=== PATIENT | female | born 1950 ===

== ENCOUNTER 2022-09-17 14:45 | Inpatient (IN) | payer MEDICARE, BC, SELFPAY ==
[2022-09-17] VITALS (33 sets, daily range): BP systolic 117–157; BP diastolic 57–107; PULSE 91–126; RESP 4–28; TEMP 31–37.5; O2SAT 90–97
--- NOTE | 2022-09-17 15:00 | DI.RAD_ITS ---
Exam(s) XR PORTABLE CHEST AP EXAM: XR PORTABLE CHEST AP CLINICAL HISTORY: shortness of breath. TECHNIQUE: 2D digital imaging was performed. COMPARISON: CR XR CHEST 1 VW from 05/26/2022 FINDINGS: Single AP portable view. Heart size is upper normal. The mediastinum is not widened. Hyperinflation again noted but there is now atelectasis in the left lung base-left lower lobe. Right lung is clear. No pleural effusions. No pulmonary edema. IMPRESSION: Left lung base atelectasis and what is probably developing infiltrate. No pleural effusions. DATA REPOSITORY: RADIATION DOSE DELIVERED:
--- NOTE | 2022-09-17 15:00 | RT.EKG_ITS ---
APPROVED REPORT Exam: Resting ECG Reason for Exam: dyspnea Patient Location: E HR:96 bpm ECG Measurements Heart Rate 96 AXIS TN 138 P 77 QRSd 85 QRS 75 QT 333 T 80 QTc 420 Conclusion Sinus rhythm...normal P axis, V-rate 60- 99
--- NOTE | 2022-09-17 15:03 | ED.GENADUL_ITS ---
Discharge Plan Disposition Patient Disposition: Admit to [facility] Condition: Stable Discharge Details Chief Complaint: RespSymp Clinical Impression: COPD exacerbation Primary Care Provider: Yang Burgos ED Provider: Francisco Oviedo Home Meds and New Rx's Prescriptions: No Action alum-mag hydroxide-simeth [Mylanta Maximum Strength] 400-400-40 mg/5 mL suspension 5 ml PO QID PRN azithromycin 250 mg tablet 250 mg PO DAILY Rx Instructions: Take 1 tablet by mouth daily for 4 days prednisone 20 mg tablet 20 mg PO DAILY Rx Instructions: Take 2 tablets by mouth daily for 5 days albuterol sulfate 2.5 mg /3 mL (0.083 %) solution for nebulization 2.5 mg inhalation Q6H PRN albuterol sulfate 90 mcg/actuation HFA aerosol inhaler See Rx Instructions inhalation DIRECTED Rx Instructions: inhaled as directed; lorazepam 0.5 mg tablet 0.5 mg PO DAILY PRN montelukast 10 mg tablet 10 mg PO DAILY Mucinex 1,200 mg tablet extended release 12hr 1,200 mg PO BID prednisone 5 mg tablet 10 mg PO DAILY sertraline 25 mg tablet 75 mg PO DAILY Spiriva with HandiHaler 18 mcg capsule, w/inhalation device 1 cap inhalation DAILY Rx Instructions: puncture 1 cap using device; one dose = 2 inhalations trazodone 150 mg tablet 150 mg PO QHS PRN Medical Decision Making 72 yo female with hx of severe copd on home o2 who comes in with 2-3 weeks of slowly worsening shortness of breath. She was seen at [facility] 2 days ago and then [facility] yesterday and was offered admission but reportedly declined at that time. She is chronically on prednisone and was started on azithromycin yesterday. She went to her first pulmonology visit today and due to her work of breathing was referred here. She denies fevers, chest pain/pressure, has had a cough. She is 92% on 4L NC and can only speak in 3-4 word sentences at most. She is caox4, has diffuse wheezing bilaterally, no pedal edema or calf tenderness, no murmurs. Her history and presentation are consistent with a copd exacerbation, will treat with iv solumedrol, duoneb and reassess. She has no evidence of dvt on exam and her exam is consistent with copd so doubt PE at this time and also had negative cta yesterday at [facility], and no chest pain/pressure to suggest acs, will obtain ecg and troponin to screen for this along with cbc and cmp and portable chest xray. She does confirm that she is dnr/dni. pt stable, still with wheezing and tachypnea, xray read as possible left lower developing infiltrate. Given her age and underlying copd do not feel she is safe for d/c, discussed with Dr. Alexis who accepts for admission, requests iv azithro and cefepime be given. Pt and daughter in agreement with plan. Differential Diagnosis Differential Diagnosis: copd, pneumonia, covid Imaging Data Radiologic Study: Attestation: I personally reviewed and interpreted this imaging study as follows: Imaging: X-Ray Radiologist's impression: possible developing left lower lobe infiltrate Lab Data Lab results reviewed: Yes I reviewed the patient's lab results. ECG Data Attestation: I personally reviewed and interpreted this ECG (s) as follows: Prior ECG tracings: not available for review Interpretation: sinus rhythm, rate of 96, pr 138, qtc 420, no stemi HPI General Mode of arrival: wheelchair . Date/Time Provider Initiated Documentation: 09/17/22 14:51 . Limitations to Documentation: no limitations . Information obtained by: patient . History of Present Illness 72 year old F presents to the emergency department with the chief complaint of shortness of breath, described as moderate, Patient started experiencing this week(s) (2) and it has been constant. No relieving factors improve symptom(s), No exacerbating factors reported . Patient notes cough; denies chest pain, fever/chills and nausea/vomiting. Patient did receive the following treatments prior to arrival, none Related Data Home Medications Medication Instructions Recorded Confirmed albuterol sulfate 2.5 mg/3 mL 2.5 mg inhalation Q6H PRN 07/13/22 09/17/22 (0.083 %) solution for nebulization albuterol sulfate 90 mcg/actuation See Rx Instructions inhalation 07/13/22 09/17/22 aerosol inhaler DIRECTED guaifenesin 1,200 mg tablet, 1,200 mg PO BID 07/13/22 09/17/22 extended release 12 hr (Mucinex) lorazepam 0.5 mg tablet 0.5 mg PO DAILY PRN 07/13/22 09/17/22 montelukast 10 mg tablet 10 mg PO DAILY 07/13/22 09/17/22 prednisone 5 mg tablet 10 mg PO DAILY 07/13/22 09/17/22 sertraline 25 mg tablet 75 mg PO DAILY 07/13/22 09/17/22 tiotropium bromide 18 mcg capsule 1 cap inhalation DAILY 07/13/22 09/17/22 with inhalation device (Spiriva with HandiHaler) trazodone 150 mg tablet 150 mg PO QHS PRN 07/13/22 09/17/22 aluminum-mag hydroxide-simethicone 5 ml PO QID PRN 09/17/22 09/17/22 400 mg-400 mg-40 mg/5 mL oral susp (Mylanta Maximum Strength) azithromycin 250 mg tablet 250 mg PO DAILY 09/17/22 09/17/22 prednisone 20 mg tablet 20 mg PO DAILY 09/17/22 09/17/22 Allergies Allergy/AdvReac Type Severity Reaction Status Date / Time escitalopram [From Lexapro] Allergy Unknown Nausea Verified 09/17/22 14:53 General Stated Complaint: RespSymp JOSEPHINE: 2 Review of Systems All systems reviewed & are unremarkable except as noted in HPI and below Constitutional Constitutional: Denies chills, Denies fever(s) and Denies weakness Cardiovascular Cardiovascular: Denies chest pain Respiratory Respiratory: Reports cough Gastrointestinal Gastrointestinal: Denies abdominal pain, Denies nausea and Denies vomiting Integumentary/Breasts Skin/Breast: Denies rash Neurologic Neurologic: Denies weakness PFSH All Active Problems (Updated 09/17/22 @ 16:22 by Francisco Oviedo MD) COPD exacerbation (Acute) Anxiety disorder, unspecified (Acute) Depression, unspecified (Chronic) Oxygen dependent (Acute) Diabetes (Chronic) COPD (chronic obstructive pulmonary disease) (Chronic) Medical History (Updated 09/17/22 @ 16:22 by Francisco Oviedo MD) Left breast lump Surgical History (Updated 07/13/22 @ 13:42 by Erna Gan) Cataract Family History (Updated 07/18/22 @ 11:20 by Aury Alcantara RN, RN) Father Cancer Brother Heart disease Heart attack Mother Heart disease Social History (Updated 07/18/22 @ 11:19 by Aury Alcantara RN, RN) Smoking/Tobacco Use Status: Former Tobacco Use Quit Date: 07/01/18 Tobacco: How many years used: 42 Smoking risk assessment performed?: Yes Alcohol Intake: never Drug use: Never Substance use type: does not use Exam Const Orientation: alert HENMT Head: normal to inspection Ears: external ears normal General nose exam: external nose normal Mouth: moist mucous membranes Eyes General: appearance normal, both eyes and all related structures Neck Neck: normal visual inspection Resp Effort & Inspection: not able to speak in complete sentences Auscultation: wheezes Cardio Rate: regular rate Heart Sounds: no murmurs Skin General skin exam: no rashes or lesions noted Neuro General: patient alert and patient oriented x3 Extrem General: normal to inspection Psych Mental Status: mental status grossly normal Course Vital Signs Vital signs: Vital Signs Temperature 36.8 C 09/17/22 14:49 Pulse 110 H 09/17/22 14:49 Respiratory Rate 26 H 09/17/22 14:49 Blood Pressure 143/77 H 09/17/22 14:49 Pulse Oximetry 94 09/17/22 14:49 Temperature 36.8 C 09/17/22 14:49 Temperature Source Oral 09/17/22 14:49 Pulse 110 H 09/17/22 14:49 Respiratory Rate 26 H 09/17/22 14:49 Respiratory Effort Short of Breath 09/17/22 14:54 Blood Pressure 143/77 H 09/17/22 14:49 Blood Pressure Position Sitting 09/17/22 14:49 Pulse Oximetry 94 09/17/22 14:49 Oxygen Delivery Method Nasal Cannula 09/17/22 14:49 Oxygen Flow Rate 4 09/17/22 14:49 Pain Level 0 09/17/22 14:49 Lab/Test Results Lab/Test Results: 09/17/22 15:00 Blood Blood Culture - Pending 09/17/22 15:00 Blood Blood Culture - Pending
[2022-09-17 15:09] LABS: BE (Venous) 4 mmol/L (-2-3); HCO3 (Venous) 29 mmol/L (23-28); O2 Sat (Venous) 85 %; TCO2 (Venous) 26 mmol/L (24-29); pCO2 (Venous) 51 mmHg (41-51); pH (Venous) 7.37 (7.31-7.41); pO2 (Venous) 49 mmHg
[2022-09-17 15:10] LABS: Abs Immature Grans 0.09 10^3/uL (0.0-0.06); Absolute Basophil Count 0.03 10^3/uL (0.0-0.2); Absolute Eosinophil Count 0.03 10^3/uL (0.0-0.7); Absolute Lymphocyte Count 0.84 10^3/uL (1.2-3.4); Absolute Monocyte Count 0.82 10^3/uL (0.1-0.8); Absolute Neutrophil Count 11.38 10^3/uL (1.2-6.7); Basophils % 0.2; Eosinophils % 0.2; HCT 47.5 % (36.0-46.0); Immature Grans % 0.7; Lymphocytes % 6.4; MCH 28.4 pg (27.0-33.0); MCHC 31.6 % (32.0-36.0); MCV 90 fL (80-95); MPV 8.9 fL (8.0-11.0); Monocytes % 6.2; Neutrophils % 86.3; Platelet Count 236 10^3/uL (130-400); RBC 5.28 10^6/uL (3.93-5.22); RDW 13.8 % (11.7-14.6); RDW-SD 45.8 fL; WBC 13.19 10^3/uL (4.4-10.8)
[2022-09-17 15:12] LABS: BE 3 mmol/L (-2-3); HCO3 28 mmol/L (22-26); pCO2 42 mmHg (35-45); pH 7.43 (7.35-7.45); pO2 95 mmHg (80-105); sO2 98 % (95-98); tCO2 24 mmol/L (23-27)
[2022-09-17 15:15] LABS: FIO2L 3 L; Site Right Radial
[2022-09-17] MEDS: methylPREDNISolone SUCC 125 MG VIAL IVP (15:25)
[2022-09-17] MEDS: Normal Saline Flush 10 ML SYR IVP ×3 (15:26→20:25)
[2022-09-17] MEDS: Albuterol/Ipratropium 3 ML UPD VIAL UPD (15:35)
[2022-09-17 15:39] LABS: ALT 23 U/L (14-59); AST 13 U/L (15-37); Albumin 3.6 g/dL (3.4-5.0); Alkaline Phosphatase 93 U/L (46-116); BUN 14 mg/dL (7-18); Bilirubin, Total 0.4 mg/dL (0.2-1.0); CREATININE 0.8 mg/dL (0.55-1.02); Calcium 9.4 mg/dL (8.5-10.1); Chloride 105 mmol/L (98-107); Estimated GFR 79.22 (mL/min/1.73m2); Glucose 160 mg/dL (74-106); Magnesium 2.3 mg/dL (1.8-2.4); NT-proBNP 103 pg/mL (<300); Potassium 4.2 mmol/L (3.5-5.1); Sodium 141 mmol/L (136-145); Total Protein 7.2 g/dL (6.4-8.2); Troponin I < 50 ng/L (<or=60)
--- NOTE | 2022-09-17 15:43 | RESPIRATORY ---
RT called to bedside for pt in reported COPD exacerbation. On arrival, pt's SpO2 was 98% on 4L nasal cannula. Pt states that she normally wears 3-4L O2 through [employer] and has had O2 for approximately 2 years. RT leticia ABG which showed PH 7.43 / PCO2 42 / PO2 95 / HCO3 28. Lungs were diminished throughout with some noted rhonchi on the ride side. RT administered Duoneb and titrated O2 to maintain SpO2 88-92% per COPD guidelines. RT also educated pt on good breathing techniques, and use and purpose of incentive spirometer and acapella devices.
[2022-09-17 16:08] LABS: Procalcitonin < 0.1 ng/mL
[2022-09-17 16:29] LABS: COVID-19 PCR Negative (Negative); Influenza A PCR Negative (Negative); Influenza B PCR Negative (Negative); RSV PCR Negative (Negative)
[2022-09-17 16:31] LABS: Source Nasopharynx
[2022-09-17] MEDS: CEFEPIME 2 GM in Normal Saline 100 ML IVPB (16:41)
--- NOTE | 2022-09-17 18:49 | W.PM.HP.N ---
Date of service: 09/17/22 Time of Service: 18:49 Assessment and Plan Assessment and plan (1) COPD exacerbation: Status: Acute Assessment and plan: Chronic end stage COPD; Acute exacerbationl possible pneumonia IV steroids, oxygen, nebulizers, VBG pending; abx Cefepime and Azithromycin IV Takes Prednisone daily Pulmonology consult Morphine PRN (2) Anxiety disorder, unspecified: Status: Chronic Assessment and plan: Chronic - Continue Trazadone 150 mg HS Lorazepam PRN (3) Depression, unspecified: Status: Chronic Assessment and plan: Chronic; continue home meds Sertraline 75 mg daily (4) Oxygen dependent: Status: Acute Assessment and plan: Chronic home O2; adjust O2 as needed - does not want to be intubated, reviewed and confirmed, also DNR, OK for BiPap or high flow O2 as needed. (5) DVT prophylaxis: Status: Acute Assessment and plan: Enoxaparin 40 mg daily (6) Discharge planning issues: Status: Acute Assessment and plan: Home when stable Out pt Pulmonology referral History of Present Illness History of Present Illness Chief Complaint: Difficulty breathing Narrative: This is a 72 yo female patient with pmhx of severe copd on home o2 who presented to the [facility] ED, being sent from her pulmonology appointment. She complained of 2-3 weeks of slowly worsening shortness of breath. She was seen at [facility] 2 days ago and then [facility] yesterday and was offered admission to both hospitals, but reportedly declined at that time. She is chronically on prednisone and was started on oral azithromycin yesterday. She denied fevers, chest pain/pressure, has had a cough. She was 92% on 4L NC and could only speak in 3-4 word sentences at most. She was caox4, had diffuse wheezing bilaterally, no pedal edema or calf tenderness, no murmurs. Her history and presentation were consistent with a copd exacerbation. She was started on solumedrol, duonebs. She did have a negative Chest CTA yesterday @ [facility]. CXR here, possible developing infiltrate LLL. She is admitted to the medical floor for treatment of COPD. Reviewed code status - confirmed DNR/DNI, willing to do high flow oxygen, and BiPap as needed. One word dyspnea on adm to floor - discussed tx with Dr Alexis. Discussed with Dr Murillo. Review of Systems All systems reviewed & are unremarkable except as noted in HPI and below PFSH All Active Problems (Updated 09/17/22 @ 22:38 by Carina Graham NP) Discharge planning issues (Acute) DVT prophylaxis (Acute) COPD exacerbation (Acute) Anxiety disorder, unspecified (Chronic) Depression, unspecified (Chronic) Oxygen dependent (Acute) Diabetes (Chronic) COPD (chronic obstructive pulmonary disease) (Chronic) Medical History (Updated 09/17/22 @ 22:38 by Carina Graham NP) Left breast lump Surgical History (Updated 07/13/22 @ 13:42 by Erna Gan) Cataract Family History (Updated 07/18/22 @ 11:20 by Aury Alcantara RN, RN) Father Cancer Brother Heart disease Heart attack Mother Heart disease Social History (Updated 07/18/22 @ 11:19 by Aury Alcantara RN, RN) Smoking/Tobacco Use Status: Former Tobacco Use Quit Date: 07/01/18 Tobacco: How many years used: 42 Smoking risk assessment performed?: Yes Alcohol Intake: never Drug use: Never Substance use type: does not use Meds Allergies and Home Medications Allergies Allergy/AdvReac Type Severity Reaction Status Date / Time escitalopram [From Lexapro] Allergy Unknown Nausea Verified 09/17/22 14:53 Home Medications Medication Instructions Recorded Confirmed Type albuterol sulfate 2.5 mg/3 mL 2.5 mg inhalation Q6H PRN 07/13/22 09/17/22 History (0.083 %) solution for nebulization albuterol sulfate 90 mcg/actuation See Rx Instructions inhalation 07/13/22 09/17/22 History aerosol inhaler DIRECTED guaifenesin 1,200 mg tablet, 1,200 mg PO BID 07/13/22 09/17/22 History extended release 12 hr (Mucinex) montelukast 10 mg tablet 10 mg PO DAILY 07/13/22 09/17/22 History prednisone 5 mg tablet 10 mg PO DAILY 07/13/22 09/17/22 History sertraline 25 mg tablet 75 mg PO DAILY 07/13/22 09/17/22 History tiotropium bromide 18 mcg capsule 1 cap inhalation DAILY 07/13/22 09/17/22 History with inhalation device (Spiriva with HandiHaler) trazodone 150 mg tablet 150 mg PO QHS PRN 07/13/22 09/17/22 History budesonide-formoterol HFA 160 2 puff inhalation Q12H 09/17/22 09/17/22 History mcg-4.5 mcg/actuation aerosol inhaler (Symbicort) prednisone 20 mg tablet 40 mg PO DAILY 09/17/22 09/17/22 History Exam Const General: anxious, frail appearing and ill appearing Orientation: alert, awake and oriented x3 HENMT Head: normal to inspection Ears: external ears normal General nose exam: external nose normal Mouth: moist mucous membranes Eyes General: appearance normal, both eyes and all related structures Neck Neck: normal visual inspection Chest Chest: normal inspection of the chest Resp Effort & Inspection: not able to speak in complete sentences (1 word dyspnea) Auscultation: wheezes expiratory wheezes, inspiratory wheezes and scattered wheezes Cardio Jugular venous pressure: no JVD Rate: regular rate Heart Sounds: no murmurs GI Inspection: normal to inspection Auscultation: normal bowel sounds Back/Spine/Pelvis Back: no CVA tenderness Skin General skin exam: no rashes or lesions noted Neuro General: patient alert, patient awake, patient oriented x3 and moves all extremities Extrem General: normal to inspection, full ROM and capillary refill normal Psych Mental Status: mental status grossly normal Results Labs 09/17/22 14:55 09/17/22 14:55 Labs: Laboratory Results - last 24 hr 09/17/22 09/17/22 09/17/22 14:55 14:55 14:55 WBC 13.19 H RBC 5.28 H Hgb 15.0 Hct 47.5 H MCV 90 MCH 28.4 MCHC 31.6 L RDW 13.8 Plt Count 236 MPV 8.9 Immature Gran % 0.7 Neutrophils % 86.3 Lymphocytes % 6.4 Monocytes % 6.2 Eosinophils % 0.2 Basophils % 0.2 Nucleated RBC % 0.0 Absolute Neutrophils 11.38 H Absolute Lymphocytes 0.84 L Absolute Monocytes 0.82 H Absolute Eosinophils 0.03 Absolute Basophils 0.03 ABG Sample Site ABG pH ABG pCO2 ABG pO2 ABG HCO3 ABG Total CO2 ABG O2 Saturation ABG Base Excess VBG pH VBG pCO2 VBG pO2 VBG HCO3 VBG Total CO2 VBG O2 Saturation VBG Base Excess Oxygen Liter Flow Sodium 141 Potassium 4.2 Chloride 105 Carbon Dioxide 29.0 Anion Gap 7.0 BUN 14 Creatinine 0.8 Est GFR (CKD-EPI 2020) 79.22 Glucose 160 H Calcium 9.4 Magnesium 2.3 Total Bilirubin 0.4 AST 13 L ALT 23 Alkaline Phosphatase 93 Troponin I < 50 NT-Pro-B Natriuret Pep 103 Total Protein 7.2 Albumin 3.6 Procalcitonin < 0.1 COVID-19 Source SARS-CoV-2 (PCR) Influenza Type A (PCR) Influenza Type B (PCR) RSV (PCR) 09/17/22 09/17/22 09/17/22 14:55 15:10 15:30 WBC RBC Hgb Hct MCV MCH MCHC RDW Plt Count MPV Immature Gran % Neutrophils % Lymphocytes % Monocytes % Eosinophils % Basophils % Nucleated RBC % Absolute Neutrophils Absolute Lymphocytes Absolute Monocytes Absolute Eosinophils Absolute Basophils ABG Sample Site Right Radial ABG pH 7.43 ABG pCO2 42 ABG pO2 95 ABG HCO3 28 H ABG Total CO2 24 ABG O2 Saturation 98 ABG Base Excess 3 VBG pH 7.37 VBG pCO2 51 VBG pO2 49 VBG HCO3 29 H VBG Total CO2 26 VBG O2 Saturation 85 VBG Base Excess 4 H Oxygen Liter Flow 3 Sodium Potassium Chloride Carbon Dioxide Anion Gap BUN Creatinine Est GFR (CKD-EPI 2020) Glucose Calcium Magnesium Total Bilirubin AST ALT Alkaline Phosphatase Troponin I NT-Pro-B Natriuret Pep Total Protein Albumin Procalcitonin COVID-19 Source Nasopharynx SARS-CoV-2 (PCR) Negative Influenza Type A (PCR) Negative Influenza Type B (PCR) Negative RSV (PCR) Negative Last Vital Signs Temp 37.5 C 09/17/22 18:03 Pulse 94 H 09/17/22 18:03 Resp 22 09/17/22 18:03 BP 133/70 09/17/22 18:03 Pulse Ox 92 09/17/22 18:03 Time Spent Time spent with Patient: 55-74 minutes Time was spent: preparing to see the patient(eg.review tests), obtaining and/or reviewing separately otained hiistory, ordering medications,tests, procedures, referring, communicating with other health home care and home health aides teacher, indepentently interpreting results, counseling the patient and care coordination
[2022-09-17] MEDS: Albuterol 2.5 MG/3 ML INH SOLN VIAL IH ×2 (19:20→23:11)
[2022-09-17] MEDS: guaiFENesin 600 MG TABCR 1200 MG PO (19:22)
[2022-09-17] MEDS: LORazepam 0.5 MG TAB PO (19:27)
[2022-09-17 19:48] LABS: BE (Venous) 3 mmol/L (-2-3); HCO3 (Venous) 27 mmol/L (23-28); O2 Sat (Venous) > 99 %; pCO2 (Venous) 43 mmHg (41-51); pH (Venous) 7.41 (7.31-7.41); pO2 (Venous) 186 mmHg
[2022-09-17 20:17] LABS: Troponin I < 50 ng/L (<or=60)
[2022-09-17] MEDS: MORPHine 2 MG/ML SYR 1 MG IVP (20:23)
[2022-09-17] MEDS: methylPREDNISolone SUCC 125 MG VIAL 60 MG IVP (20:24)
[2022-09-17] MEDS: MAGNESIUM SULFATE 1 GM/100 ML BAG IVPB (20:25)
[2022-09-17] MEDS: Enoxaparin 40 MG/0.4 ML SYR SC (20:25)
--- NOTE | 2022-09-17 20:40 | W.EVENT ---
Date of service: 09/17/22 Time of Service: 20:40 Event Note: Carina was in respiratory extremis, tachypneic, tachycardic, using accessory respiratory muscles, diffuse tight wheezes w/ poor air movement. Stat VBG was ordered along w/ continous nebulizer w/ albuterol and additional solumdrol and magnesium. She was given morphine 1 mg ivp. After 3 back to back albuterol treatments and the morphine (and she also had her daily prn dose of ativan 0.5 mg po). She has calmed down and her work of breathing has improved. She did this right after getting out of bed to bedside commode. VBG came back looking much better than I anticipated w/ her pH 7.41, pCO2 43, pO2 186 (this was on total of 7lpm, 6lpm was running through her nebulizer and 1 lpm via her NC). At present I think she does not need the BIPAP. I had a discussion w/ Andrew from RT and Dr. Ramirez. We will try HFNC overnight. She will continue w/ scheduled duonebs every 4 hrs through the night and prn albuterol nebulizers. She will remain on solumedrol 60 mg iv q8hr and cefepime and azithromycin for her pneumonia. In the morning RT will discuss w/ Dr. Ramirez using the [employer] to help her mobilize her secretions. Time Spent with Patient Time spent in critical care(minutes): 60 Time Spent Included: Coordination of care, Chart review, Documenting critically ill care, Time at immediate bedside and Discussing critically ill care with other medical staff
[2022-09-17] MEDS: CEFEPIME 1 GM in Normal Saline 50 ML IVPB (22:16)
--- NOTE | 2022-09-17 22:19 | TELEP.MEDR_ITS ---
Date of service: 09/17/22 Time of Service: 22:19 Telepharmacy Home Med Rec Allergies Allergies: escitalopram [From Lexapro] Allergy (Unknown, Verified 09/17/22 14:53) Nausea Interview Person Interviewed: * patient Quality Quality of Interview/Accuracy of Medication List: Excellent Sources Sources used to compile medication list: Network Chemistry Medication List and Patient List Changes made to Home Medication List: ADDITIONS: * Symbicort 160/4.5mcg 1 puff inhalation BID * Prednisone 40mg Po daily (not started) DELETIONS: * Zithromax * Mylanta * Ativan CHANGES: * none Recommended Changes Attestation: The home medication list is now updated to the best of my knowledge and is ready to be reconciled by the provider. Please contact the TelePharmacy Medication Reconciliation Pharmacist at for any questions.
--- NOTE | 2022-09-17 22:19 | TELEP.MEDREC ---
Date of service: 09/17/22 Time of Service: 22:19 Telepharmacy Home Med Rec Allergies Allergies: escitalopram [From Lexapro] Allergy (Unknown, Verified 09/17/22 14:53) Nausea Interview Person Interviewed: patient Quality Quality of Interview/Accuracy of Medication List: Excellent Sources Sources used to compile medication list: [employer] Medication List and Patient List Changes made to Home Medication List: ADDITIONS: Symbicort 160/4.5mcg 1 puff inhalation BID Prednisone 40mg Po daily (not started) DELETIONS: Zithromax Mylanta Ativan CHANGES: none Recommended Changes Attestation: The home medication list is now updated to the best of my knowledge and is ready to be reconciled by the provider. Please contact the TelePharmacy Medication Reconciliation Pharmacist at for any questions.
[2022-09-17] MEDS: traZODone 100 MG TAB 150 MG PO (23:11)
[2022-09-18] VITALS (15 sets, daily range): BP systolic 128–153; BP diastolic 71–80; PULSE 80–108; RESP 4–20; TEMP 31–37.3; O2SAT 90–97
--- NOTE | 2022-09-18 | DI.CT_ITS ---
Exam(s) CT CHEST PE CTA EXAM: CT CHEST PE CTA CLINICAL HISTORY: dyspnea, hypoxia, elevated d-dimer. TECHNIQUE: Imaging Protocol: Axial CT angiography was performed with multi-slice acquisition and mu lti-planar and/or 3D reconstructions. CONTRAST MATERIAL: Intravenous: Omnipaque 350 contrast volume:100 mL COMPARISON: CR XR PORTABLE CHEST AP from 09/17/2022 FINDINGS: Tracheobronchial tree: Patent where visualized. Pulmonary parenchyma: Moderately severe emphysematous changes are present in the lungs. No focal con solidating infiltrates. Atelectasis or scarring is seen in the left lingula and the right lower lobe . Pulmonary Arteries: No evidence of filling defect to suggest pulmonary emboli. Mediastinum and [place]: No dominant adenopathy or fluid collection. The esophagus is unremarkable. Visualized thyroid gland: Unremarkable. Pleura: No effusion or pneumothorax. Heart: The heart is not dilated. Coronary artery calcification is present. No pericardial effusion. Aorta: Thoracic aorta non-dilated. No evidence of dissection. Atherosclerosis is present. Upper abdomen: There is a 3.4 cm infrarenal abdominal aortic aneurysm. There is a nonspecific 1 cm round hypodensity in the right lobe of the liver. It is too small for further characterization. Soft tissues: Unremarkable. Bones: Within normal limits for the patient's age.There is an old healed left rib fracture. IMPRESSION: 1. No evidence of pulmonary embolism, thoracic aortic dissection or aneurysm. 2. 3.4 cm infrarenal abdominal aortic aneurysm. This is incompletely imaged on the current examinati on. CT scan of the abdomen and pelvis or abdominal ultrasound may be obtained for further evaluation . 3. Moderately severe emphysematous changes in the lungs. Unexpected findings RADIATION DOSE DELIVERED: 300.1mGy.cm Total DLP DATA REPOSITORY: All CT scans at this facility are submitted to the National Radiology Data Registry (NRDR) Dose Index Registry (DIR) with the [employer] (A[employer]). RADIATION OPTIMIZATION: All CT scans at this facility use at least one of these dose optimization te chniques: automated exposure control; mA and/or kV adjustment per patient size (includes targeted exa ms where dose is matched to clinical indication); or iterative reconstruction.
[2022-09-18] MEDS: Budesonide/Formoterol 160/4.5 6 GM 60 PUFF INH IH ×2 (00:30→08:36)
[2022-09-18] MEDS: Normal Saline Flush 10 ML SYR IVP ×4 (04:28→21:06)
[2022-09-18] MEDS: methylPREDNISolone SUCC 125 MG VIAL 60 MG IVP (04:28)
[2022-09-18] MEDS: CEFEPIME 1 GM in Normal Saline 50 ML IVPB (06:23)
--- NOTE | 2022-09-18 06:54 | W.PULMCON ---
General Date Of Service Date of service: 09/18/22 Time of Service: 06:54 Reason for Consult: COPD Exacerbation Assessment and Plan Assessment and plan (1) COPD exacerbation: Status: Acute (2) Oxygen dependent: Status: Acute (3) Respiratory failure with hypoxia: Status: Acute (4) Anxiety disorder, unspecified: Status: Chronic (5) Pneumonia: Status: Acute Assessment and plan: This is a 72 yo admitted from pulmonary clinic yesterday for a COPD exacerbation. Based on her exam, her wheezing is improved from yesterday. Her CXR is not normal (CXR 09/16/22 at [facility] [place] read as normal) with a LLL pneumonia versus atelectasis as well as increased reticular markings appreciated. She likely has a developing pneumonia. Cefepime is likely more broad of coverage than she needs, so I have changed this to ceftriaxone. Additionally, I changed the Symbicort to low ICS dose and started her on Spiriva respimat (as opposed to home handihaler). Prednisone 40mg daily is enough steroid for her. I discontinued the continuous albuterol neb and I do not see the utility of this for her. Her VBG is normal and does not need BiPAP. She was placed on HFNC for work of breathing. I do think anxiety is contributing to her process significantly, and agree with the benzo prn to help with this. I have added a D-dimer to her labs. If this is elevated I will order for a CTPE. If it is negative, I will order her for a chest CT without to further evaluate her abnormal chest imaging. COPD Exacerbation - recommend against continuous nebs or BiPAP - recommend against continuous albuterol nebs - recommend Symbicort 80 (not high dose ICS) - recommend Spiriva respimat - recommend discharging on inhalers above - recommend prednisone 40mg daily with a taper upon D/C: - 40mg for 5 days, 30mg for 3 days, 20mg for 3 days, 10mg for 3 days, 5mg for 3 days - Duonebs QID - prn albuterol - agree with prn lorazepam Pneumonia - have changed cefepime to ceftriaxone - agree with azithromycin - Acapella and IS - no need for more advanced airway clearance at this time Hypoxic respiratory failure - 3-4 LPM O2 at baseline - recommend weaning off HFNC today back to NC if tolerated - no CO2 retention History of Present Illness Narrative: This is a 72 yo who was sent to the Ed from pulmonary clinic today for a COPD exacerbation. She is a new patient to us, who has moved from [place] (where she previously saw pulmonary). She is onSpiriva, albuterol, 5mg prednisone and required 3-4LPM O2. She was seen at [facility] 09/16/22 and was started on a prednisone burst and a Z-pack. She also presented to [facility] 09/09/22 for dyspnea as well. She had a CTA completed then which found no PE or infection. I am unable to view these images. During her visit at pulmonary clinic she was not feeling any better and appeared acutely decompensated during the visit. She was given a Duoneb treatment in clinic and we recommended ED presentation given her acute decompensation. She has a 50pack year smoking history and seems to have recurrent exacerbations. She is on HFNC for work of breathing. She was started on cefepime and azithromycin. She was also started on continuous albuterol for an unclear reason. Her CXR shows a likely LLL pneumonia vs atelectasis and increase reticular markings and a possible LLL nodule. She states she has had several PFT's in the past in [place], but we do not have access to these. Today she is states she slept okay overnight. She does not feel as though she has chest congestion and is not coughing a large amount of sputume up. She is unsure if she is feeling better as she has not gotten up to walk around yet. Review of Systems All systems reviewed & are unremarkable except as noted in HPI and below PFSH All Active Problems (Updated 09/18/22 @ 08:52 by Francheska Ramirez MD) Respiratory failure with hypoxia (Acute) Pneumonia (Acute) Discharge planning issues (Acute) DVT prophylaxis (Acute) COPD exacerbation (Acute) Anxiety disorder, unspecified (Chronic) Depression, unspecified (Chronic) Oxygen dependent (Acute) Diabetes (Chronic) COPD (chronic obstructive pulmonary disease) (Chronic) Medical History (Updated 09/18/22 @ 08:52 by Francheska Ramirez MD) Left breast lump Surgical History (Updated 07/13/22 @ 13:42 by Erna Gan) Cataract Family History (Updated 01/18/23 @ 11:20 by Aury Alcantara RN, RN) Father Cancer Brother Heart disease Heart attack Mother Heart disease Social History (Updated 07/18/22 @ 11:19 by Aury Alcantara RN, RN) Smoking/Tobacco Use Status: Former Tobacco Use Quit Date: 07/01/18 Tobacco: How many years used: 42 Smoking risk assessment performed?: Yes Alcohol Intake: never Drug use: Never Substance use type: does not use Visit Medication and Allergies Active Medications Generic Name Dose Route Start Last Admin Trade Name Freq PRN Reason Stop Dose Admin Albuterol Sulfate 2.5 mg 09/17/22 19:54 09/17/22 23:11 Albuterol 2.5 Mg/3 Ml Inh Soln Vial IH 2.5 mg Q1H PRN PRN Administration Albuterol/Ipratropium 3 ml 09/18/22 08:30 Albuterol/Ipratropium 3 Ml Upd Vial UPD QID ALIYAH Budesonide/Formoterol Fumarate 2 puff 09/17/22 23:00 09/18/22 00:30 Budesonide/Formoterol 160/4.5 6 Gm 60 Puff Inh IH 2 puff [phone] ALIYAH Administration Device 1 each 09/17/22 23:00 Inhaler, Assist Device MC DIRECTED ALIYAH Enoxaparin Sodium 40 mg 09/18/22 08:30 Enoxaparin 40 Mg/0.4 Ml Syr SC DAILY ALIYAH Guaifenesin 1,200 mg 09/17/22 20:00 09/17/22 19:22 Guaifenesin 600 Mg Tabcr PO 1,200 mg BID ALIYAH Administration Sodium Chloride 500 mls @ 0 mls/hr 09/17/22 15:00 Saline 500ml Bag IV PRN PRN As Directed Azithromycin 250 mg/ Sodium 500 mls @ 166.6 mls/hr 09/18/22 07:15 Chloride IVPB Q24H ALIYAH Ceftriaxone Sodium/Dextrose 1 gm in 50 mls @ 100 mls/hr 09/18/22 07:00 Rocephin IVPB Q24H ALIYAH IV Miscellaneous Supplies 1 each 09/17/22 15:00 Iv Access IV DIRECTED ALIYAH Lorazepam 0.5 mg 09/17/22 21:07 Lorazepam 0.5 Mg Tab PO TID PRN PRN Montelukast Sodium 10 mg 09/18/22 08:30 Montelukast 10 Mg Tab PO DAILY [facility] Morphine Sulfate 1 mg 09/17/22 19:52 Morphine 2 Mg/Ml Syr IVP Q2H PRN PRN Non-Formulary Medication 5 ml 09/17/22 18:57 Alum-Mag Hydroxide-Simeth [Mylanta Maximum Strength] PO QID PRN Non-Formulary Medication 1 cap 09/18/22 08:30 Tiotropium [place] [Spiriva With Handihaler] IH DAILY [facility] Prednisone 40 mg 09/18/22 08:30 Prednisone 20 Mg Tab PO DAILY [facility] Sertraline HCl 75 mg 09/18/22 08:30 Sertraline 25 Mg Tab PO DAILY [facility] Sodium Chloride 0 ml 09/17/22 15:00 09/18/22 06:24 Normal Saline Flush 10 Ml Syr IVP 20 ml PRN PRN Administration Trazodone HCl 150 mg 09/17/22 19:08 09/17/22 23:11 Trazodone 100 Mg Tab PO 150 mg HS PRN PRN Administration Allergies escitalopram [From Lexapro] Allergy (Unknown, Verified 09/17/22 14:53) Nausea Exam Narrative Exam Narrative: Gen: NAD, normal respiratory effort, well-nourished HENT: PERRL Chest: No respiratory distress, normal appearance of chest, slight expiratory wheezing bilateral lower lung bello Heart: regular rate and rhythym, no murmurs, rubs or gallops Abdomen: Non-distended, soft, non tender Extremities: No clubbing, edema, cyanosis, rashes Neuro: AAOx3 , non focal Psych: cooperative, appropriate mental affect Results Last Vital Signs Temp 36.4 C L 09/18/22 06:36 Pulse 82 09/18/22 06:36 Resp 18 09/18/22 06:36 BP 128/71 09/18/22 06:36 Pulse Ox 91 L 09/18/22 06:36 Labs 09/17/22 14:55 09/17/22 14:55 Labs: Laboratory Results - last 24 hr 09/17/22 09/17/22 09/17/22 14:55 14:55 14:55 WBC 13.19 H RBC 5.28 H Hgb 15.0 Hct 47.5 H MCV 90 MCH 28.4 MCHC 31.6 L RDW 13.8 Plt Count 236 MPV 8.9 Immature Gran % 0.7 Neutrophils % 86.3 Lymphocytes % 6.4 Monocytes % 6.2 Eosinophils % 0.2 Basophils % 0.2 Nucleated RBC % 0.0 Absolute Neutrophils 11.38 H Absolute Lymphocytes 0.84 L Absolute Monocytes 0.82 H Absolute Eosinophils 0.03 Absolute Basophils 0.03 ABG Sample Site ABG pH ABG pCO2 ABG pO2 ABG HCO3 ABG Total CO2 ABG O2 Saturation ABG Base Excess VBG pH VBG pCO2 VBG pO2 VBG HCO3 VBG Total CO2 VBG O2 Saturation VBG Base Excess Oxygen Liter Flow Sodium 141 Potassium 4.2 Chloride 105 Carbon Dioxide 29.0 Anion Gap 7.0 BUN 14 Creatinine 0.8 Est GFR (CKD-EPI 2020) 79.22 Glucose 160 H Calcium 9.4 Magnesium 2.3 Total Bilirubin 0.4 AST 13 L ALT 23 Alkaline Phosphatase 93 Troponin I < 50 NT-Pro-B Natriuret Pep 103 Total Protein 7.2 Albumin 3.6 Procalcitonin < 0.1 COVID-19 Source SARS-CoV-2 (PCR) Influenza Type A (PCR) Influenza Type B (PCR) RSV (PCR) 09/17/22 09/17/22 09/17/22 14:55 15:10 15:30 WBC RBC Hgb Hct MCV MCH MCHC RDW Plt Count MPV Immature Gran % Neutrophils % Lymphocytes % Monocytes % Eosinophils % Basophils % Nucleated RBC % Absolute Neutrophils Absolute Lymphocytes Absolute Monocytes Absolute Eosinophils Absolute Basophils ABG Sample Site Right Radial ABG pH 7.43 ABG pCO2 42 ABG pO2 95 ABG HCO3 28 H ABG Total CO2 24 ABG O2 Saturation 98 ABG Base Excess 3 VBG pH 7.37 VBG pCO2 51 VBG pO2 49 VBG HCO3 29 H VBG Total CO2 26 VBG O2 Saturation 85 VBG Base Excess 4 H Oxygen Liter Flow 3 Sodium Potassium Chloride Carbon Dioxide Anion Gap BUN Creatinine Est GFR (CKD-EPI 2020) Glucose Calcium Magnesium Total Bilirubin AST ALT Alkaline Phosphatase Troponin I NT-Pro-B Natriuret Pep Total Protein Albumin Procalcitonin COVID-19 Source Nasopharynx SARS-CoV-2 (PCR) Negative Influenza Type A (PCR) Negative Influenza Type B (PCR) Negative RSV (PCR) Negative 09/17/22 09/17/22 19:35 19:35 WBC RBC Hgb Hct MCV MCH MCHC RDW Plt Count MPV Immature Gran % Neutrophils % Lymphocytes % Monocytes % Eosinophils % Basophils % Nucleated RBC % Absolute Neutrophils Absolute Lymphocytes Absolute Monocytes Absolute Eosinophils Absolute Basophils ABG Sample Site ABG pH ABG pCO2 ABG pO2 ABG HCO3 ABG Total CO2 ABG O2 Saturation ABG Base Excess VBG pH 7.41 VBG pCO2 43 VBG pO2 186 VBG HCO3 27 VBG Total CO2 VBG O2 Saturation > 99 VBG Base Excess 3 Oxygen Liter Flow Sodium Potassium Chloride Carbon Dioxide Anion Gap BUN Creatinine Est GFR (CKD-EPI 2020) Glucose Calcium Magnesium Total Bilirubin AST ALT Alkaline Phosphatase Troponin I < 50 NT-Pro-B Natriuret Pep Total Protein Albumin Procalcitonin COVID-19 Source SARS-CoV-2 (PCR) Influenza Type A (PCR) Influenza Type B (PCR) RSV (PCR)
[2022-09-18 07:29] LABS: Abs Immature Grans 0.06 10^3/uL (0.0-0.06); Absolute Basophil Count 0.01 10^3/uL (0.0-0.2); Absolute Lymphocyte Count 0.63 10^3/uL (1.2-3.4); Absolute Monocyte Count 0.39 10^3/uL (0.1-0.8); Absolute Neutrophil Count 7.16 10^3/uL (1.2-6.7); Basophils % 0.1; HCT 41.3 % (36.0-46.0); HGB 13.3 g/dL (11.2-15.7); Immature Grans % 0.7; Lymphocytes % 7.6; MCH 28.9 pg (27.0-33.0); MCHC 32.2 % (32.0-36.0); MCV 90 fL (80-95); MPV 9.2 fL (8.0-11.0); Monocytes % 4.7; Neutrophils % 86.9; Platelet Count 209 10^3/uL (130-400); RBC 4.61 10^6/uL (3.93-5.22); RDW 13.9 % (11.7-14.6); WBC 8.25 10^3/uL (4.4-10.8)
[2022-09-18 07:38] LABS: Lab Add On Test DONE
[2022-09-18] MEDS: Sertraline 25 MG TAB 75 MG PO (07:39)
[2022-09-18] MEDS: LORazepam 0.5 MG TAB PO ×2 (07:40→21:44)
[2022-09-18] MEDS: guaiFENesin 600 MG TABCR 1200 MG PO ×2 (07:40→21:03)
[2022-09-18] MEDS: Enoxaparin 40 MG/0.4 ML SYR SC (07:40)
[2022-09-18] MEDS: predniSONE 20 MG TAB 40 MG PO (07:41)
[2022-09-18] MEDS: Montelukast 10 MG TAB PO (07:41)
[2022-09-18] MEDS: cefTRIAXone 1 GM/50 ML BAG IVPB (07:42)
[2022-09-18 07:46] LABS: Anion Gap 5.2 mmol/L (3-11); BUN 16 mg/dL (7-18); C-Reactive Protein 1.38 mg/dL (0.0-0.3); CO2 28.8 mmol/L (21.0-32.0); CREATININE 0.8 mg/dL (0.55-1.02); Calcium 8.5 mg/dL (8.5-10.1); Chloride 109 mmol/L (98-107); Estimated GFR 79.22 (mL/min/1.73m2); Glucose 144 mg/dL (74-106); Magnesium 2.5 mg/dL (1.8-2.4); Potassium 4.6 mmol/L (3.5-5.1); Sodium 143 mmol/L (136-145)
[2022-09-18] MEDS: Albuterol/Ipratropium 3 ML UPD VIAL UPD ×4 (08:36→21:02)
[2022-09-18 09:31] LABS: D-Dimer 1130 ng/mlFEU (<500)
--- NOTE | 2022-09-18 10:26 | PDOC.CMIN ---
- If Service Date Differs Date of service: 09/18/22 Time of Service: 10:26 Care Management Initial Assess REASON FOR HOSPITALIZATION:: Community acquired pneumonia, exacerbation of COPD PAST MEDICAL HISTORY/PAST SURGICAL HISTORY:: All Active Problems. Discharge planning issues (Acute). DVT prophylaxis (Acute). COPD exacerbation (Acute). Anxiety disorder, unspecified (Chronic). Depression, unspecified (Chronic). Oxygen dependent (Acute). Diabetes (Chronic). COPD (chronic obstructive pulmonary disease) (Chronic). Medical History. Left breast lump. Surgical History. Cataract PREVIOUS FUNCTIONAL STATUS/SOCIAL/FAMILY SUPPORTS:: Carina lives in [place]. She has a sister, brother in law, and daughter who live locally. She is independent at baseline. CURRENT FUNCTIONAL STATUS:: Carina was resting when CM attempted to meet with her. Earlier, she met with Palliative care to discuss goals of care. She also met with Pulmonology, who made recommendations for the treatment of her COPD, pneumonia, hypoxic respiratory failure, as well as anxiety. CM will continue to follow. ADVANCE DIRECTIVES:: On file. Maria E (sister) listed as agent. Has patient been provided with info about the portal/API?: Yes Did the patient sign up for the portal?: No CODE STATUS:: DNR/DNI INSURANCE COVERAGE / FINANCIAL ISSUES:: [employer]/ [employer] CURRENT HOME/COMMUNITY SERVICES/EQUIPMENT:: Home O2 provided by Benigno Orozco-Alli at baseline. PRIMARY CARE PHYSICIAN:: Yang Burgos POTENTIAL DISCHARGE NEEDS:: Evaluations for further needs, follow up appointments. PATIENT/FAMILY EDUCATION NEEDS:: Review discharge instructions and limitations, discussion of self care needs including ask me three. ANTICIPATED BARRIERS TO DISCHARGE:: None identified. TRANSPORTATION:: Via private vehicle by family. PLAN:: Anticipate Carina will return home once medically cleared. Her daughter will drive her home via private vehicle. She will follow up with her PCP and discharge plan of care. CM will continue to follow.
[2022-09-18] MEDS: Normal Saline - Diluent 50 ML VIAL IJ (10:40)
[2022-09-18] MEDS: Omnipaque 350 MG/ML 500 ML BTL-Imaging package IJ (10:41)
--- NOTE | 2022-09-18 11:09 | W.PALLCONSUL ---
Date of service: 09/18/22 Time of Service: 11:09 History of Present Illness Narrative: Carina Medeiros is a 72-year-old woman with severe COPD (requiring 3-4 L of supplemental oxygen, chronic prednisone), anxiety/depression, diabetes type 2, diagnosis MARCOS (never treated with CPAP) who was admitted to [facility] yesterday after she failed outpatient treatment for acute exacerbation of COPD. According to admission note, she had had worsening dyspnea for 2 to 3 weeks prior to admission. She had presented both to [facility] (where she lives) and [facility] emergency department (near where she was staying with her daughter in [place]), then treated and offered admission at both places, but declined. She went to her first pulmonology appointment at Dr. Franco's office yesterday and was felt to be in respiratory distress, referred to the ED and admitted at that time. Patient has a years long history of COPD. Smoked up until 2019. Think she has been on oxygen for about 4 years. She is of her monitor who moved to [place] to live with one of her daughters. 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 She had 2 or 3 hospital stays for COPD in the last few years. 6 months ago she moved up to [place] to live with her sister in [place] (Maria E Hendricks) and be closer to her other children who live in [facility] (Krista Triana), [facility] in [place]. She reports 3 or 4 ED visits over the last 6 months since moving up here but this is her first hospital admission in the last 6 months. She does note that after every COPD exacerbation she feels she is does not get back to her previous functioning. Overall slowly declining. Care Team: Primary Care physician: Yang Burgos MD [facility] Pulmonology: [facility], Dr. Franco Social HX: Initially when her youngest was a baby and raised 4 children on her own. Remarried. from currently (he lives with daughter Krista in [facility]). 4 children (daughter in [place], son in [place], daughter and [place], daughter in [place]) Impression of currents health status: Slightly improved from yesterday. What bothers you the most: Not much What worries you the most: I worry about where I am going to be when I go, where my going to be when I . Current information preferences: Wants to discuss everything. Function: Ambulation: Ambulates without assistance ADLs: Independent iADLs: Daughter does finances and pays bills. She can do some vacuuming, laundry, meal preparation, wash dishes. Hearing: No issues Vision: No issues Palliative Performance Scale % Ambulation Activity and Evidence of Disease Self Care Intake Level of Consciousness 100 Full Normal activity, no evidence of disease Full Normal Full 90 Full Normal activity, some evidence of disease Full Normal Full 80 Full Normal activity with effort, some evidence of disease Full Normal or reduced Full 70 Reduced Unable to do normal work, some evidence of disease Full Normal or reduced Full 60 Reduced Unable to do hobby or some housework, significant disease Occasional assist necessary Normal or reduced Full or confusion 50 Mainly sit/lie Unable to do any work, extensive disease Considerable assistance required Normal or reduced Full or confusion 40 Mainly in bed Unable to do any work, extensive disease Mainly assistance Normal or reduced Full, drowsy, or confusion 30 Totally bed bound Unable to do any work, extensive disease Total care Reduced Full, drowsy, or confusion 20 Totally bed bound Unable to do any work, extensive disease Total care Minimal sips Full, drowsy, or confusion 10 Totally bed bound Unable to do any work, extensive disease Total care Mouth care only Drowsy or coma 0 - - - - Patient Score: 70?80 prior to admission Spiritual history: Churches everywhere I go . Does not answer about prayer, does not attend formal services. Palliative review of systems: Pain: No pain Dyspnea: Slightly better than yesterday. GI symptoms: Okay. Appetite: Able to eat small amounts. Depression: History of depression and anxiety. Quite anxious since admission, better since receiving lorazepam. Anxiety: Quite anxious since admission, better since receiving lorazepam. Emotional Distress: Spiritual/Existential Distress: Some, see answers above Labs: 09/17/2021 Cr: 0.8 Liver panel: Normal transaminases Albumin:3.9 CBC: No anemia Advanced Care Planning: Advanced Directive: On file. Reviewed today Health Care Agent: Listed in advanced directive. COLST: None on file. Patient reports she does not want CPR or intubation verbally to me today during visit. Her May 2022 [place] Advanced Directive says no CPR, but does say that she wants a trial of intubation. Needs to be reviewed with patient and confirmed which one she wants. Attempt to call patient once back in the office multiple times today and unable to talk to her via phone. Limitations: Assessment and Plan Assessment and plan (1) Respiratory failure with hypoxia: Status: Acute Assessment and plan: As per hospitalist. (2) COPD (chronic obstructive pulmonary disease): Status: Chronic Assessment and plan: Patient with severe oxygen dependent COPD who recently moved back to the area. Unfortunately had to be admitted to the hospital on the day of her first appointment with new director of digital platforms. I note that she declined recommendation to be admitted for treatment at 2 different hospitals before having to admitted here. When she is feeling better, we can explore why she made this decision My discussion with patient today, she appears to have good insight as to the severity of her COPD. She notes that she gets a little bit worse after each exacerbation, not quite returning to her previous baseline. Reviewed the typical trajectory of COPD (periods of stability interrupted with periods of crisis, often with return to lower level of functioning after each crisis).However she still enjoys life, participating in daily activities with her sister and children and family members. She wants to continue to receive treatment as an outpatient and in the hospital. I introduced the concept of comfort care/hospice as an option for the future, if she felt that the burden of hospitalization outweighed the benefit and wished to remain at home receiving comfort care. Her advanced directive and in her discussion today mentioned that she preferred to at home, but she understands that this may not be possible, depending upon the clinical situation at that time. Palliative care team plans to continue to meet with her during her hospital visit to offer continued support and we are willing to see her as an outpatient after discharge should she be interested in coming to our clinic (not eligible for home visits based on her home town) (3) Oxygen dependent: Status: Acute (4) Palliative care patient: Status: Acute (5) Advanced care planning/counseling discussion: Status: Acute Assessment and plan: 1.CODE STATUS: Patient listed as DNR/DNI, documented by admitting hospitalist saying that she confirms DNR/DNI . However May 2022 advance directive states DNR, but trial of intubation. I only had access to the AD after I met with her and had lefthe hospital. No COLST is on file. Plan: Member of the palliative care team will meet with patient tomorrow to confirm that she has changed her mind to no invasive intubation. After discussion, a COLST will be drawn up reflecting her wishes. 2.HEALTHCARE AGENT: Patient verbally told me a different order of healthcare agent today than is present in her May 2022 advanced directive. Member palliative care team will review this with her tomorrow as well. (6) Anxiety with depression: Status: Acute Assessment and plan: At the time that I see patient, her anxiety/depression appears to be in good control. She has taken a small dose of lorazepam in approximately 4 hours before I see her. PRN use of lorazepam seems to be working well without any respiratory depression. She will continue on her sertraline and trazodone as well. PFSH All Active Problems (Updated 09/18/22 @ 20:31 by Bri Hernández MD) Anxiety with depression (Acute) Advanced care planning/counseling discussion (Acute) Palliative care patient (Acute) Respiratory failure with hypoxia (Acute) Pneumonia (Acute) Discharge planning issues (Acute) DVT prophylaxis (Acute) COPD exacerbation (Acute) Anxiety disorder, unspecified (Chronic) Depression, unspecified (Chronic) Oxygen dependent (Acute) Diabetes (Chronic) COPD (chronic obstructive pulmonary disease) (Chronic) Medical History (Updated 09/18/22 @ 20:31 by Bri Hernández MD) Left breast lump Surgical History (Updated 07/13/22 @ 13:42 by Erna Gan) Cataract Family History (Updated 07/18/22 @ 11:20 by Aury Alcantara RN, RN) Father Cancer Brother Heart disease Heart attack Mother Heart disease Social History (Updated 07/18/22 @ 11:19 by Aury Alcantara RN, RN) Smoking/Tobacco Use Status: Former Tobacco Use Quit Date: 07/01/18 Tobacco: How many years used: 42 Smoking risk assessment performed?: Yes Alcohol Intake: never Drug use: Never Substance use type: does not use Exam Narrative Exam Narrative: Pleasant but tired appearing woman with moderate work of breathing. Able to just barely speak in complete sentences (improvement over yesterday's note which reported single word only without of breath). Color is good. Not hard of hearing. Cooperative, interactive, answers appropriately. Alert, oriented. Occasional harsh deep coughing which is nonproductive. Results Last Vital Signs Temp 36.4 C L 09/18/22 06:36 Pulse 80 09/18/22 08:36 Resp 18 09/18/22 08:36 BP 128/71 09/18/22 06:36 Pulse Ox 95 09/18/22 08:36 Labs 09/18/22 06:20 09/18/22 06:20 Labs: Laboratory Results - last 24 hr 09/17/22 09/17/22 09/17/22 14:55 14:55 14:55 WBC 13.19 H RBC 5.28 H Hgb 15.0 Hct 47.5 H MCV 90 MCH 28.4 MCHC 31.6 L RDW 13.8 Plt Count 236 MPV 8.9 Immature Gran % 0.7 Neutrophils % 86.3 Lymphocytes % 6.4 Monocytes % 6.2 Eosinophils % 0.2 Basophils % 0.2 Nucleated RBC % 0.0 Absolute Neutrophils 11.38 H Absolute Lymphocytes 0.84 L Absolute Monocytes 0.82 H Absolute Eosinophils 0.03 Absolute Basophils 0.03 D-Dimer ABG Sample Site ABG pH ABG pCO2 ABG pO2 ABG HCO3 ABG Total CO2 ABG O2 Saturation ABG Base Excess VBG pH VBG pCO2 VBG pO2 VBG HCO3 VBG Total CO2 VBG O2 Saturation VBG Base Excess Oxygen Liter Flow Sodium 141 Potassium 4.2 Chloride 105 Carbon Dioxide 29.0 Anion Gap 7.0 BUN 14 Creatinine 0.8 Est GFR (CKD-EPI 2020) 79.22 Glucose 160 H Calcium 9.4 Magnesium 2.3 Total Bilirubin 0.4 AST 13 L ALT 23 Alkaline Phosphatase 93 Troponin I < 50 C-Reactive Protein NT-Pro-B Natriuret Pep 103 Total Protein 7.2 Albumin 3.6 Procalcitonin < 0.1 COVID-19 Source SARS-CoV-2 (PCR) Influenza Type A (PCR) Influenza Type B (PCR) RSV (PCR) Add-On Test Request 09/17/22 09/17/22 09/17/22 14:55 15:10 15:30 WBC RBC Hgb Hct MCV MCH MCHC RDW Plt Count MPV Immature Gran % Neutrophils % Lymphocytes % Monocytes % Eosinophils % Basophils % Nucleated RBC % Absolute Neutrophils Absolute Lymphocytes Absolute Monocytes Absolute Eosinophils Absolute Basophils D-Dimer ABG Sample Site Right Radial ABG pH 7.43 ABG pCO2 42 ABG pO2 95 ABG HCO3 28 H ABG Total CO2 24 ABG O2 Saturation 98 ABG Base Excess 3 VBG pH 7.37 VBG pCO2 51 VBG pO2 49 VBG HCO3 29 H VBG Total CO2 26 VBG O2 Saturation 85 VBG Base Excess 4 H Oxygen Liter Flow 3 Sodium Potassium Chloride Carbon Dioxide Anion Gap BUN Creatinine Est GFR (CKD-EPI 2020) Glucose Calcium Magnesium Total Bilirubin AST ALT Alkaline Phosphatase Troponin I C-Reactive Protein NT-Pro-B Natriuret Pep Total Protein Albumin Procalcitonin COVID-19 Source Nasopharynx SARS-CoV-2 (PCR) Negative Influenza Type A (PCR) Negative Influenza Type B (PCR) Negative RSV (PCR) Negative Add-On Test Request 09/17/22 09/17/22 09/18/22 19:35 19:35 06:20 WBC RBC Hgb Hct MCV MCH MCHC RDW Plt Count MPV Immature Gran % Neutrophils % Lymphocytes % Monocytes % Eosinophils % Basophils % Nucleated RBC % Absolute Neutrophils Absolute Lymphocytes Absolute Monocytes Absolute Eosinophils Absolute Basophils D-Dimer ABG Sample Site ABG pH ABG pCO2 ABG pO2 ABG HCO3 ABG Total CO2 ABG O2 Saturation ABG Base Excess VBG pH 7.41 VBG pCO2 43 VBG pO2 186 VBG HCO3 27 VBG Total CO2 VBG O2 Saturation > 99 VBG Base Excess 3 Oxygen Liter Flow Sodium 143 Potassium 4.6 Chloride 109 H Carbon Dioxide 28.8 Anion Gap 5.2 BUN 16 Creatinine 0.8 Est GFR (CKD-EPI 2020) 79.22 Glucose 144 H Calcium 8.5 Magnesium 2.5 H Total Bilirubin AST ALT Alkaline Phosphatase Troponin I < 50 C-Reactive Protein 1.38 H NT-Pro-B Natriuret Pep Total Protein Albumin Procalcitonin COVID-19 Source SARS-CoV-2 (PCR) Influenza Type A (PCR) Influenza Type B (PCR) RSV (PCR) Add-On Test Request 09/18/22 09/18/22 09/18/22 06:20 07:37 07:55 WBC 8.25 RBC 4.61 Hgb 13.3 Hct 41.3 MCV 90 MCH 28.9 MCHC 32.2 RDW 13.9 Plt Count 209 MPV 9.2 Immature Gran % 0.7 Neutrophils % 86.9 Lymphocytes % 7.6 Monocytes % 4.7 Eosinophils % 0.0 Basophils % 0.1 Nucleated RBC % 0.0 Absolute Neutrophils 7.16 H Absolute Lymphocytes 0.63 L Absolute Monocytes 0.39 Absolute Eosinophils 0.00 Absolute Basophils 0.01 D-Dimer 1130 H ABG Sample Site ABG pH ABG pCO2 ABG pO2 ABG HCO3 ABG Total CO2 ABG O2 Saturation ABG Base Excess VBG pH VBG pCO2 VBG pO2 VBG HCO3 VBG Total CO2 VBG O2 Saturation VBG Base Excess Oxygen Liter Flow Sodium Potassium Chloride Carbon Dioxide Anion Gap BUN Creatinine Est GFR (CKD-EPI 2020) Glucose Calcium Magnesium Total Bilirubin AST ALT Alkaline Phosphatase Troponin I C-Reactive Protein NT-Pro-B Natriuret Pep Total Protein Albumin Procalcitonin COVID-19 Source SARS-CoV-2 (PCR) Influenza Type A (PCR) Influenza Type B (PCR) RSV (PCR) Add-On Test Request DONE
--- NOTE | 2022-09-18 13:39 | RESPIRATORY ---
RT spoke with patient concerning the used of a NHV previous as the RT recognized her name from working at [employer]. Patient stated she had a NHV device previously in [place] but was unsure if she could being the device with her when she moved. Patient is interested in getting another device to help with WOB and COPD.
[2022-09-18] MEDS: MORPHine 2 MG/ML SYR 1 MG IVP (14:21)
[2022-09-18] MEDS: AZITHROMYCIN 250 MG in Normal Saline 250 ML IVPB (14:37)
--- NOTE | 2022-09-18 17:00 | W.PM.PROGNOT ---
Date of Service Date of service: 09/18/22 Time of Service: 17:00 Assessment and Plan Assessment and plan (1) COPD exacerbation: Status: Acute Assessment and plan: Chronic end stage COPD; Acute exacerbationl possible pneumonia IV steroids, oxygen, nebulizers, VBG pending; abx Cefepime and Azithromycin IV Takes Prednisone daily Pulmonology consult Morphine PRN (2) Anxiety disorder, unspecified: Status: Chronic Assessment and plan: Chronic - Continue Trazadone 150 mg HS Lorazepam PRN (3) Depression, unspecified: Status: Chronic Assessment and plan: Chronic; continue home meds Sertraline 75 mg daily (4) Oxygen dependent: Status: Acute Assessment and plan: Chronic home O2; adjust O2 as needed - does not want to be intubated, reviewed and confirmed, also DNR, OK for BiPap or high flow O2 as needed. (5) DVT prophylaxis: Status: Acute Assessment and plan: Enoxaparin 40 mg daily (6) Discharge planning issues: Status: Acute Assessment and plan: Home when stable Out pt Pulmonology referral discussed with Dr Alexis Subjective Subjective Patient reports: no new complaints and afebrile Interval history since last seen: reporting shortness of breath which responds well to the morphine. she has not been hypoxic and symptoms seem more related to anxiety Exam Const General: anxious, frail appearing and ill appearing Orientation: alert, awake and oriented x3 HENMT Head: normal to inspection Ears: external ears normal General nose exam: external nose normal Mouth: moist mucous membranes Eyes General: appearance normal, both eyes and all related structures Neck Neck: normal visual inspection Chest Chest: normal inspection of the chest Resp Auscultation: wheezes expiratory wheezes, inspiratory wheezes and scattered wheezes Cardio Jugular venous pressure: no JVD Rate: regular rate Heart Sounds: no murmurs GI Inspection: normal to inspection Auscultation: normal bowel sounds Back/Spine/Pelvis Back: no CVA tenderness Skin General skin exam: no rashes or lesions noted Neuro General: patient alert, patient awake, patient oriented x3 and moves all extremities Extrem General: normal to inspection, full ROM and capillary refill normal Psych Mental Status: mental status grossly normal Objective Last Vital Signs Temp 37.3 C 09/18/22 14:51 Pulse 101 H 09/18/22 16:08 Resp 14 09/18/22 14:51 BP 145/80 H 09/18/22 14:51 Pulse Ox 95 09/18/22 16:08 Laboratory Results - last 24 hr 09/17/22 09/17/22 09/18/22 19:35 19:35 06:20 WBC RBC Hgb Hct MCV MCH MCHC RDW Plt Count MPV Immature Gran % Neutrophils % Lymphocytes % Monocytes % Eosinophils % Basophils % Nucleated RBC % Absolute Neutrophils Absolute Lymphocytes Absolute Monocytes Absolute Eosinophils Absolute Basophils D-Dimer VBG pH 7.41 VBG pCO2 43 VBG pO2 186 VBG HCO3 27 VBG Total CO2 Not Applicable VBG O2 Saturation > 99 VBG Base Excess 3 Sodium 143 Potassium 4.6 Chloride 109 H Carbon Dioxide 28.8 Anion Gap 5.2 BUN 16 Creatinine 0.8 Est GFR (CKD-EPI 2020) 79.22 Glucose 144 H Calcium 8.5 Magnesium 2.5 H Troponin I < 50 C-Reactive Protein 1.38 H Add-On Test Request 09/18/22 09/18/22 09/18/22 06:20 07:37 07:55 WBC 8.25 RBC 4.61 Hgb 13.3 Hct 41.3 MCV 90 MCH 28.9 MCHC 32.2 RDW 13.9 Plt Count 209 MPV 9.2 Immature Gran % 0.7 Neutrophils % 86.9 Lymphocytes % 7.6 Monocytes % 4.7 Eosinophils % 0.0 Basophils % 0.1 Nucleated RBC % 0.0 Absolute Neutrophils 7.16 H Absolute Lymphocytes 0.63 L Absolute Monocytes 0.39 Absolute Eosinophils 0.00 Absolute Basophils 0.01 D-Dimer 1130 H VBG pH VBG pCO2 VBG pO2 VBG HCO3 VBG Total CO2 VBG O2 Saturation VBG Base Excess Sodium Potassium Chloride Carbon Dioxide Anion Gap BUN Creatinine Est GFR (CKD-EPI 2020) Glucose Calcium Magnesium Troponin I C-Reactive Protein Add-On Test Request DONE Time Spent with Patient Time Spent with Patient: 25-34 minutes Time was spent: preparing to see the patient(eg.review tests), obtaining and/or reviewing separately otained hiistory, ordering medications,tests, procedures, indepentently interpreting results and counseling the patient
[2022-09-18] MEDS: Budesonide/Formoterol 80/4.5 6.9 GM 60 PUFF INH IH (21:06)
[2022-09-18] MEDS: traZODone 100 MG TAB 150 MG PO (22:17)
[2022-09-19] VITALS (17 sets, daily range): BP systolic 119–155; BP diastolic 64–75; PULSE 71–102; RESP 4–25; TEMP 31–37.2; O2SAT 92–98
[2022-09-19] MEDS: MORPHine 2 MG/ML SYR 1 MG IVP (07:33)
[2022-09-19] MEDS: Sertraline 25 MG TAB 75 MG PO (07:34)
[2022-09-19] MEDS: guaiFENesin 600 MG TABCR 1200 MG PO ×2 (07:35→20:11)
[2022-09-19] MEDS: Montelukast 10 MG TAB PO (07:35)
[2022-09-19] MEDS: LORazepam 0.5 MG TAB PO ×2 (07:35→20:40)
[2022-09-19] MEDS: predniSONE 20 MG TAB 40 MG PO (07:35)
[2022-09-19] MEDS: cefTRIAXone 1 GM/50 ML BAG IVPB (07:35)
[2022-09-19] MEDS: Enoxaparin 40 MG/0.4 ML SYR SC (07:37)
[2022-09-19] MEDS: Albuterol/Ipratropium 3 ML UPD VIAL UPD ×4 (08:59→20:10)
[2022-09-19] MEDS: Budesonide/Formoterol 80/4.5 6.9 GM 60 PUFF INH IH ×2 (09:02→20:12)
[2022-09-19] MEDS: Tiotropium Bromide-Respimat 10 PUFF INH 2 PUFF IH (09:02)
--- NOTE | 2022-09-19 09:50 | NUR.NOTE ---
Nursing Note: 2 abdoulaye removed from patient left mid ABD area as ordered. Patient tolerated procedure well. No s/sx of infection noted at this time. Will continue to monitor site.
[2022-09-19] MEDS: AZITHROMYCIN 250 MG in Normal Saline 250 ML IVPB (10:58)
--- NOTE | 2022-09-19 11:37 | W.PM.PROGNOT ---
Date of Service Date of service: 09/19/22 Time of Service: 08:30 Assessment and Plan Assessment and plan (1) Anxiety with depression: Status: Acute (2) Respiratory failure with hypoxia: Status: Acute (3) Pneumonia: Status: Acute Assessment and plan: 72 year old female admitted for COPD exacerbation after being sent to the ED from first office appointment. She is on hospital day #2. She is doing much better today. Reports feeling well. Is having difficultly coughing up secretions but finds using the vibraPEP helpful. She reports looking forward to nebulizer treatments. She is no longer wheezing today. She has a gunky cough when I asked her to cough but did not appreciate rhonchi on auscultation. She remains on HFNC 50L, 30% and SpO2 is 94%. Recommend progressive ambulation to edge of bed/OOB in chair. COPD Exacerbation - continue Symbicort 80 - continue Spiriva respimat - discharge on inhalers above - Continue prednisone 40mg daily with a taper upon D/C: - 40mg for 5 days, 30mg for 3 days, 20mg for 3 days, 10mg for 3 days, 5mg for 3 days - Duonebs QID - prn albuterol - Continue prn ativan/morphine for air hunger or increased WOB. - consider transitioning to PO morphine before discharge to send home with for air hunger Pneumonia - continue ceftriaxone and azithromycin - Acapella and IS Hypoxic respiratory failure - 3-4 LPM O2 at baseline - recommend weaning off HFNC back to NC as tolerated -consider timing PRN morphine/ativan with weaning - not a CO2 retainer Exam Const General: comfortable and no acute distress Resp Effort & Inspection: normal respiratory effort and cough Quality of cough: wet Auscultation: clear to auscultation bilaterally, no rales, no rhonchi and no wheezes Objective Last Vital Signs Temp 97.7 F 09/19/22 07:47 Pulse 102 H 09/19/22 08:59 Resp 24 09/19/22 08:59 BP 131/64 09/19/22 07:47 Pulse Ox 93 09/19/22 08:59 Laboratory Results - last 24 hr 09/17/22 19:35 VBG Total CO2 Not Applicable Time Spent with Patient Time Spent with Patient: 25-34 minutes Time was spent: preparing to see the patient(eg.review tests), obtaining and/or reviewing separately otained hiistory, referring, communicating with other health career professional and indepentently interpreting results
[2022-09-19] MEDS: Sertraline 25 MG TAB PO (11:49)
--- NOTE | 2022-09-19 11:59 | CMPROGNOTE_ITS ---
- If Service Date Differs Date of service: 09/19/22 Time of Service: 11:59 Care Management Progress Note S/O: Carina was sitting up on the edge of her bed when CM met with her. She stated that she is feeling ok, although remains very short of breath. She is on high flow O2. She met with Palliative care today with whom she reviewed code status, and completed a new COLST. Palliative care will follow her during this admission, although her living in [place] could [facility] as she would have to travel to [facility] for appointments. CM will continue to follow. A: Carina is a 72 year old female admitted to [facility] on 09/17/22 with community acquired pneumonia, COPD exacerbation. P: Anticipate Carina will return home once medically cleared. Her daughter will drive her home via private vehicle. She will follow up with her PCP and discharge plan of care. CM will continue to follow.
--- NOTE | 2022-09-19 14:00 | W.PM.PROGNOT ---
Date of Service Date of service: 09/19/22 Time of Service: 13:18 Assessment and Plan Assessment and plan (1) COPD exacerbation: Status: Acute Assessment and plan: Chronic end stage COPD; Acute exacerbationl possible pneumonia IV steroids, oxygen, nebulizers, VBG pending; abx Cefepime and Azithromycin IV Takes Prednisone daily Pulmonology consult Morphine PRN (2) Anxiety disorder, unspecified: Status: Chronic Assessment and plan: Chronic - Continue Trazadone 150 mg HS Lorazepam PRN (3) Depression, unspecified: Status: Chronic Assessment and plan: Chronic; continue home meds Sertraline 75 mg daily (4) Oxygen dependent: Status: Acute Assessment and plan: Chronic home O2; adjust O2 as needed - does not want to be intubated, reviewed and confirmed, also DNR, OK for BiPap or high flow O2 as needed. (5) DVT prophylaxis: Status: Acute Assessment and plan: Enoxaparin 40 mg daily (6) Discharge planning issues: Status: Acute Assessment and plan: Home when stable Out pt Pulmonology referral discussed with Dr Alexis Subjective Subjective Patient reports: no new complaints Interval history since last seen: No report of shortness of breath, she has not been hypoxic, she is exhibiting anxiety Exam Const General: anxious, frail appearing and ill appearing Orientation: alert, awake and oriented x3 HENMT Head: normal to inspection Ears: external ears normal General nose exam: external nose normal Mouth: moist mucous membranes Eyes General: appearance normal, both eyes and all related structures Neck Neck: normal visual inspection Chest Chest: normal inspection of the chest Resp Auscultation: wheezes expiratory wheezes, inspiratory wheezes and scattered wheezes Cardio Jugular venous pressure: no JVD Rate: regular rate Heart Sounds: no murmurs GI Inspection: normal to inspection Auscultation: normal bowel sounds Back/Spine/Pelvis Back: no CVA tenderness Skin General skin exam: no rashes or lesions noted Neuro General: patient alert, patient awake, patient oriented x3 and moves all extremities Extrem General: normal to inspection, full ROM and capillary refill normal Psych Mental Status: mental status grossly normal Objective Last Vital Signs Temp 36.5 C 09/20/22 07:47 Pulse 99 H 09/20/22 12:58 Resp 20 09/20/22 12:58 BP 120/73 09/20/22 07:47 Pulse Ox 97 09/20/22 12:58 Laboratory Results - last 24 hr 09/20/22 09/20/22 09/20/22 06:04 06:04 07:42 WBC 7.48 RBC 4.87 Hgb 14.1 Hct 43.4 MCV 89 MCH 29.0 MCHC 32.5 RDW 13.9 Plt Count 168 MPV Immature Gran % 1.5 Neutrophils % 59.2 Lymphocytes % 26.3 Monocytes % 9.1 Eosinophils % 3.5 Basophils % 0.4 Nucleated RBC % 0.0 Absolute Neutrophils 4.43 Absolute Lymphocytes 1.97 Absolute Monocytes 0.68 Absolute Eosinophils 0.26 Absolute Basophils 0.03 Sodium Cancelled 141 Potassium Cancelled 3.8 Chloride Cancelled 107 Carbon Dioxide Cancelled 30.3 Anion Gap Cancelled 3.7 BUN Cancelled 13 Creatinine Cancelled 0.6 Est GFR (CKD-EPI 2020) Cancelled 96.50 Glucose Cancelled 89 Calcium Cancelled 8.6 Magnesium Cancelled 2.1 Time Spent with Patient Time Spent with Patient: 25-34 minutes Time was spent: preparing to see the patient(eg.review tests), obtaining and/or reviewing separately otained hiistory, ordering medications,tests, procedures, referring, communicating with other health child care director, indepentently interpreting results, counseling the patient and care coordination
--- NOTE | 2022-09-19 15:14 | W.PALPGNOTE ---
Date of service: 09/19/22 Time of Service: 14:00 Assessment and Plan Assessment and plan (1) Advanced care planning/counseling discussion: Status: Acute Assessment and plan: Reviewed CODE STATUS, completed COLST form, now aligns with preferences for DNR?I, no feeding tube, trial IVF and abx confirmed HCA: Krista, co-agent Maria E Preference to be at Sister Maria E's reilly for rest of life (2) Palliative care patient: Status: Acute Assessment and plan: PC to continue to follow PRN, inpatient coverage not avail until Fri Follow-up conversations to include hospice eligibility and preferences (3) COPD exacerbation: Status: Acute Assessment and plan: improving (4) Oxygen dependent: Status: Acute (5) Anxiety with depression: Status: Acute Assessment and plan: controlled Subjective Subjective Interval history since last seen: Carina continues to improve, she feels better today; however she is very tired right now due to a busy day, preference is to sleep Tolerating food appropriately, eating is improved Walking is improved, starting to feel stronger Denies pain, dyspnea has improved, anxiety remains controlled with lorazepam Plan to be discharged home to daughter Krista's house, her Sister Maria E is 6, plan to relocate with Maria E when she is feeling better. Her preference is to be at Maria E's home Healthcare agent is listed as Krista and Maria E, preference for Krista to be first Agrees to complete COLST form today Exam Narrative Exam Narrative: General: older adult female, pleasant, fatigued HENMT: Normocephalic atraumatic, hearing appropriate, normal external nose exam, moist mucous membranes Respiratory: Moderate work with respirations, able to complete limited sentences, no respiratory distress noted; HFNC in place Neuro: Speech clear, alert, oriented Psych: cooperative, congruent mood, fatigue limits engagement, judgment/insight good Objective Last Vital Signs Temp 99.0 F 09/19/22 14:40 Pulse 84 09/19/22 14:40 Resp 18 09/19/22 14:40 BP 120/75 09/19/22 14:40 Pulse Ox 95 09/19/22 14:40 Laboratory Results - last 24 hr 09/17/22 19:35 VBG Total CO2 Not Applicable
[2022-09-19] MEDS: Normal Saline Flush 10 ML SYR IVP (20:12)
[2022-09-19] MEDS: traZODone 100 MG TAB 150 MG PO (20:38)
[2022-09-20] VITALS (13 sets, daily range): BP systolic 96–125; BP diastolic 58–73; PULSE 75–101; RESP 2–20; TEMP 36.5–37.4; O2SAT 88–97
[2022-09-20] MEDS: Albuterol 2.5 MG/3 ML INH SOLN VIAL IH (06:26)
[2022-09-20] MEDS: LORazepam 0.5 MG TAB PO ×2 (06:26→17:44)
[2022-09-20 06:33] LABS: Abs Immature Grans 0.11 10^3/uL (0.0-0.06); Absolute Basophil Count 0.03 10^3/uL (0.0-0.2); Absolute Eosinophil Count 0.26 10^3/uL (0.0-0.7); Absolute Lymphocyte Count 1.97 10^3/uL (1.2-3.4); Absolute Monocyte Count 0.68 10^3/uL (0.1-0.8); Absolute Neutrophil Count 4.43 10^3/uL (1.2-6.7); Basophils % 0.4; Eosinophils % 3.5; HCT 43.4 % (36.0-46.0); HGB 14.1 g/dL (11.2-15.7); Immature Grans % 1.5; Lymphocytes % 26.3; MCHC 32.5 % (32.0-36.0); MCV 89 fL (80-95); Monocytes % 9.1; Neutrophils % 59.2; RBC 4.87 10^6/uL (3.93-5.22); RDW 13.9 % (11.7-14.6); RDW-SD 45.2 fL; WBC 7.48 10^3/uL (4.4-10.8)
[2022-09-20] MEDS: Tiotropium Bromide-Respimat 10 PUFF INH 2 PUFF IH (07:35)
[2022-09-20] MEDS: Budesonide/Formoterol 80/4.5 6.9 GM 60 PUFF INH IH ×2 (07:35→19:28)
[2022-09-20] MEDS: Albuterol/Ipratropium 3 ML UPD VIAL UPD ×4 (07:35→19:29)
[2022-09-20 07:51] LABS: Platelet Count 168 10^3/uL (130-400)
[2022-09-20 08:11] LABS: Anion Gap 3.7 mmol/L (3-11); BUN 13 mg/dL (7-18); CO2 30.3 mmol/L (21.0-32.0); CREATININE 0.6 mg/dL (0.55-1.02); Calcium 8.6 mg/dL (8.5-10.1); Chloride 107 mmol/L (98-107); Glucose 89 mg/dL (74-106); Magnesium 2.1 mg/dL (1.8-2.4); Potassium 3.8 mmol/L (3.5-5.1); Sodium 141 mmol/L (136-145)
[2022-09-20] MEDS: Normal Saline 500 ML 100 ML IV (08:52)
[2022-09-20] MEDS: cefTRIAXone 1 GM/50 ML BAG IVPB (08:52)
[2022-09-20] MEDS: Enoxaparin 40 MG/0.4 ML SYR SC (08:53)
[2022-09-20] MEDS: guaiFENesin 600 MG TABCR 1200 MG PO ×2 (08:53→19:43)
[2022-09-20] MEDS: predniSONE 20 MG TAB 40 MG PO (08:53)
[2022-09-20] MEDS: Normal Saline Flush 10 ML SYR IVP ×3 (08:53→19:43)
[2022-09-20] MEDS: Montelukast 10 MG TAB PO (08:53)
[2022-09-20] MEDS: Sertraline 100 MG TAB PO (08:53)
--- NOTE | 2022-09-20 09:44 | W.PULMPROG ---
Assessment and Plan Assessment and plan (1) Anxiety with depression: Status: Acute (2) Respiratory failure with hypoxia: Status: Acute (3) Pneumonia: Status: Acute Assessment and plan: This is a 72 year old female admitted for COPD exacerbation after being sent to the ED from first office appointment. She continues to improve and has no wheezing for me this morning on exam. She is also back onto normal nasal cannula. She is someone who frequently exacerbates and has had multiple hospitalizations. I do think she would benefit from either roflumilast or chronic azithromycin. She is open to participating in the RELIANCE trial, so have referred her and we will randomize her to one group and handle one of these prescriptions as an outpatient. COPD Exacerbation - continue Symbicort 80 - continue Spiriva respimat - discharge on inhalers above - Continue prednisone 40mg daily with a taper upon D/C: - 40mg for 5 days, 30mg for 3 days, 20mg for 3 days, 10mg for 3 days, 5mg for 3 days - Duonebs QID - prn albuterol - Continue prn ativan/morphine for air hunger or increased WOB. - consider transitioning to PO morphine before discharge to send home with for air hunger - recommend PT consultation today and ambulation - referred to RELIANCE trial Pneumonia - continue ceftriaxone and azithromycin - total 5 days of antibiotics - Acapella and IS Hypoxic respiratory failure - 3-4 LPM O2 at baseline - on NC now - not a CO2 retainer General Date Of Service Date of service: 09/20/22 Time of Service: 08:00 Reason for Consult: COPD Exacerbation Subjective 24 Hour Events: Patient liberated from HFNC Note Note: Carina seems to be improving. She states that she has not been up and moving alot. We discussed the importance of this. Exam Narrative Exam Narrative: Gen: NAD, normal respiratory effort, well-nourished HENT: PERRL Chest: No respiratory distress, normal appearance of chest, clear to auscultation bilaterally, no crackles or wheezes, normal inspiratory effort Heart: regular rate and rhythym, no murmurs, rubs or gallops Abdomen: Non-distended, soft, non tender Extremities: No clubbing, edema, cyanosis, rashes Neuro: AAOx3 , non focal Psych: cooperative, appropriate mental affect Objective Last Vital Signs Temp 36.5 C 09/20/22 07:47 Pulse 85 03/23/23 07:47 Resp 18 09/20/22 07:47 BP 120/73 09/20/22 07:47 Pulse Ox 95 09/20/22 07:47 Laboratory Results - last 24 hr 09/20/22 09/20/22 09/20/22 06:04 06:04 07:42 WBC 7.48 RBC 4.87 Hgb 14.1 Hct 43.4 MCV 89 MCH 29.0 MCHC 32.5 RDW 13.9 Plt Count 168 MPV Immature Gran % 1.5 Neutrophils % 59.2 Lymphocytes % 26.3 Monocytes % 9.1 Eosinophils % 3.5 Basophils % 0.4 Nucleated RBC % 0.0 Absolute Neutrophils 4.43 Absolute Lymphocytes 1.97 Absolute Monocytes 0.68 Absolute Eosinophils 0.26 Absolute Basophils 0.03 Sodium Cancelled 141 Potassium Cancelled 3.8 Chloride Cancelled 107 Carbon Dioxide Cancelled 30.3 Anion Gap Cancelled 3.7 BUN Cancelled 13 Creatinine Cancelled 0.6 Est GFR (CKD-EPI 2020) Cancelled 96.50 Glucose Cancelled 89 Calcium Cancelled 8.6 Magnesium Cancelled 2.1 Results Medications Medications: Active Medications Generic Name Dose Route Start Last Admin Trade Name Freq PRN Reason Stop Dose Admin Al Hydrox/Mg Hydrox/Simethicone 30 ml 09/18/22 09:48 Mylanta Suspension 30 Ml Cup PO QID PRN PRN Albuterol Sulfate 2.5 mg 09/17/22 19:54 09/20/22 06:26 Albuterol 2.5 Mg/3 Ml Inh Soln Vial IH 2.5 mg Q1H PRN PRN Administration Albuterol/Ipratropium 3 ml 09/18/22 08:30 09/20/22 07:35 Albuterol/Ipratropium 3 Ml Upd Vial UPD 3 ml QID ALIYAH Administration Budesonide/Formoterol Fumarate 2 puff 09/18/22 20:00 09/20/22 07:35 Budesonide/Formoterol 80/4.5 6.9 Gm 60 Puff Inh IH 2 puffs BID ALIYAH Administration Device 1 each 09/17/22 23:00 Inhaler, Assist Device DIRECTED [facility] Enoxaparin Sodium 40 mg 09/18/22 08:30 09/20/22 08:53 Enoxaparin 40 Mg/0.4 Ml Syr SC 40 mg DAILY ALIYAH Administration Guaifenesin 1,200 mg 09/17/22 20:00 09/20/22 08:53 Guaifenesin 600 Mg Tabcr PO 1,200 mg BID ALIYAH Administration Sodium Chloride 500 mls @ 0 mls/hr 09/17/22 15:00 09/20/22 08:52 Saline 500ml Bag IV 100 mls/hr PRN PRN Administration As Directed Ceftriaxone Sodium/Dextrose 1 gm in 50 mls @ 100 mls/hr 09/18/22 08:00 09/20/22 08:52 Rocephin IVPB 100 mls/hr Q24H ALIYAH Administration Azithromycin 250 mg/ Sodium 250 mls @ 250 mls/hr 09/18/22 10:00 09/19/22 10:58 Chloride IVPB 250 mls/hr Q24H ALIYAH Administration IV Miscellaneous Supplies 1 each 09/17/22 15:00 Iv Access IV DIRECTED ALIYAH Lorazepam 0.5 mg 09/17/22 21:07 09/20/22 06:26 Lorazepam 0.5 Mg Tab PO 0.5 mg TID PRN PRN Administration Montelukast Sodium 10 mg 09/18/22 08:30 09/20/22 08:53 Montelukast 10 Mg Tab PO 10 mg DAILY ALIYAH Administration Morphine Sulfate 1 mg 09/17/22 19:52 09/19/22 07:33 Morphine 2 Mg/Ml Syr IVP 1 mg Q2H PRN PRN Administration Prednisone 40 mg 09/18/22 08:30 09/20/22 08:53 Prednisone 20 Mg Tab PO 40 mg DAILY ALIYAH Administration Sertraline HCl 100 mg 09/20/22 08:30 09/20/22 08:53 Sertraline 100 Mg Tab PO 100 mg DAILY ALIYAH Administration Sodium Chloride 0 ml 09/17/22 15:00 09/20/22 08:53 Normal Saline Flush 10 Ml Syr IVP 10 ml PRN PRN Administration Tiotropium [place] 2 puff 09/19/22 08:30 09/20/22 07:35 Tiotropium [place]-Respimat 10 Puff Inh IH 2 puffs DAILY ALIYAH Administration Trazodone HCl 150 mg 09/17/22 19:08 09/19/22 20:38 Trazodone 100 Mg Tab PO 150 mg HS PRN PRN Administration Allergies escitalopram [From Lexapro] Allergy (Unknown, Verified 09/17/22 14:53) Nausea Labs 09/20/22 06:04 09/20/22 07:42 Labs: 09/17/22 15:50 Blood Blood Culture - Preliminary NO GROWTH 48 HOURS 09/17/22 15:50 Blood Blood Culture - Preliminary NO GROWTH 48 HOURS Laboratory Tests Range/Units 09/17/22 09/17/22 09/17/22 14:55 14:55 14:55 WBC (4.4-10.8) 10^3/uL 13.19 H RBC (3.93-5.22) 10^6/uL 5.28 H Hgb (11.2-15.7) g/dL 15.0 Hct (36.0-46.0) % 47.5 H MCV (80-95) fL 90 MCH (27.0-33.0) pg 28.4 MCHC (32.0-36.0) % 31.6 L RDW (11.7-14.6) % 13.8 Plt Count (130-400) 10^3/uL 236 MPV (8.0-11.0) fL 8.9 Immature Gran % 0.7 Neutrophils % 86.3 Lymphocytes % 6.4 Monocytes % 6.2 Eosinophils % 0.2 Basophils % 0.2 Nucleated RBC % (0.0-0.3) % 0.0 Absolute Neutrophils (1.2-6.7) 10^3/uL 11.38 H Absolute Lymphocytes (1.2-3.4) 10^3/uL 0.84 L Absolute Monocytes (0.1-0.8) 10^3/uL 0.82 H Absolute Eosinophils (0.0-0.7) 10^3/uL 0.03 Absolute Basophils (0.0-0.2) 10^3/uL 0.03 D-Dimer (<500) ng/mlFEU ABG Sample Site ABG pH (7.35-7.45) ABG pCO2 (35-45) mmHg ABG pO2 (80-105) mmHg ABG HCO3 (22-26) mmol/L ABG Total CO2 (23-27) mmol/L ABG O2 Saturation (95-98) % ABG Base Excess (-2-3) mmol/L VBG pH (7.31-7.41) VBG pCO2 (41-51) mmHg VBG pO2 mmHg VBG HCO3 (23-28) mmol/L VBG Total CO2 (24-29) mmol/L VBG O2 Saturation % VBG Base Excess (-2-3) mmol/L Oxygen Liter Flow L Sodium (136-145) mmol/L 141 Potassium (3.5-5.1) mmol/L 4.2 Chloride (98-107) mmol/L 105 Carbon Dioxide (21.0-32.0) mmol/L 29.0 Anion Gap (3-11) mmol/L 7.0 BUN (7-18) mg/dL 14 Creatinine (0.55-1.02) mg/dL 0.8 Est GFR (CKD-EPI 2020) (mL/min/1.73m2) 79.22 Glucose (74-106) mg/dL 160 H Calcium (8.5-10.1) mg/dL 9.4 Magnesium (1.8-2.4) mg/dL 2.3 Total Bilirubin (0.2-1.0) mg/dL 0.4 AST (15-37) U/L 13 L ALT (14-59) U/L 23 Alkaline Phosphatase (46-116) U/L 93 Troponin I (<or=60) ng/L < 50 C-Reactive Protein (0.0-0.3) mg/dL NT-Pro-B Natriuret Pep (<300) pg/mL 103 Total Protein (6.4-8.2) g/dL 7.2 Albumin (3.4-5.0) g/dL 3.6 Procalcitonin ng/mL < 0.1 COVID-19 Source SARS-CoV-2 (PCR) (Negative) Influenza Type A (PCR) (Negative) Influenza Type B (PCR) (Negative) RSV (PCR) (Negative) Add-On Test Request Range/Units 09/17/22 09/17/22 09/17/22 14:55 15:10 15:30 WBC (4.4-10.8) 10^3/uL RBC (3.93-5.22) 10^6/uL Hgb (11.2-15.7) g/dL Hct (36.0-46.0) % MCV (80-95) fL MCH (27.0-33.0) pg MCHC (32.0-36.0) % RDW (11.7-14.6) % Plt Count (130-400) 10^3/uL MPV (8.0-11.0) fL Immature Gran % Neutrophils % Lymphocytes % Monocytes % Eosinophils % Basophils % Nucleated RBC % (0.0-0.3) % Absolute Neutrophils (1.2-6.7) 10^3/uL Absolute Lymphocytes (1.2-3.4) 10^3/uL Absolute Monocytes (0.1-0.8) 10^3/uL Absolute Eosinophils (0.0-0.7) 10^3/uL Absolute Basophils (0.0-0.2) 10^3/uL D-Dimer (<500) ng/mlFEU ABG Sample Site Right Radial ABG pH (7.35-7.45) 7.43 ABG pCO2 (35-45) mmHg 42 ABG pO2 (80-105) mmHg 95 ABG HCO3 (22-26) mmol/L 28 H ABG Total CO2 (23-27) mmol/L 24 ABG O2 Saturation (95-98) % 98 ABG Base Excess (-2-3) mmol/L 3 VBG pH (7.31-7.41) 7.37 VBG pCO2 (41-51) mmHg 51 VBG pO2 mmHg 49 VBG HCO3 (23-28) mmol/L 29 H VBG Total CO2 (24-29) mmol/L 26 VBG O2 Saturation % 85 VBG Base Excess (-2-3) mmol/L 4 H Oxygen Liter Flow L 3 Sodium (136-145) mmol/L Potassium (3.5-5.1) mmol/L Chloride (98-107) mmol/L Carbon Dioxide (21.0-32.0) mmol/L Anion Gap (3-11) mmol/L BUN (7-18) mg/dL Creatinine (0.55-1.02) mg/dL Est GFR (CKD-EPI 2020) (mL/min/1.73m2) Glucose (74-106) mg/dL Calcium (8.5-10.1) mg/dL Magnesium (1.8-2.4) mg/dL Total Bilirubin (0.2-1.0) mg/dL AST (15-37) U/L ALT (14-59) U/L Alkaline Phosphatase (46-116) U/L Troponin I (<or=60) ng/L C-Reactive Protein (0.0-0.3) mg/dL NT-Pro-B Natriuret Pep (<300) pg/mL Total Protein (6.4-8.2) g/dL Albumin (3.4-5.0) g/dL Procalcitonin ng/mL COVID-19 Source Nasopharynx SARS-CoV-2 (PCR) (Negative) Negative Influenza Type A (PCR) (Negative) Negative Influenza Type B (PCR) (Negative) Negative RSV (PCR) (Negative) Negative Add-On Test Request Range/Units 09/17/22 09/17/22 09/18/22 19:35 19:35 06:20 WBC (4.4-10.8) 10^3/uL RBC (3.93-5.22) 10^6/uL Hgb (11.2-15.7) g/dL Hct (36.0-46.0) % MCV (80-95) fL MCH (27.0-33.0) pg MCHC (32.0-36.0) % RDW (11.7-14.6) % Plt Count (130-400) 10^3/uL MPV (8.0-11.0) fL Immature Gran % Neutrophils % Lymphocytes % Monocytes % Eosinophils % Basophils % Nucleated RBC % (0.0-0.3) % Absolute Neutrophils (1.2-6.7) 10^3/uL Absolute Lymphocytes (1.2-3.4) 10^3/uL Absolute Monocytes (0.1-0.8) 10^3/uL Absolute Eosinophils (0.0-0.7) 10^3/uL Absolute Basophils (0.0-0.2) 10^3/uL D-Dimer (<500) ng/mlFEU ABG Sample Site ABG pH (7.35-7.45) ABG pCO2 (35-45) mmHg ABG pO2 (80-105) mmHg ABG HCO3 (22-26) mmol/L ABG Total CO2 (23-27) mmol/L ABG O2 Saturation (95-98) % ABG Base Excess (-2-3) mmol/L VBG pH (7.31-7.41) 7.41 VBG pCO2 (41-51) mmHg 43 VBG pO2 mmHg 186 VBG HCO3 (23-28) mmol/L 27 VBG Total CO2 (24-29) mmol/L Not Applicable VBG O2 Saturation % > 99 VBG Base Excess (-2-3) mmol/L 3 Oxygen Liter Flow L Sodium (136-145) mmol/L 143 Potassium (3.5-5.1) mmol/L 4.6 Chloride (98-107) mmol/L 109 H Carbon Dioxide (21.0-32.0) mmol/L 28.8 Anion Gap (3-11) mmol/L 5.2 BUN (7-18) mg/dL 16 Creatinine (0.55-1.02) mg/dL 0.8 Est GFR (CKD-EPI 2020) (mL/min/1.73m2) 79.22 Glucose (74-106) mg/dL 144 H Calcium (8.5-10.1) mg/dL 8.5 Magnesium (1.8-2.4) mg/dL 2.5 H Total Bilirubin (0.2-1.0) mg/dL AST (15-37) U/L ALT (14-59) U/L Alkaline Phosphatase (46-116) U/L Troponin I (<or=60) ng/L < 50 C-Reactive Protein (0.0-0.3) mg/dL 1.38 H NT-Pro-B Natriuret Pep (<300) pg/mL Total Protein (6.4-8.2) g/dL Albumin (3.4-5.0) g/dL Procalcitonin ng/mL COVID-19 Source SARS-CoV-2 (PCR) (Negative) Influenza Type A (PCR) (Negative) Influenza Type B (PCR) (Negative) RSV (PCR) (Negative) Add-On Test Request Range/Units 09/18/22 09/18/22 09/18/22 06:20 07:37 07:55 WBC (4.4-10.8) 10^3/uL 8.25 RBC (3.93-5.22) 10^6/uL 4.61 Hgb (11.2-15.7) g/dL 13.3 Hct (36.0-46.0) % 41.3 MCV (80-95) fL 90 MCH (27.0-33.0) pg 28.9 MCHC (32.0-36.0) % 32.2 RDW (11.7-14.6) % 13.9 Plt Count (130-400) 10^3/uL 209 MPV (8.0-11.0) fL 9.2 Immature Gran % 0.7 Neutrophils % 86.9 Lymphocytes % 7.6 Monocytes % 4.7 Eosinophils % 0.0 Basophils % 0.1 Nucleated RBC % (0.0-0.3) % 0.0 Absolute Neutrophils (1.2-6.7) 10^3/uL 7.16 H Absolute Lymphocytes (1.2-3.4) 10^3/uL 0.63 L Absolute Monocytes (0.1-0.8) 10^3/uL 0.39 Absolute Eosinophils (0.0-0.7) 10^3/uL 0.00 Absolute Basophils (0.0-0.2) 10^3/uL 0.01 D-Dimer (<500) ng/mlFEU 1130 H ABG Sample Site ABG pH (7.35-7.45) ABG pCO2 (35-45) mmHg ABG pO2 (80-105) mmHg ABG HCO3 (22-26) mmol/L ABG Total CO2 (23-27) mmol/L ABG O2 Saturation (95-98) % ABG Base Excess (-2-3) mmol/L VBG pH (7.31-7.41) VBG pCO2 (41-51) mmHg VBG pO2 mmHg VBG HCO3 (23-28) mmol/L VBG Total CO2 (24-29) mmol/L VBG O2 Saturation % VBG Base Excess (-2-3) mmol/L Oxygen Liter Flow L Sodium (136-145) mmol/L Potassium (3.5-5.1) mmol/L Chloride (98-107) mmol/L Carbon Dioxide (21.0-32.0) mmol/L Anion Gap (3-11) mmol/L BUN (7-18) mg/dL Creatinine (0.55-1.02) mg/dL Est GFR (CKD-EPI 2020) (mL/min/1.73m2) Glucose (74-106) mg/dL Calcium (8.5-10.1) mg/dL Magnesium (1.8-2.4) mg/dL Total Bilirubin (0.2-1.0) mg/dL AST (15-37) U/L ALT (14-59) U/L Alkaline Phosphatase (46-116) U/L Troponin I (<or=60) ng/L C-Reactive Protein (0.0-0.3) mg/dL NT-Pro-B Natriuret Pep (<300) pg/mL Total Protein (6.4-8.2) g/dL Albumin (3.4-5.0) g/dL Procalcitonin ng/mL COVID-19 Source SARS-CoV-2 (PCR) (Negative) Influenza Type A (PCR) (Negative) Influenza Type B (PCR) (Negative) RSV (PCR) (Negative) Add-On Test Request DONE Range/Units 09/20/22 09/20/22 09/20/22 06:04 06:04 07:42 WBC (4.4-10.8) 10^3/uL 7.48 RBC (3.93-5.22) 10^6/uL 4.87 Hgb (11.2-15.7) g/dL 14.1 Hct (36.0-46.0) % 43.4 MCV (80-95) fL 89 MCH (27.0-33.0) pg 29.0 MCHC (32.0-36.0) % 32.5 RDW (11.7-14.6) % 13.9 Plt Count (130-400) 10^3/uL 168 MPV (8.0-11.0) fL Immature Gran % 1.5 Neutrophils % 59.2 Lymphocytes % 26.3 Monocytes % 9.1 Eosinophils % 3.5 Basophils % 0.4 Nucleated RBC % (0.0-0.3) % 0.0 Absolute Neutrophils (1.2-6.7) 10^3/uL 4.43 Absolute Lymphocytes (1.2-3.4) 10^3/uL 1.97 Absolute Monocytes (0.1-0.8) 10^3/uL 0.68 Absolute Eosinophils (0.0-0.7) 10^3/uL 0.26 Absolute Basophils (0.0-0.2) 10^3/uL 0.03 D-Dimer (<500) ng/mlFEU ABG Sample Site ABG pH (7.35-7.45) ABG pCO2 (35-45) mmHg ABG pO2 (80-105) mmHg ABG HCO3 (22-26) mmol/L ABG Total CO2 (23-27) mmol/L ABG O2 Saturation (95-98) % ABG Base Excess (-2-3) mmol/L VBG pH (7.31-7.41) VBG pCO2 (41-51) mmHg VBG pO2 mmHg VBG HCO3 (23-28) mmol/L VBG Total CO2 (24-29) mmol/L VBG O2 Saturation % VBG Base Excess (-2-3) mmol/L Oxygen Liter Flow L Sodium (136-145) mmol/L Cancelled 141 Potassium (3.5-5.1) mmol/L Cancelled 3.8 Chloride (98-107) mmol/L Cancelled 107 Carbon Dioxide (21.0-32.0) mmol/L Cancelled 30.3 Anion Gap (3-11) mmol/L Cancelled 3.7 BUN (7-18) mg/dL Cancelled 13 Creatinine (0.55-1.02) mg/dL Cancelled 0.6 Est GFR (CKD-EPI 2020) (mL/min/1.73m2) Cancelled 96.50 Glucose (74-106) mg/dL Cancelled 89 Calcium (8.5-10.1) mg/dL Cancelled 8.6 Magnesium (1.8-2.4) mg/dL Cancelled 2.1 Total Bilirubin (0.2-1.0) mg/dL AST (15-37) U/L ALT (14-59) U/L Alkaline Phosphatase (46-116) U/L Troponin I (<or=60) ng/L C-Reactive Protein (0.0-0.3) mg/dL NT-Pro-B Natriuret Pep (<300) pg/mL Total Protein (6.4-8.2) g/dL Albumin (3.4-5.0) g/dL Procalcitonin ng/mL COVID-19 Source SARS-CoV-2 (PCR) (Negative) Influenza Type A (PCR) (Negative) Influenza Type B (PCR) (Negative) RSV (PCR) (Negative) Add-On Test Request
[2022-09-20] MEDS: AZITHROMYCIN 250 MG in Normal Saline 250 ML IVPB (10:10)
--- NOTE | 2022-09-20 12:44 | NUR.NOTE ---
Nursing Note: At approximately 1245 on 09/20/22, this RN returned a call from Krista (pt.'s daughter - on HIPAA). Pt.'s daughter was updated regarding pt.'s mentation, respiratory status, plan of care, etc. Pt.'s daughter asking what the discharge plan is. RN informed pt.'s daughter that the discharge plan is unclear at this time. Pt.'s daughter then mentioned that the pt. lives with her (the pt.'s) sister and that the pt.'s sister currently has a terrible cold. Pt.'s daughter states that she would be worried about sending her back to the pt.'s sister's house. Pt.'s daughter then stated that the pt. sometimes lives with the pt.'s sister and sometimes lives with the pt.'s daughter. Pt.'s daughter then stated that she has a flight of stairs to get in to her home though and that it is difficult for the pt. when she is there. Pt.'s daughter then stated that if the pt. was going to be discharged on hospice that she would like the pt. to be closer to her (in the [place] area), as there is more family in the area. RN asked the pt.'s daughter if they could discuss these psychosocial issues with the customer care representative and have the customer care representative work on these discharge planning issues. Pt.'s daughter gave her permission. RN then asked the pt.'s daughter if there were any other concerns/questions and pt.'s daughter denied any at this time. Call then ended.
--- NOTE | 2022-09-20 13:18 | W.PM.PROGNOT ---
Date of Service Date of service: 09/20/22 Time of Service: 13:18 Assessment and Plan Assessment and plan (1) COPD exacerbation: Status: Acute Assessment and plan: Chronic end stage COPD; Acute exacerbationl possible pneumonia IV steroids, oxygen, nebulizers, VBG pending; abx Cefepime and Azithromycin IV Takes Prednisone daily Pulmonology consult Morphine PRN changed to oral (2) Anxiety disorder, unspecified: Status: Chronic Assessment and plan: Chronic - Continue Trazadone 150 mg HS Lorazepam PRN (3) Depression, unspecified: Status: Chronic Assessment and plan: Chronic; continue home meds Sertraline 75 mg daily (4) Oxygen dependent: Status: Acute Assessment and plan: Chronic home O2; adjust O2 as needed - does not want to be intubated, reviewed and confirmed, also DNR, OK for BiPap or high flow O2 as needed. (5) DVT prophylaxis: Status: Acute Assessment and plan: Enoxaparin 40 mg daily (6) Discharge planning issues: Status: Acute Assessment and plan: Home when stable Out pt Pulmonology referral discussed with Dr Alexis Subjective Subjective Patient reports: no new complaints and afebrile Interval history since last seen: No new concerns, she has not been hypoxic; seen by pulmonary today see their note Exam Const General: anxious, frail appearing and ill appearing Orientation: alert, awake and oriented x3 HENMT Head: normal to inspection Ears: external ears normal General nose exam: external nose normal Mouth: moist mucous membranes Eyes General: appearance normal, both eyes and all related structures Neck Neck: normal visual inspection Chest Chest: normal inspection of the chest Resp Auscultation: wheezes expiratory wheezes, inspiratory wheezes and scattered wheezes Cardio Jugular venous pressure: no JVD Rate: regular rate Heart Sounds: no murmurs GI Inspection: normal to inspection Auscultation: normal bowel sounds Back/Spine/Pelvis Back: no CVA tenderness Skin General skin exam: no rashes or lesions noted Neuro General: patient alert, patient awake, patient oriented x3 and moves all extremities Extrem General: normal to inspection, full ROM and capillary refill normal Psych Mental Status: mental status grossly normal Objective Last Vital Signs Temp 36.5 C 09/20/22 07:47 Pulse 99 H 09/20/22 12:58 Resp 20 09/20/22 12:58 BP 120/73 09/20/22 07:47 Pulse Ox 97 09/20/22 12:58 Laboratory Results - last 24 hr 09/20/22 09/20/22 09/20/22 06:04 06:04 07:42 WBC 7.48 RBC 4.87 Hgb 14.1 Hct 43.4 MCV 89 MCH 29.0 MCHC 32.5 RDW 13.9 Plt Count 168 MPV Immature Gran % 1.5 Neutrophils % 59.2 Lymphocytes % 26.3 Monocytes % 9.1 Eosinophils % 3.5 Basophils % 0.4 Nucleated RBC % 0.0 Absolute Neutrophils 4.43 Absolute Lymphocytes 1.97 Absolute Monocytes 0.68 Absolute Eosinophils 0.26 Absolute Basophils 0.03 Sodium Cancelled 141 Potassium Cancelled 3.8 Chloride Cancelled 107 Carbon Dioxide Cancelled 30.3 Anion Gap Cancelled 3.7 BUN Cancelled 13 Creatinine Cancelled 0.6 Est GFR (CKD-EPI 2020) Cancelled 96.50 Glucose Cancelled 89 Calcium Cancelled 8.6 Magnesium Cancelled 2.1 Time Spent with Patient Time Spent with Patient: 25-34 minutes Time was spent: preparing to see the patient(eg.review tests), obtaining and/or reviewing separately otained hiistory, ordering medications,tests, procedures, referring, communicating with other health critical care physician, indepentently interpreting results, counseling the patient and care coordination
--- NOTE | 2022-09-20 16:03 | CMPROGNOTE_ITS ---
- If Service Date Differs Date of service: 09/20/22 Time of Service: 16:03 Care Management Progress Note S/O: Per provider, Carina's condition is improving and her respiratory status is back to baseline. She met with Dr. Franco today and is agreeable to participate in a [place] Trial. CM spoke with patients daughter Krista via phone and Carina may stay with her for a couple of weeks after discharge because Carina's roommate/sister is also sick. Krista notes that she has a flight of stairs to go up. A PT consult is ordered. Carina would also need a provider to follow home health orders in [place]. Carina met with Palliative care yesterday and completed a new COLST. Palliative care will follow her during this admission, although her living in [place] could present a barrier to her outpatient, as she would have to travel to [facility] for appointments. CM will continue to follow. A: Carina is a 72 year old female admitted to [facility] on 09/17/22 with community acquired pneumonia, COPD exacerbation. P: Anticipate Carina will return home once medically cleared. Her daughter will drive her home via private vehicle. She will follow up with her PCP and discharge plan of care. CM will continue to follow.
--- NOTE | 2022-09-20 16:03 | CHAPLAIN ---
I had a brief visit with Carina. She was resting in bed and seemed tired. I explained my role and offered support. According to Palliative Care notes, Carina completed and COLST form and will go home with her daughter and eventually move back to her sister's house.
[2022-09-20] MEDS: Docusate Sodium 100 MG/10 ML CUP PO (19:42)
[2022-09-20] MEDS: Furosemide 40 MG/4 ML VIAL IVP (19:43)
[2022-09-20] MEDS: Polyethylene Glycol 3350 17 GM PACKET PO (19:43)
[2022-09-20] MEDS: traZODone 100 MG TAB 150 MG PO (21:11)
[2022-09-21] VITALS (14 sets, daily range): BP systolic 106–117; BP diastolic 64–73; PULSE 79–117; RESP 4–24; TEMP 36.2–37.6; O2SAT 87–97
[2022-09-21] MEDS: Albuterol 2.5 MG/3 ML INH SOLN VIAL IH (06:46)
[2022-09-21 07:11] LABS: Abs Immature Grans 0.31 10^3/uL (0.0-0.06); Absolute Basophil Count 0.08 10^3/uL (0.0-0.2); Absolute Eosinophil Count 0.36 10^3/uL (0.0-0.7); Absolute Lymphocyte Count 2.65 10^3/uL (1.2-3.4); Absolute Monocyte Count 0.85 10^3/uL (0.1-0.8); Absolute Neutrophil Count 6.26 10^3/uL (1.2-6.7); Basophils % 0.8; Eosinophils % 3.4; HCT 47.2 % (36.0-46.0); HGB 15.2 g/dL (11.2-15.7); Immature Grans % 2.9; Lymphocytes % 25.2; MCH 28.3 pg (27.0-33.0); MCHC 32.2 % (32.0-36.0); MCV 88 fL (80-95); MPV 8.9 fL (8.0-11.0); Monocytes % 8.1; Neutrophils % 59.6; Platelet Count 249 10^3/uL (130-400); RBC 5.37 10^6/uL (3.93-5.22); RDW 13.4 % (11.7-14.6); RDW-SD 43.5 fL; WBC 10.51 10^3/uL (4.4-10.8)
--- NOTE | 2022-09-21 07:15 | PGE_ITS ---
Assessment and Plan Assessment and plan (1) Anxiety with depression: Status: Acute (2) Respiratory failure with hypoxia: Status: Acute (3) Pneumonia: Status: Acute Assessment and plan: This is a 72 year old female admitted for COPD exacerbation after being sent to the ED from first office appointment. She continues to improve. She is also back onto normal nasal cannula. She is someone who frequently exacerbates and has had multiple hospitalizations. I do think she would benefit from either roflumilast or chronic azithromycin. She is open to participating in the RELIANCE trial, so have referred her and we will randomize her to one group and handle one of these prescriptions as an outpatient. COPD Exacerbation - continue Symbicort 80 - continue Spiriva respimat - discharge on inhalers above - Continue prednisone 40mg daily with a taper upon D/C: - 40mg for 5 days, 30mg for 3 days, 20mg for 3 days, 10mg for 3 days, 5mg for 3 days - Duonebs QID - prn albuterol - Continue prn ativan/morphine for air hunger or increased WOB. - consider transitioning to PO morphine before discharge to send home with for air hunger - recommend PT consultation and ambulation - referred to RELIANCE trial Pneumonia - continue ceftriaxone and azithromycin - total 5 days of antibiotics, can be discharged on just azithromycin - Acapella and IS Hypoxic respiratory failure - 3-4 LPM O2 at baseline - on NC now - not a CO2 retainer General Date Of Service Date of service: 09/21/22 Time of Service: 07:15 Reason for Consult: COPD Exacerbation Subjective 24 Hour Events: She has been weaned to her home O2 settings Note Note: She is feeling well today. She states that no one has come by to work with her on walking yet. She is not sure how her breathing will go with doing that. Exam Narrative Exam Narrative: Gen: NAD, normal respiratory effort, well-nourished HENT: PERRL Chest: No respiratory distress, normal appearance of chest, clear to auscultation bilaterally, no crackles or wheezes, normal inspiratory effort Heart: regular rate and rhythym, no murmurs, rubs or gallops Abdomen: Non-distended, soft, non tender Extremities: No clubbing, edema, cyanosis, rashes Neuro: AAOx3 , non focal Psych: cooperative, appropriate mental affect Objective Last Vital Signs Temp 36.5 C 09/20/22 23:22 Pulse 101 H 09/20/22 23:22 Resp 18 09/20/22 23:22 BP 96/58 L 09/20/22 23:22 Pulse Ox 93 09/20/22 23:22 Laboratory Results - last 24 hr 09/20/22 09/20/22 09/20/22 06:04 06:04 07:42 WBC 7.48 RBC 4.87 Hgb 14.1 Hct 43.4 MCV 89 MCH 29.0 MCHC 32.5 RDW 13.9 Plt Count 168 MPV Immature Gran % 1.5 Neutrophils % 59.2 Lymphocytes % 26.3 Monocytes % 9.1 Eosinophils % 3.5 Basophils % 0.4 Nucleated RBC % 0.0 Absolute Neutrophils 4.43 Absolute Lymphocytes 1.97 Absolute Monocytes 0.68 Absolute Eosinophils 0.26 Absolute Basophils 0.03 Sodium Cancelled 141 Potassium Cancelled 3.8 Chloride Cancelled 107 Carbon Dioxide Cancelled 30.3 Anion Gap Cancelled 3.7 BUN Cancelled 13 Creatinine Cancelled 0.6 Est GFR (CKD-EPI 2020) Cancelled 96.50 Glucose Cancelled 89 Calcium Cancelled 8.6 Magnesium Cancelled 2.1 Results Medications Medications: Active Medications Generic Name Dose Route Start Last Admin Trade Name Freq PRN Reason Stop Dose Admin Al Hydrox/Mg Hydrox/Simethicone 30 ml 09/18/22 09:48 Mylanta Suspension 30 Ml Cup PO QID PRN PRN Albuterol Sulfate 2.5 mg 09/17/22 19:54 09/21/22 06:46 Albuterol 2.5 Mg/3 Ml Inh Soln Vial IH 2.5 mg Q1H PRN PRN Administration Albuterol/Ipratropium 3 ml 09/18/22 08:30 09/20/22 19:29 Albuterol/Ipratropium 3 Ml Upd Vial UPD 3 ml QID ALIYAH Administration Bisacodyl 10 mg 09/20/22 16:57 Bisacodyl 10 Mg Supp ME DAILY PRN PRN Budesonide/Formoterol Fumarate 2 puff 09/18/22 20:00 09/20/22 19:28 Budesonide/Formoterol 80/4.5 6.9 Gm 60 Puff Inh IH 2 puffs BID [facility] Administration Device 1 each 09/17/22 23:00 Inhaler, Assist Device MC DIRECTED ALIYAH Docusate Sodium 100 mg 09/20/22 20:00 09/20/22 19:42 Docusate Sodium 100 Mg/10 Ml Cup PO 100 mg BID ALIYAH Administration Enoxaparin Sodium 40 mg 09/18/22 08:30 09/20/22 08:53 Enoxaparin 40 Mg/0.4 Ml Syr SC 40 mg DAILY ALIYAH Administration Guaifenesin 1,200 mg 09/17/22 20:00 09/20/22 19:43 Guaifenesin 600 Mg Tabcr PO 1,200 mg BID ALIYAH Administration Sodium Chloride 500 mls @ 0 mls/hr 09/17/22 15:00 09/20/22 11:40 Saline 500ml Bag IV 0 mls/hr PRN PRN Infusion As Directed Ceftriaxone Sodium/Dextrose 1 gm in 50 mls @ 100 mls/hr 09/18/22 08:00 09/20/22 09:22 Rocephin IVPB Infused Q24H ALIYAH Infusion Azithromycin 250 mg/ Sodium 250 mls @ 250 mls/hr 09/18/22 10:00 09/20/22 11:10 Chloride IVPB Infused Q24H ALIYAH Infusion IV Miscellaneous Supplies 1 each 09/17/22 15:00 Iv Access IV DIRECTED ALIYAH Lorazepam 0.5 mg 09/17/22 21:07 09/20/22 17:44 Lorazepam 0.5 Mg Tab PO 0.5 mg TID PRN PRN Administration Montelukast Sodium 10 mg 09/18/22 08:30 09/20/22 08:53 Montelukast 10 Mg Tab PO 10 mg DAILY ALIYAH Administration Morphine Sulfate 10 mg 09/20/22 19:38 Morphine 10 Mg/5ml Soln. 5ml Cup PO Q3H PRN PRN Polyethylene Glycol 17 gm 09/20/22 20:00 09/20/22 19:43 Polyethylene Glycol 3350 17 Gm Packet PO 17 gm BID ALIYAH Administration Prednisone 40 mg 09/18/22 08:30 09/20/22 08:53 Prednisone 20 Mg Tab PO 40 mg DAILY ALIYAH Administration Sertraline HCl 100 mg 09/20/22 08:30 09/20/22 08:53 Sertraline 100 Mg Tab PO 100 mg DAILY ALIYAH Administration Sodium Chloride 0 ml 09/17/22 15:00 09/20/22 19:43 Normal Saline Flush 10 Ml Syr IVP 10 ml PRN PRN Administration Tiotropium [place] 2 puff 09/19/22 08:30 09/20/22 07:35 Tiotropium [place]-Respimat 10 Puff Inh IH 2 puffs DAILY ALIYAH Administration Trazodone HCl 150 mg 09/17/22 19:08 09/20/22 21:11 Trazodone 100 Mg Tab PO 150 mg HS PRN PRN Administration Allergies escitalopram [From Lexapro] Allergy (Unknown, Verified 09/17/22 14:53) Nausea Labs 09/20/22 06:04 09/20/22 07:42 Labs: 09/17/22 15:50 Blood Blood Culture - Preliminary NO GROWTH 72 HOURS 09/17/22 15:50 Blood Blood Culture - Preliminary NO GROWTH 72 HOURS Laboratory Tests Range/Units 09/17/22 09/17/22 09/17/22 14:55 14:55 14:55 WBC (4.4-10.8) 10^3/uL 13.19 H RBC (3.93-5.22) 10^6/uL 5.28 H Hgb (11.2-15.7) g/dL 15.0 Hct (36.0-46.0) % 47.5 H MCV (80-95) fL 90 MCH (27.0-33.0) pg 28.4 MCHC (32.0-36.0) % 31.6 L RDW (11.7-14.6) % 13.8 Plt Count (130-400) 10^3/uL 236 MPV (8.0-11.0) fL 8.9 Immature Gran % 0.7 Neutrophils % 86.3 Lymphocytes % 6.4 Monocytes % 6.2 Eosinophils % 0.2 Basophils % 0.2 Nucleated RBC % (0.0-0.3) % 0.0 Absolute Neutrophils (1.2-6.7) 10^3/uL 11.38 H Absolute Lymphocytes (1.2-3.4) 10^3/uL 0.84 L Absolute Monocytes (0.1-0.8) 10^3/uL 0.82 H Absolute Eosinophils (0.0-0.7) 10^3/uL 0.03 Absolute Basophils (0.0-0.2) 10^3/uL 0.03 D-Dimer (<500) ng/mlFEU ABG Sample Site ABG pH (7.35-7.45) ABG pCO2 (35-45) mmHg ABG pO2 (80-105) mmHg ABG HCO3 (22-26) mmol/L ABG Total CO2 (23-27) mmol/L ABG O2 Saturation (95-98) % ABG Base Excess (-2-3) mmol/L VBG pH (7.31-7.41) VBG pCO2 (41-51) mmHg VBG pO2 mmHg VBG HCO3 (23-28) mmol/L VBG Total CO2 (24-29) mmol/L VBG O2 Saturation % VBG Base Excess (-2-3) mmol/L Oxygen Liter Flow L Sodium (136-145) mmol/L 141 Potassium (3.5-5.1) mmol/L 4.2 Chloride (98-107) mmol/L 105 Carbon Dioxide (21.0-32.0) mmol/L 29.0 Anion Gap (3-11) mmol/L 7.0 BUN (7-18) mg/dL 14 Creatinine (0.55-1.02) mg/dL 0.8 Est GFR (CKD-EPI 2020) (mL/min/1.73m2) 79.22 Glucose (74-106) mg/dL 160 H Calcium (8.5-10.1) mg/dL 9.4 Magnesium (1.8-2.4) mg/dL 2.3 Total Bilirubin (0.2-1.0) mg/dL 0.4 AST (15-37) U/L 13 L ALT (14-59) U/L 23 Alkaline Phosphatase (46-116) U/L 93 Troponin I (<or=60) ng/L < 50 C-Reactive Protein (0.0-0.3) mg/dL NT-Pro-B Natriuret Pep (<300) pg/mL 103 Total Protein (6.4-8.2) g/dL 7.2 Albumin (3.4-5.0) g/dL 3.6 Procalcitonin ng/mL < 0.1 COVID-19 Source SARS-CoV-2 (PCR) (Negative) Influenza Type A (PCR) (Negative) Influenza Type B (PCR) (Negative) RSV (PCR) (Negative) Add-On Test Request Range/Units 09/17/22 09/17/22 09/17/22 14:55 15:10 15:30 WBC (4.4-10.8) 10^3/uL RBC (3.93-5.22) 10^6/uL Hgb (11.2-15.7) g/dL Hct (36.0-46.0) % MCV (80-95) fL MCH (27.0-33.0) pg MCHC (32.0-36.0) % RDW (11.7-14.6) % Plt Count (130-400) 10^3/uL MPV (8.0-11.0) fL Immature Gran % Neutrophils % Lymphocytes % Monocytes % Eosinophils % Basophils % Nucleated RBC % (0.0-0.3) % Absolute Neutrophils (1.2-6.7) 10^3/uL Absolute Lymphocytes (1.2-3.4) 10^3/uL Absolute Monocytes (0.1-0.8) 10^3/uL Absolute Eosinophils (0.0-0.7) 10^3/uL Absolute Basophils (0.0-0.2) 10^3/uL D-Dimer (<500) ng/mlFEU ABG Sample Site Right Radial ABG pH (7.35-7.45) 7.43 ABG pCO2 (35-45) mmHg 42 ABG pO2 (80-105) mmHg 95 ABG HCO3 (22-26) mmol/L 28 H ABG Total CO2 (23-27) mmol/L 24 ABG O2 Saturation (95-98) % 98 ABG Base Excess (-2-3) mmol/L 3 VBG pH (7.31-7.41) 7.37 VBG pCO2 (41-51) mmHg 51 VBG pO2 mmHg 49 VBG HCO3 (23-28) mmol/L 29 H VBG Total CO2 (24-29) mmol/L 26 VBG O2 Saturation % 85 VBG Base Excess (-2-3) mmol/L 4 H Oxygen Liter Flow L 3 Sodium (136-145) mmol/L Potassium (3.5-5.1) mmol/L Chloride (98-107) mmol/L Carbon Dioxide (21.0-32.0) mmol/L Anion Gap (3-11) mmol/L BUN (7-18) mg/dL Creatinine (0.55-1.02) mg/dL Est GFR (CKD-EPI 2020) (mL/min/1.73m2) Glucose (74-106) mg/dL Calcium (8.5-10.1) mg/dL Magnesium (1.8-2.4) mg/dL Total Bilirubin (0.2-1.0) mg/dL AST (15-37) U/L ALT (14-59) U/L Alkaline Phosphatase (46-116) U/L Troponin I (<or=60) ng/L C-Reactive Protein (0.0-0.3) mg/dL NT-Pro-B Natriuret Pep (<300) pg/mL Total Protein (6.4-8.2) g/dL Albumin (3.4-5.0) g/dL Procalcitonin ng/mL COVID-19 Source Nasopharynx SARS-CoV-2 (PCR) (Negative) Negative Influenza Type A (PCR) (Negative) Negative Influenza Type B (PCR) (Negative) Negative RSV (PCR) (Negative) Negative Add-On Test Request Range/Units 09/17/22 09/17/22 09/18/22 19:35 19:35 06:20 WBC (4.4-10.8) 10^3/uL RBC (3.93-5.22) 10^6/uL Hgb (11.2-15.7) g/dL Hct (36.0-46.0) % MCV (80-95) fL MCH (27.0-33.0) pg MCHC (32.0-36.0) % RDW (11.7-14.6) % Plt Count (130-400) 10^3/uL MPV (8.0-11.0) fL Immature Gran % Neutrophils % Lymphocytes % Monocytes % Eosinophils % Basophils % Nucleated RBC % (0.0-0.3) % Absolute Neutrophils (1.2-6.7) 10^3/uL Absolute Lymphocytes (1.2-3.4) 10^3/uL Absolute Monocytes (0.1-0.8) 10^3/uL Absolute Eosinophils (0.0-0.7) 10^3/uL Absolute Basophils (0.0-0.2) 10^3/uL D-Dimer (<500) ng/mlFEU ABG Sample Site ABG pH (7.35-7.45) ABG pCO2 (35-45) mmHg ABG pO2 (80-105) mmHg ABG HCO3 (22-26) mmol/L ABG Total CO2 (23-27) mmol/L ABG O2 Saturation (95-98) % ABG Base Excess (-2-3) mmol/L VBG pH (7.31-7.41) 7.41 VBG pCO2 (41-51) mmHg 43 VBG pO2 mmHg 186 VBG HCO3 (23-28) mmol/L 27 VBG Total CO2 (24-29) mmol/L Not Applicable VBG O2 Saturation % > 99 VBG Base Excess (-2-3) mmol/L 3 Oxygen Liter Flow L Sodium (136-145) mmol/L 143 Potassium (3.5-5.1) mmol/L 4.6 Chloride (98-107) mmol/L 109 H Carbon Dioxide (21.0-32.0) mmol/L 28.8 Anion Gap (3-11) mmol/L 5.2 BUN (7-18) mg/dL 16 Creatinine (0.55-1.02) mg/dL 0.8 Est GFR (CKD-EPI 2020) (mL/min/1.73m2) 79.22 Glucose (74-106) mg/dL 144 H Calcium (8.5-10.1) mg/dL 8.5 Magnesium (1.8-2.4) mg/dL 2.5 H Total Bilirubin (0.2-1.0) mg/dL AST (15-37) U/L ALT (14-59) U/L Alkaline Phosphatase (46-116) U/L Troponin I (<or=60) ng/L < 50 C-Reactive Protein (0.0-0.3) mg/dL 1.38 H NT-Pro-B Natriuret Pep (<300) pg/mL Total Protein (6.4-8.2) g/dL Albumin (3.4-5.0) g/dL Procalcitonin ng/mL COVID-19 Source SARS-CoV-2 (PCR) (Negative) Influenza Type A (PCR) (Negative) Influenza Type B (PCR) (Negative) RSV (PCR) (Negative) Add-On Test Request Range/Units 09/18/22 09/18/22 09/18/22 06:20 07:37 07:55 WBC (4.4-10.8) 10^3/uL 8.25 RBC (3.93-5.22) 10^6/uL 4.61 Hgb (11.2-15.7) g/dL 13.3 Hct (36.0-46.0) % 41.3 MCV (80-95) fL 90 MCH (27.0-33.0) pg 28.9 MCHC (32.0-36.0) % 32.2 RDW (11.7-14.6) % 13.9 Plt Count (130-400) 10^3/uL 209 MPV (8.0-11.0) fL 9.2 Immature Gran % 0.7 Neutrophils % 86.9 Lymphocytes % 7.6 Monocytes % 4.7 Eosinophils % 0.0 Basophils % 0.1 Nucleated RBC % (0.0-0.3) % 0.0 Absolute Neutrophils (1.2-6.7) 10^3/uL 7.16 H Absolute Lymphocytes (1.2-3.4) 10^3/uL 0.63 L Absolute Monocytes (0.1-0.8) 10^3/uL 0.39 Absolute Eosinophils (0.0-0.7) 10^3/uL 0.00 Absolute Basophils (0.0-0.2) 10^3/uL 0.01 D-Dimer (<500) ng/mlFEU 1130 H ABG Sample Site ABG pH (7.35-7.45) ABG pCO2 (35-45) mmHg ABG pO2 (80-105) mmHg ABG HCO3 (22-26) mmol/L ABG Total CO2 (23-27) mmol/L ABG O2 Saturation (95-98) % ABG Base Excess (-2-3) mmol/L VBG pH (7.31-7.41) VBG pCO2 (41-51) mmHg VBG pO2 mmHg VBG HCO3 (23-28) mmol/L VBG Total CO2 (24-29) mmol/L VBG O2 Saturation % VBG Base Excess (-2-3) mmol/L Oxygen Liter Flow L Sodium (136-145) mmol/L Potassium (3.5-5.1) mmol/L Chloride (98-107) mmol/L Carbon Dioxide (21.0-32.0) mmol/L Anion Gap (3-11) mmol/L BUN (7-18) mg/dL Creatinine (0.55-1.02) mg/dL Est GFR (CKD-EPI 2020) (mL/min/1.73m2) Glucose (74-106) mg/dL Calcium (8.5-10.1) mg/dL Magnesium (1.8-2.4) mg/dL Total Bilirubin (0.2-1.0) mg/dL AST (15-37) U/L ALT (14-59) U/L Alkaline Phosphatase (46-116) U/L Troponin I (<or=60) ng/L C-Reactive Protein (0.0-0.3) mg/dL NT-Pro-B Natriuret Pep (<300) pg/mL Total Protein (6.4-8.2) g/dL Albumin (3.4-5.0) g/dL Procalcitonin ng/mL COVID-19 Source SARS-CoV-2 (PCR) (Negative) Influenza Type A (PCR) (Negative) Influenza Type B (PCR) (Negative) RSV (PCR) (Negative) Add-On Test Request DONE Range/Units 09/20/22 09/20/22 09/20/22 06:04 06:04 07:42 WBC (4.4-10.8) 10^3/uL 7.48 RBC (3.93-5.22) 10^6/uL 4.87 Hgb (11.2-15.7) g/dL 14.1 Hct (36.0-46.0) % 43.4 MCV (80-95) fL 89 MCH (27.0-33.0) pg 29.0 MCHC (32.0-36.0) % 32.5 RDW (11.7-14.6) % 13.9 Plt Count (130-400) 10^3/uL 168 MPV (8.0-11.0) fL Immature Gran % 1.5 Neutrophils % 59.2 Lymphocytes % 26.3 Monocytes % 9.1 Eosinophils % 3.5 Basophils % 0.4 Nucleated RBC % (0.0-0.3) % 0.0 Absolute Neutrophils (1.2-6.7) 10^3/uL 4.43 Absolute Lymphocytes (1.2-3.4) 10^3/uL 1.97 Absolute Monocytes (0.1-0.8) 10^3/uL 0.68 Absolute Eosinophils (0.0-0.7) 10^3/uL 0.26 Absolute Basophils (0.0-0.2) 10^3/uL 0.03 D-Dimer (<500) ng/mlFEU ABG Sample Site ABG pH (7.35-7.45) ABG pCO2 (35-45) mmHg ABG pO2 (80-105) mmHg ABG HCO3 (22-26) mmol/L ABG Total CO2 (23-27) mmol/L ABG O2 Saturation (95-98) % ABG Base Excess (-2-3) mmol/L VBG pH (7.31-7.41) VBG pCO2 (41-51) mmHg VBG pO2 mmHg VBG HCO3 (23-28) mmol/L VBG Total CO2 (24-29) mmol/L VBG O2 Saturation % VBG Base Excess (-2-3) mmol/L Oxygen Liter Flow L Sodium (136-145) mmol/L Cancelled 141 Potassium (3.5-5.1) mmol/L Cancelled 3.8 Chloride (98-107) mmol/L Cancelled 107 Carbon Dioxide (21.0-32.0) mmol/L Cancelled 30.3 Anion Gap (3-11) mmol/L Cancelled 3.7 BUN (7-18) mg/dL Cancelled 13 Creatinine (0.55-1.02) mg/dL Cancelled 0.6 Est GFR (CKD-EPI 2020) (mL/min/1.73m2) Cancelled 96.50 Glucose (74-106) mg/dL Cancelled 89 Calcium (8.5-10.1) mg/dL Cancelled 8.6 Magnesium (1.8-2.4) mg/dL Cancelled 2.1 Total Bilirubin (0.2-1.0) mg/dL AST (15-37) U/L ALT (14-59) U/L Alkaline Phosphatase (46-116) U/L Troponin I (<or=60) ng/L C-Reactive Protein (0.0-0.3) mg/dL NT-Pro-B Natriuret Pep (<300) pg/mL Total Protein (6.4-8.2) g/dL Albumin (3.4-5.0) g/dL Procalcitonin ng/mL COVID-19 Source SARS-CoV-2 (PCR) (Negative) Influenza Type A (PCR) (Negative) Influenza Type B (PCR) (Negative) RSV (PCR) (Negative) Add-On Test Request
[2022-09-21 07:23] LABS: Anion Gap 4.9 mmol/L (3-11); BUN 16 mg/dL (7-18); CO2 32.1 mmol/L (21.0-32.0); CREATININE 0.8 mg/dL (0.55-1.02); Calcium 9.2 mg/dL (8.5-10.1); Chloride 100 mmol/L (98-107); Estimated GFR 79.22 (mL/min/1.73m2); Glucose 87 mg/dL (74-106); Magnesium 2.2 mg/dL (1.8-2.4); Potassium 3.5 mmol/L (3.5-5.1); Sodium 137 mmol/L (136-145)
[2022-09-21] MEDS: Albuterol/Ipratropium 3 ML UPD VIAL UPD ×4 (08:24→19:37)
[2022-09-21] MEDS: Tiotropium Bromide-Respimat 10 PUFF INH 2 PUFF IH (08:26)
[2022-09-21] MEDS: Budesonide/Formoterol 80/4.5 6.9 GM 60 PUFF INH IH ×2 (08:26→19:35)
[2022-09-21] MEDS: Enoxaparin 40 MG/0.4 ML SYR SC (08:41)
[2022-09-21] MEDS: Normal Saline Flush 10 ML SYR IVP (08:41)
[2022-09-21] MEDS: Polyethylene Glycol 3350 17 GM PACKET PO ×2 (08:41→19:27)
[2022-09-21] MEDS: guaiFENesin 600 MG TABCR 1200 MG PO ×2 (08:42→19:27)
[2022-09-21] MEDS: Montelukast 10 MG TAB PO (08:42)
[2022-09-21] MEDS: Docusate Sodium 100 MG/10 ML CUP PO ×2 (08:42→19:27)
[2022-09-21] MEDS: cefTRIAXone 1 GM/50 ML BAG IVPB (08:42)
[2022-09-21] MEDS: Sertraline 100 MG TAB PO (08:42)
[2022-09-21] MEDS: predniSONE 20 MG TAB 40 MG PO (08:42)
--- NOTE | 2022-09-21 09:24 | PDOC.CMPRO ---
- If Service Date Differs Date of service: 09/21/22 Time of Service: 09:24 Care Management Progress Note S/O: Carina was sitting up in bed when CM met with her. She stated that she is still very short of breath, especially with ambulation. PT met with her and recommended that she go to SNF for short term rehab, as her mobility is limited by her breathing. CM discussed this with Carina and her daughter, Krista. CM sent referrals to [facility] and [facility], at their request. She has been offered a bed at [facility] for Saturday. [facility] is reviewing the referral. CM will continue to follow. A: Carina is a 72 year old female admitted to [facility] on 09/17/22 with community acquired pneumonia, COPD exacerbation. P: Anticipate Carina will return home once medically cleared. Her daughter will drive her home via private vehicle. She will follow up with her PCP and discharge plan of care. CM will continue to follow.
--- NOTE | 2022-09-21 09:57 | PT.INIE ---
Date of service: 09/21/22 Time of Service: 09:27 PT Notes Visit Reasons: Community Acquired Pneumonia,Exacerbation of COPD Physical Therapy Inpatient Initial Evaluation Date: 09/21/2022 Referring Doctor: Carina Graham NP PT Orders: PT CONSULT: Eval/Treat Precautions: Fall. Standard. Activity as tolerated. Patient Profile/Admitting Diagnosis: Patient is a 72-year-old female who presented to the ED on 09/17/2022 due to slowly worsening shortness of breath. Patient is diagnosed with COPD exacerbation, anxiety, depression, oxygen dependence, respiratory failure with hypoxia, and pneumonia. PMHX: All Active Problems?(Updated 09/17/22 @ 22:38 by Carina Graham NP) Discharge planning issues (Acute) DVT prophylaxis (Acute) COPD exacerbation (Acute) Anxiety disorder, unspecified (Chronic) Depression, unspecified (Chronic) Oxygen dependent (Acute) Diabetes (Chronic) COPD (chronic obstructive pulmonary disease) (Chronic) Medical History?(Updated 09/17/22 @ 22:38 by Carina Graham NP) Left breast lump Surgical History?(Updated 07/13/22 @ 13:42 by Erna Gan) Cataract Social History/Home Situation: Lives with sister in a private home prior to admission but patient is planning on going to daughter's house whenever safe to go home as sister is currently sick. Independent with all aspects of ADLs prior to surgery. Equipment Owned/DME: None Subjective: Does not feel safe moving alone as she did prior to admission. Agreeable to trying out short distance in room ambulation for this evaluation. Reports of moderate to severe breathlessness during ambulation activity even with the use of front wheeled walker. Needs at least 5 minutes of seated rest to recover. States that she has a flight of steps at her daughter's house entrance. Objective: General Observation: Seated at edge of bed SOB at rest. On oxygen supplementation via NC, 2 L/min. IV access in right UE. Mental Status: Alert and oriented as to person, place, time, and purpose. Requires effort to pay attention due to shortness of breath, focus, and respond appropriately. Pain: Denies Vital Signs: Oxygen desaturation to 85% on 2 L while seated at edge of bed required increase to 4 L with short distance ambulation ROM: Right Upper Extremity: Shoulder Flexion WFL. Shoulder abduction WFL. Elbow flexion WFL. Wrist flexion WFL. Functional opening and closing of hand WFL. Left Upper Extremity: Shoulder Flexion WFL. Shoulder abduction WFL. Elbow flexion WFL. Wrist flexion WFL. Functional opening and closing of hand WFL. Right Lower Extremity: Hip flexion WFL. Hip abduction WFL. Knee flexion WFL. Ankle dorsiflexion WFL. Ankle plantarflexion WFL. Left Lower Extremity: Hip flexion WFL. Hip abduction WFL. Knee flexion WFL. Ankle dorsiflexion WFL. Ankle plantarflexion WFL. Strength: Right Upper Extremity: Shoulder flexors 4-/5. Shoulder abductors 4-/5. Elbow flexors 4-/5. Elbow extensors 4-/5. Railroad Commissioner strong. Left Upper Extremity: Shoulder flexors 4-/5. Shoulder abductors 4-/5. Elbow flexors 4-/5. Elbow extensors 4-/5. Railroad Commissioner strong. Right Lower Extremity: Hip flexors 3+/5. Hip abductors 3+/5. Knee flexors 4-/5. Knee extensors 4-/5. Ankle dorsiflexors 4-/5. Ankle plantarflexors 4-/5. Left Lower Extremity: Hip flexors 3+/5. Hip abductors 3+/5. Knee flexors 4-/5. Knee extensors 4-/5. Ankle dorsiflexors 4-/5. Ankle plantarflexors 4-/5. Bed Mobility/Transfers: Sit to stand contact-guard assist Stand to sit contact-guard assist Bed to reclining chair minimal assist Gait: Instructed patient with level surface ambulation of 6-8 steps requiring minimal assist. Loni decreased. Step height decreased. Step length decreased. Required increase of oxygen supplementation to 4 L/min to maintain oxygen saturation to 90% to 93%. Moderately to severely short of breath. Needed at least 5 minutes to recover with oxygen saturation dipping down to 85% but going back up to WNL with seated rest. Patient reported fatigue and refused further activity. Agreeable to going for short-term rehab prior to going home to daughter's house to improve strength and activity tolerance. Balance: Static Sitting: Normal Dynamic Sitting: Normal Static Standing: Fair Dynamic Standing: Fair Special Tests: Mobility Limitations Standardized Measure [facility] 6 clicks Basic Mobility Inpatient Short Form: Raw Score: 16 CMS Score: 54% deficit Informed Consent/Education: Patient was instructed in purpose of PT consult and plan of care. Agreeable to proceed with established PT POC to achieve personal goals. Assessment: Patient presents with functional mobility decline requiring use of FWW and contact guard/minimal assist for all mobility ADL performance. Patient presents with clinical signs and symptoms consistent with current/admitting diagnoses that have resulted to mobility limitations, gait instability, generalized weakness, and overall ADL decline as demonstrated by the following impairment level findings: 1. Decreased strength to B UE/LE major muscle groups 2. Impaired standing balance 3. Impaired activity tolerance 4. Shortness of breath Impairments are contributing to the following functional limitations: 1. Difficulty with ambulation without assistive device and physical assistance 2. Increased completion time for mobility ADL performance 3. Increased risk for falls 4. Difficulty with managing steps alone safely Patient is assessed as a 09386 moderate complexity based on the following: History: 72-year-old female with past medical history as indicated above Examination: Demonstrable impairment in strength, balance, and mobility level with underlying impairments and functional limitations as exhibited above as well as deficit score of 54% utilizing the [facility] Mobility Inpatient Short Form Presentation: Evolving Decision Makin moderate complexity Goals: Goals X1 week 1. Supine-Sit independent 2. Sit-Supine independent 3. Sit-Stand independent 4. Stand-Sit independent with FWW 5. Bed-Chair independent with FWW 6. Chair-Bed independent with FWW 7. Independent gait on level surface with use of FWW for at least 200 feet without report of pain nor dyspnea 8. Independent stair negotiation while holding onto B rails for at least 12 steps without report of pain nor dyspnea 9. Independent with home exercise program 10. Good static and dynamic standing balance/tolerance Plan of Care/Treatment Plan: 1-2x/day, 7 days/week x 1 week. Plan of care has been reviewed with the CEMENT TESTER ASSISTANT providing the service under Physical Therapy direction. Initiate Physical Therapy intervention for pain management as needed, strengthening, bed mobility, transfers, gait, stairs, balance training, and use of assistive device. DISCHARGE RECOMMENDATIONS: [] Home with no services [] [] Home with services [specify] [] Home with outpatient PT [] [X] SNF for continued rehabilitation. Patient will benefit from group home facility placement for continued skilled physical therapy services in order to progress mobility level, strength, and balance in preparation for a safe discharge to home. [] [facility] [] [] SNF versus LTC based on ability to participate and progress [] TREATMENT CODE/TIME: 68876 x 26 minutes beginning at 9:27 AM. Thank you for the opportunity to participate in the care of this patient. Paz De La O PT, DPT, CLT [facility] [place], [place]
[2022-09-21] MEDS: Normal Saline 500 ML 100 ML IV (10:23)
[2022-09-21] MEDS: AZITHROMYCIN 250 MG in Normal Saline 250 ML IVPB (10:24)
--- NOTE | 2022-09-21 13:45 | RESPIRATORY ---
RT called the patient DME of [facility], [place] in regards to dropping off a tank to [facility] for patient to D/C home. Currently, patient uses C tanks with a conserving device and the tank will be delivered sometime today.
[2022-09-21 15:48] LABS: C-Reactive Protein 0.14 mg/dL (0.0-0.3)
--- NOTE | 2022-09-21 15:50 | PT.INTREAT ---
Date of service: 09/21/22 Time of Service: 15:15 PT Notes Visit Reasons: Community Acquired Pneumonia,Exacerbation of COPD Physical Therapy Inpatient Treatment Note Date: 09/21/2022 Precautions: Fall. Standard. Activity as tolerated. Subjective: Does not feel safe moving alone as she did prior to admission.? Agreeable to trying out short distance in room ambulation for this evaluation.? Reports of moderate to severe breathlessness during ambulation activity even with the use of front wheeled walker.? Needs at least 5 minutes of seated rest to recover. ? States that she has a flight of steps at her daughter's house entrance. Objective: General Observation: Seated at edge of bed SOB at rest.? On oxygen supplementation via NC, 2 L/min.? IV access in right UE.? Mental Status: Alert and oriented as to person, place, time, and purpose.? Requires effort to pay attention due to shortness of breath, focus, and respond appropriately. Pain: Denies Vital Signs: Oxygen desaturation to 85% on 2 L while seated at edge of bed required increase to 4 L with short distance ambulation Bed Mobility/Transfers: Sit to stand contact-guard assist Stand to sit contact-guard assist Bed to reclining chair minimal assist Gait: Instructed patient with level surface ambulation of 30 feet requiring minimal assist. Loni decreased. Step height decreased. Step length decreased.? Required increase of oxygen supplementation to 4 L/min to maintain oxygen saturation to 90% to 93%.? Moderately to severely short of breath.? Needed at least 5 minutes to recover with oxygen saturation dipping down to 85% but going back up to WNL with seated rest.? Patient reported fatigue and refused further activity.? Agreeable to going for short-term rehab prior to going home to daughter's house to improve strength and activity tolerance. Balance: Static Sitting: Normal Dynamic Sitting: Normal Static Standing: Fair Dynamic Standing: Fair THER EX: Chest expansion exercises with shoulder flexion/extension x 5 Chest expansion exercises with shoulder horizontal abduction/adduction x 5 LAQ x 5 Seated marches x 5 Assessment: Patient presents with functional mobility decline requiring use of FWW and contact guard/minimal assist for all mobility ADL performance.? Patient presents with clinical signs and symptoms consistent with current/admitting diagnoses that have resulted to mobility limitations, gait instability, generalized weakness, and overall ADL decline as demonstrated by the following impairment level findings: 1.? Decreased strength to B UE/LE major muscle groups 2.? Impaired standing balance 3.? Impaired activity tolerance 4.? Shortness of breath Impairments are contributing to the following functional limitations: 1.? Difficulty with ambulation without assistive device and physical assistance 2.? Increased completion time for mobility ADL performance 3.? Increased risk for falls 4.? Difficulty with managing steps alone safely DISCHARGE RECOMMENDATIONS: [] ? Home with no services [] [] ? Home with services [specify] [] ? Home with outpatient PT [] [X] ? SNF for continued rehabilitation.? Patient will benefit from [facility] facility placement for continued skilled physical therapy services in order to progress mobility level, strength, and balance in preparation for a safe discharge to home. [] ? [facility] [] [] ? SNF versus LTC based on ability to participate and progress [] TREATMENT CODE/TIME: 11991 x 31 minutes beginning at 9:27 AM.
--- NOTE | 2022-09-21 19:40 | PGE_ITS ---
Date of Service Date of service: 09/21/22 Time of Service: 15:00 Assessment and Plan Assessment and plan (1) COPD exacerbation: Status: Acute Assessment and plan: Chronic end stage COPD; Acute exacerbationl possible pneumonia Continue IV steroids, oxygen, nebulizers abx Cefepime and Azithromycin IV Takes Prednisone daily Pulmonology consult Morphine PRN changed to oral (2) Anxiety disorder, unspecified: Status: Chronic Assessment and plan: Chronic - Continue Trazadone 150 mg HS Lorazepam PRN (3) Depression, unspecified: Status: Chronic Assessment and plan: Chronic; continue home meds Sertraline 75 mg daily (4) Oxygen dependent: Status: Acute Assessment and plan: Chronic home O2; adjust O2 as needed - does not want to be intubated, reviewed and confirmed, also DNR, OK for BiPap or high flow O2 as needed. (5) DVT prophylaxis: Status: Acute Assessment and plan: Enoxaparin 40 mg daily (6) Discharge planning issues: Status: Acute Assessment and plan: Home v SNF Out pt Pulmonology referral discussed with Dr Bryson Subjective Subjective Patient reports: no new complaints, bowel movement, shortness of breath and afebrile; denies diarrhea, nausea or vomiting Exam Const General: anxious, frail appearing and ill appearing Orientation: alert, awake and oriented x3 HENMT Head: normal to inspection Ears: external ears normal General nose exam: external nose normal Mouth: moist mucous membranes Eyes General: appearance normal, both eyes and all related structures Neck Neck: normal visual inspection Chest Chest: normal inspection of the chest Resp Auscultation: wheezes expiratory wheezes and scattered wheezes Cardio Jugular venous pressure: no JVD Rate: regular rate Heart Sounds: no murmurs GI Inspection: normal to inspection Auscultation: normal bowel sounds Back/Spine/Pelvis Back: no CVA tenderness Skin General skin exam: no rashes or lesions noted Neuro General: patient alert, patient awake, patient oriented x3 and moves all extremities Extrem General: normal to inspection, full ROM and capillary refill normal Psych Mental Status: mental status grossly normal Objective Last Vital Signs Temp 37.6 C H 09/21/22 15:10 Pulse 90 09/21/22 19:37 Resp 20 09/21/22 19:37 BP 117/73 09/21/22 15:10 Pulse Ox 97 09/21/22 19:37 Laboratory Results - last 24 hr 09/21/22 09/21/22 06:15 06:15 WBC 10.51 RBC 5.37 H Hgb 15.2 Hct 47.2 H MCV 88 MCH 28.3 MCHC 32.2 RDW 13.4 Plt Count 249 MPV 8.9 Immature Gran % 2.9 Neutrophils % 59.6 Lymphocytes % 25.2 Monocytes % 8.1 Eosinophils % 3.4 Basophils % 0.8 Nucleated RBC % 0.0 Absolute Neutrophils 6.26 Absolute Lymphocytes 2.65 Absolute Monocytes 0.85 H Absolute Eosinophils 0.36 Absolute Basophils 0.08 Sodium 137 Potassium 3.5 Chloride 100 Carbon Dioxide 32.1 H Anion Gap 4.9 BUN 16 Creatinine 0.8 Est GFR (CKD-EPI 2020) 79.22 Glucose 87 Calcium 9.2 Magnesium 2.2 C-Reactive Protein 0.14 Time Spent with Patient Time Spent with Patient: 25-34 minutes Time was spent: preparing to see the patient(eg.review tests), ordering medications,tests, procedures, referring, communicating with other health dog day care attendant, indepentently interpreting results, counseling the patient and care coordination
[2022-09-21] MEDS: traZODone 100 MG TAB 150 MG PO (20:30)
[2022-09-22 07:17] VITALS: BP 109/64; PULSE 77; RESP 20; TEMP 36.7; O2SAT 92
[2022-09-22 07:26] LABS: Abs Immature Grans 0.39 10^3/uL (0.0-0.06); Absolute Basophil Count 0.09 10^3/uL (0.0-0.2); Absolute Eosinophil Count 0.37 10^3/uL (0.0-0.7); Absolute Lymphocyte Count 2.54 10^3/uL (1.2-3.4); Absolute Neutrophil Count 6.95 10^3/uL (1.2-6.7); Basophils % 0.8; Eosinophils % 3.3; HCT 51.1 % (36.0-46.0); HGB 16.2 g/dL (11.2-15.7); Immature Grans % 3.5; Lymphocytes % 22.8; MCHC 31.7 % (32.0-36.0); MCV 88 fL (80-95); MPV 8.9 fL (8.0-11.0); Monocytes % 7.2; Neutrophils % 62.4; Platelet Count 253 10^3/uL (130-400); RBC 5.78 10^6/uL (3.93-5.22); RDW 13.6 % (11.7-14.6); WBC 11.14 10^3/uL (4.4-10.8)
[2022-09-22 07:32] LABS: Anion Gap 5.9 mmol/L (3-11); BUN 17 mg/dL (7-18); CO2 31.1 mmol/L (21.0-32.0); CREATININE 0.8 mg/dL (0.55-1.02); Calcium 9.4 mg/dL (8.5-10.1); Chloride 105 mmol/L (98-107); Estimated GFR 79.22 (mL/min/1.73m2); Glucose 100 mg/dL (74-106); Magnesium 2.3 mg/dL (1.8-2.4); Potassium 4.1 mmol/L (3.5-5.1); Sodium 142 mmol/L (136-145)
[2022-09-22] MEDS: Albuterol/Ipratropium 3 ML UPD VIAL UPD ×3 (07:38→19:43)
[2022-09-22] MEDS: Docusate Sodium 100 MG/10 ML CUP PO (07:38)
[2022-09-22] MEDS: Polyethylene Glycol 3350 17 GM PACKET PO ×2 (07:38→20:00)
[2022-09-22] MEDS: cefTRIAXone 1 GM/50 ML BAG IVPB (07:38)
[2022-09-22] MEDS: Normal Saline Flush 10 ML SYR IVP ×2 (07:39→10:49)
[2022-09-22] MEDS: predniSONE 20 MG TAB 40 MG PO (07:39)
[2022-09-22] MEDS: Sertraline 100 MG TAB PO (07:39)
[2022-09-22] MEDS: Montelukast 10 MG TAB PO (07:39)
[2022-09-22] MEDS: guaiFENesin 600 MG TABCR 1200 MG PO ×2 (07:39→20:00)
[2022-09-22] MEDS: Enoxaparin 40 MG/0.4 ML SYR SC (07:39)
[2022-09-22] MEDS: Tiotropium Bromide-Respimat 10 PUFF INH 2 PUFF IH (08:00)
[2022-09-22] MEDS: Budesonide/Formoterol 80/4.5 6.9 GM 60 PUFF INH IH ×2 (08:00→19:41)
--- NOTE | 2022-09-22 10:31 | PT.INTREAT ---
PT Notes Visit Reasons: Community Acquired Pneumonia,Exacerbation of COPD Date: 09/22/2022 PRECAUTIONS: Activity as tolerated, Fall, REYNA on exertion SUBJECTIVE: Pt in recliner when approached for therapy this morning, pt just received morphine with increased O2 support to 3L via NC due to pt SaO2 dropping to 85% at rest at 2L. pt agreed to participating with therapy. OBJECTIVE:? BED MOBILITY/TRANSFERS? Sit-stand: Min A? Stand-sit: Min A? THEREX: pt engaged with chest expansion exercises with DBE incorporated with activity, pt also able to participate with multiple sit to stand and static standing using FWW with multi directional weight shifting duration 3mins with pt Sa02 staying at 90-92% with activity pulse at 85-105 during the duration of session ASSESSMENT: pt very dispnic during seated and standing activity but was able to maintain sao2 at a good level. PLAN: Continue with global strengthening, as tolerated, and introduce energy conservation strategies for improved safety with mobility as soon as pt is able to tolerate increased activity. TREATMENT CODE/TIME: Session 1: 15 minutes; 78544 (10:00-10:15am)?
[2022-09-22] MEDS: AZITHROMYCIN 250 MG in Normal Saline 250 ML IVPB (10:49)
[2022-09-22] MEDS: LORazepam 0.5 MG TAB PO (10:57)
[2022-09-22 14:16] VITALS: PULSE 98; RESP 16; RESP 8; O2SAT 97
[2022-09-22] MEDS: Albuterol 2.5 MG/3 ML INH SOLN VIAL IH (14:16)
--- NOTE | 2022-09-22 14:36 | W.PM.PROGNOT ---
Date of Service Date of service: 09/22/22 Time of Service: 14:36 Assessment and Plan Assessment and plan (1) COPD exacerbation: Status: Acute Assessment and plan: Chronic end stage COPD; Acute exacerbatio possible pneumonia Continue IV steroids, oxygen, nebulizers abx Cefepime and Azithromycin IV Takes Prednisone daily Pulmonology consult - see note Continue oral Morphine (2) Anxiety disorder, unspecified: Status: Chronic Assessment and plan: Chronic - Continue Trazadone 150 mg HS Lorazepam PRN (3) Depression, unspecified: Status: Chronic Assessment and plan: Chronic; continue home meds Sertraline 75 mg daily (4) Oxygen dependent: Status: Acute Assessment and plan: Chronic home O2; adjust O2 as needed - does not want to be intubated, reviewed and confirmed, also DNR, OK for BiPap or high flow O2 as needed. Currently on NC 3 LPM and doing well (5) DVT prophylaxis: Status: Acute Assessment and plan: Enoxaparin 40 mg daily (6) Discharge planning issues: Status: Acute Assessment and plan: Home v SNF Out pt Pulmonology referral discussed with Dr Bryson Subjective Subjective Patient reports: no new complaints, feels better, tolerating a regular diet, bowel movement, shortness of breath and afebrile; denies diarrhea, blood in stool, nausea or vomiting Interval history since last seen: Short of breath at baseline. She has been accepted at the [facility] and looks forward to going for a short period of time for rehab to gain strength. Exam Const General: anxious, frail appearing and ill appearing Orientation: alert, awake and oriented x3 HENMT Head: normal to inspection Ears: external ears normal General nose exam: external nose normal Mouth: moist mucous membranes Eyes General: appearance normal, both eyes and all related structures Neck Neck: normal visual inspection Chest Chest: normal inspection of the chest Resp Auscultation: wheezes expiratory wheezes and scattered wheezes Cardio Jugular venous pressure: no JVD Rate: regular rate Heart Sounds: no murmurs GI Inspection: normal to inspection Auscultation: normal bowel sounds Back/Spine/Pelvis Back: no CVA tenderness Skin General skin exam: no rashes or lesions noted Neuro General: patient alert, patient awake, patient oriented x3 and moves all extremities Extrem General: normal to inspection, full ROM and capillary refill normal Psych Mental Status: mental status grossly normal Objective Last Vital Signs Temp 36.7 C 09/22/22 07:17 Pulse 98 H 09/22/22 14:16 Resp 16 09/22/22 14:16 BP 109/64 09/22/22 07:17 Pulse Ox 97 09/22/22 14:16 Laboratory Results - last 24 hr 09/21/22 09/22/22 09/22/22 06:15 07:02 07:02 WBC 11.14 H RBC 5.78 H Hgb 16.2 H Hct 51.1 H MCV 88 MCH 28.0 MCHC 31.7 L RDW 13.6 Plt Count 253 MPV 8.9 Immature Gran % 3.5 Neutrophils % 62.4 Lymphocytes % 22.8 Monocytes % 7.2 Eosinophils % 3.3 Basophils % 0.8 Nucleated RBC % 0.0 Absolute Neutrophils 6.95 H Absolute Lymphocytes 2.54 Absolute Monocytes 0.80 Absolute Eosinophils 0.37 Absolute Basophils 0.09 Sodium 142 Potassium 4.1 Chloride 105 Carbon Dioxide 31.1 Anion Gap 5.9 BUN 17 Creatinine 0.8 Est GFR (CKD-EPI 2020) 79.22 Glucose 100 Calcium 9.4 Magnesium 2.3 C-Reactive Protein 0.14 Reviewed Pertinent PMH: Yes Time Spent with Patient Time Spent with Patient: 25-34 minutes Time was spent: preparing to see the patient(eg.review tests), ordering medications,tests, procedures, referring, communicating with other health career representative, indepentently interpreting results, counseling the patient and care coordination
[2022-09-22 15:22] VITALS: BP 106/74; PULSE 80; RESP 16; TEMP 37; O2SAT 94
[2022-09-22 17:37] VITALS: O2SAT 94
[2022-09-22 19:43] VITALS: PULSE 80; RESP 18; RESP 4; O2SAT 95
[2022-09-22] MEDS: traZODone 100 MG TAB 150 MG PO (21:05)
[2022-09-22 23:00] VITALS: BP 108/67; PULSE 67; RESP 20; TEMP 36; O2SAT 97
[2022-09-23] VITALS (10 sets, daily range): BP systolic 102–130; BP diastolic 62–68; PULSE 16–106; RESP 1–89; TEMP 36.4; O2SAT 90–97
[2022-09-23] MEDS: Albuterol 2.5 MG/3 ML INH SOLN VIAL IH ×2 (06:31→13:19)
[2022-09-23 06:53] LABS: Abs Immature Grans 0.42 10^3/uL (0.0-0.06); Absolute Basophil Count 0.07 10^3/uL (0.0-0.2); Absolute Eosinophil Count 0.27 10^3/uL (0.0-0.7); Absolute Lymphocyte Count 2.25 10^3/uL (1.2-3.4); Absolute Monocyte Count 0.77 10^3/uL (0.1-0.8); Basophils % 0.7; Eosinophils % 2.7; HCT 44.1 % (36.0-46.0); HGB 14.5 g/dL (11.2-15.7); Immature Grans % 4.1; Lymphocytes % 22.1; MCH 29.5 pg (27.0-33.0); MCHC 32.9 % (32.0-36.0); MCV 90 fL (80-95); MPV 9.2 fL (8.0-11.0); Monocytes % 7.6; Neutrophils % 62.8; Platelet Count 254 10^3/uL (130-400); RBC 4.92 10^6/uL (3.93-5.22); RDW 13.7 % (11.7-14.6); RDW-SD 44.4 fL; WBC 10.18 10^3/uL (4.4-10.8)
[2022-09-23 07:12] LABS: Anion Gap 6.2 mmol/L (3-11); BUN 18 mg/dL (7-18); CO2 28.8 mmol/L (21.0-32.0); CREATININE 0.7 mg/dL (0.55-1.02); Calcium 8.8 mg/dL (8.5-10.1); Chloride 108 mmol/L (98-107); Estimated GFR 92.98 (mL/min/1.73m2); Glucose 88 mg/dL (74-106); Magnesium 2.3 mg/dL (1.8-2.4); Potassium 4.1 mmol/L (3.5-5.1); Sodium 143 mmol/L (136-145)
[2022-09-23] MEDS: Enoxaparin 40 MG/0.4 ML SYR SC (07:42)
[2022-09-23] MEDS: Montelukast 10 MG TAB PO (07:42)
[2022-09-23] MEDS: predniSONE 20 MG TAB 40 MG PO (07:42)
[2022-09-23] MEDS: Sertraline 100 MG TAB PO (07:42)
[2022-09-23] MEDS: cefTRIAXone 1 GM/50 ML BAG IVPB (07:42)
[2022-09-23] MEDS: guaiFENesin 600 MG TABCR 1200 MG PO ×2 (07:42→20:27)
[2022-09-23] MEDS: Normal Saline Flush 10 ML SYR IVP ×2 (07:43→10:09)
[2022-09-23] MEDS: Tiotropium Bromide-Respimat 10 PUFF INH 2 PUFF IH (09:13)
[2022-09-23] MEDS: Budesonide/Formoterol 80/4.5 6.9 GM 60 PUFF INH IH ×2 (09:13→19:57)
[2022-09-23] MEDS: Albuterol/Ipratropium 3 ML UPD VIAL UPD (09:53)
[2022-09-23] MEDS: LORazepam 0.5 MG TAB PO ×2 (10:09→18:07)
[2022-09-23] MEDS: AZITHROMYCIN 250 MG in Normal Saline 250 ML IVPB (10:09)
--- NOTE | 2022-09-23 11:00 | W.PM.PROGNOT ---
Date of Service Date of service: 09/23/22 Time of Service: 11:00 Assessment and Plan Assessment and plan (1) COPD exacerbation: Status: Acute Assessment and plan: Chronic end stage COPD; Acute exacerbatio possible pneumonia Continue IV steroids, oxygen, nebulizers abx Cefepime and Azithromycin IV Takes Prednisone daily Pulmonology consult - see note Continue oral Morphine (2) Anxiety disorder, unspecified: Status: Chronic Assessment and plan: Chronic - Continue Trazadone 150 mg HS Lorazepam PRN (3) Depression, unspecified: Status: Chronic Assessment and plan: Chronic; continue home meds Sertraline 75 mg daily (4) Oxygen dependent: Status: Acute Assessment and plan: Chronic home O2; adjust O2 as needed - does not want to be intubated, reviewed and confirmed, also DNR, OK for BiPap or high flow O2 as needed. Currently on NC 3 LPM and doing well (5) DVT prophylaxis: Status: Acute Assessment and plan: Enoxaparin 40 mg daily (6) Discharge planning issues: Status: Acute Assessment and plan: Home v SNF Out pt Pulmonology referral discussed with Dr Bryson Subjective Subjective Patient reports: no new complaints, voiding w/o difficulty and bowel movement Exam Const General: anxious, frail appearing and ill appearing Orientation: alert, awake and oriented x3 HENMT Head: normal to inspection Ears: external ears normal General nose exam: external nose normal Mouth: moist mucous membranes Eyes General: appearance normal, both eyes and all related structures Neck Neck: normal visual inspection Chest Chest: normal inspection of the chest Resp Auscultation: wheezes expiratory wheezes and scattered wheezes Cardio Jugular venous pressure: no JVD Rate: regular rate Heart Sounds: no murmurs GI Inspection: normal to inspection Auscultation: normal bowel sounds Back/Spine/Pelvis Back: no CVA tenderness Skin General skin exam: no rashes or lesions noted Neuro General: patient alert, patient awake, patient oriented x3 and moves all extremities Extrem General: normal to inspection, full ROM and capillary refill normal Psych Mental Status: mental status grossly normal Objective Last Vital Signs Temp 36.4 C 09/23/22 07:38 Pulse 16 L 09/23/22 10:04 Resp 89 H 09/23/22 10:04 BP 102/68 09/23/22 07:38 Pulse Ox 95 09/23/22 10:04 Laboratory Results - last 24 hr 09/23/22 09/23/22 05:50 05:50 WBC 10.18 RBC 4.92 Hgb 14.5 Hct 44.1 MCV 90 MCH 29.5 MCHC 32.9 RDW 13.7 Plt Count 254 MPV 9.2 Immature Gran % 4.1 Neutrophils % 62.8 Lymphocytes % 22.1 Monocytes % 7.6 Eosinophils % 2.7 Basophils % 0.7 Nucleated RBC % 0.0 Absolute Neutrophils 6.40 Absolute Lymphocytes 2.25 Absolute Monocytes 0.77 Absolute Eosinophils 0.27 Absolute Basophils 0.07 Sodium 143 Potassium 4.1 Chloride 108 H Carbon Dioxide 28.8 Anion Gap 6.2 BUN 18 Creatinine 0.7 Est GFR (CKD-EPI 2020) 92.98 Glucose 88 Calcium 8.8 Magnesium 2.3 Time Spent with Patient Time Spent with Patient: 25-34 minutes Time was spent: preparing to see the patient(eg.review tests), ordering medications,tests, procedures, referring, communicating with other health rn progressive care, indepentently interpreting results, counseling the patient and care coordination
--- NOTE | 2022-09-23 12:18 | PT.INTREAT ---
PT Notes Visit Reasons: Community Acquired Pneumonia,Exacerbation of COPD Date: 09/22/2022 PRECAUTIONS: Activity as tolerated, Fall, REYNA on exertion SUBJECTIVE: Pt in bed when approached for therapy this morning, pt repoorts that she had a difficult time trying to get some sleep due to sinus congestion, feels very tired and is having a very difficult time breathing this morning. OBJECTIVE:? BED MOBILITY/TRANSFERS? Supine to EOB min A EOB to supine min A ? Sit-stand:? Min A? Stand-sit:? Min A? THEREX: Activity initiated with chest expansion exercises with DBE incorporated with activity, pt also able to participate with multiple sit to stand and static standing using FWW with multi directional weight shifting duration 3mins with pt Sa02 staying at 90-92% with activity pulse at 85-105 during the duration of session ASSESSMENT: pt very dyspneic during seated and standing activity but was able to maintain sao2 at a good level. PLAN: Continue with global strengthening, as tolerated, and introduce energy conservation strategies for improved safety with mobility as soon as pt is able to tolerate increased activity. TREATMENT CODE/TIME: Session 1: 15 minutes; 09292 (10:00-10:15am)?
[2022-09-23] MEDS: Ipratropium 0.5 MG/2.5 ML UPD VIAL UPD ×2 (16:31→20:00)
[2022-09-23] MEDS: Albuterol 2.5 MG/3 ML INH SOLN VIAL UPD ×2 (16:31→19:59)
[2022-09-23] MEDS: Docusate Sodium 100 MG CAP PO (20:27)
[2022-09-23] MEDS: Polyethylene Glycol 3350 17 GM PACKET PO (20:27)
[2022-09-23] MEDS: traZODone 100 MG TAB 150 MG PO (20:39)
[2022-09-24] VITALS (12 sets, daily range): BP systolic 106–116; BP diastolic 55–69; PULSE 79–101; RESP 1–20; TEMP 36.7–37.3; O2SAT 92–97
[2022-09-24] MEDS: LORazepam 0.5 MG TAB PO ×2 (05:46→21:18)
[2022-09-24 06:15] LABS: Absolute Basophil Count 0.05 10^3/uL (0.0-0.2); Absolute Monocyte Count 0.95 10^3/uL (0.1-0.8); Basophils % 0.4; Eosinophils % 1.7; HCT 44.8 % (36.0-46.0); HGB 14.4 g/dL (11.2-15.7); Lymphocytes % 19.1; MCH 28.8 pg (27.0-33.0); MCHC 32.1 % (32.0-36.0); MCV 90 fL (80-95); MPV 9.1 fL (8.0-11.0); Monocytes % 7.2; Neutrophils % 68.6; Platelet Count 262 10^3/uL (130-400); RDW 13.5 % (11.7-14.6); RDW-SD 44.3 fL; WBC 13.16 10^3/uL (4.4-10.8)
[2022-09-24 06:19] LABS: Absolute Eosinophil Count 0.22 10^3/uL (0.0-0.7); Absolute Lymphocyte Count 2.51 10^3/uL (1.2-3.4); Absolute Neutrophil Count 9.03 10^3/uL (1.2-6.7)
[2022-09-24 06:51] LABS: Anion Gap 7.9 mmol/L (3-11); BUN 15 mg/dL (7-18); CO2 26.1 mmol/L (21.0-32.0); CREATININE 0.8 mg/dL (0.55-1.02); Calcium 8.9 mg/dL (8.5-10.1); Chloride 107 mmol/L (98-107); Estimated GFR 79.22 (mL/min/1.73m2); Glucose 88 mg/dL (74-106); Magnesium 2.3 mg/dL (1.8-2.4); Potassium 4.4 mmol/L (3.5-5.1); Sodium 141 mmol/L (136-145)
--- NOTE | 2022-09-24 06:54 | W.PULMPROG ---
Assessment and Plan Assessment and plan (1) Anxiety with depression: Status: Acute (2) Respiratory failure with hypoxia: Status: Acute (3) Pneumonia: Status: Acute Assessment and plan: This is a 72 year old female admitted for COPD exacerbation after being sent to the ED from first office appointment. She continues to improve. She is also back onto normal nasal cannula. She is someone who frequently exacerbates and has had multiple hospitalizations. I do think she would benefit from either roflumilast or chronic azithromycin. She is open to participating in the RELIANCE trial, so have referred her and we will randomize her to one group and handle one of these prescriptions as an outpatient. She is awaiting SNF placement. COPD Exacerbation - continue Symbicort 80 - continue Spiriva respimat - discharge on inhalers above - Continue prednisone 40mg daily with a taper upon D/C: - 40mg for 5 days, 30mg for 3 days, 20mg for 3 days, 10mg for 3 days, 5mg for 3 days - Duonebs QID - prn albuterol - Continue prn ativan/morphine for air hunger or increased WOB. - consider transitioning to PO morphine before discharge to send home with for air hunger -continue PT and ambulation - referred to RELIANCE trial Pneumonia - a/p ceftriaxone and azithromycin - Acapella and IS Hypoxic respiratory failure - 3-4 LPM O2 at baseline - on NC now - not a CO2 retainer General Date Of Service Date of service: 09/24/22 Time of Service: 06:54 Reason for Consult: COPD Exacerbation Subjective Note Note: Carina continues to improve. PT has seen her who recommends SNF - she is awaiting a bed. Exam Narrative Exam Narrative: Gen: NAD, normal respiratory effort, well-nourished HENT: PERRL Chest: No respiratory distress, normal appearance of chest, clear to auscultation bilaterally, no crackles or wheezes, normal inspiratory effort Heart: regular rate and rhythym, no murmurs, rubs or gallops Abdomen: Non-distended, soft, non tender Extremities: No clubbing, edema, cyanosis, rashes Neuro: AAOx3 , non focal Psych: cooperative, appropriate mental affect Objective Last Vital Signs Temp 36.7 C 09/24/22 00:30 Pulse 87 09/24/22 00:30 Resp 20 09/24/22 00:30 BP 106/63 09/24/22 00:30 Pulse Ox 94 09/24/22 00:30 Laboratory Results - last 24 hr 09/23/22 09/23/22 09/24/22 05:50 05:50 06:00 WBC 10.18 13.16 H RBC 4.92 5.00 Hgb 14.5 14.4 Hct 44.1 44.8 MCV 90 90 MCH 29.5 28.8 MCHC 32.9 32.1 RDW 13.7 13.5 Plt Count 254 262 MPV 9.2 9.1 Immature Gran % 4.1 3.0 Neutrophils % 62.8 68.6 Lymphocytes % 22.1 19.1 Monocytes % 7.6 7.2 Eosinophils % 2.7 1.7 Basophils % 0.7 0.4 Nucleated RBC % 0.0 0.0 Absolute Neutrophils 6.40 9.03 H Absolute Lymphocytes 2.25 2.51 Absolute Monocytes 0.77 0.95 H Absolute Eosinophils 0.27 0.22 Absolute Basophils 0.07 0.05 Sodium 143 Potassium 4.1 Chloride 108 H Carbon Dioxide 28.8 Anion Gap 6.2 BUN 18 Creatinine 0.7 Est GFR (CKD-EPI 2020) 92.98 Glucose 88 Calcium 8.8 Magnesium 2.3 Results Medications Medications: Active Medications Generic Name Dose Route Start Last Admin Trade Name Freq PRN Reason Stop Dose Admin Al Hydrox/Mg Hydrox/Simethicone 30 ml 09/18/22 09:48 Mylanta Suspension 30 Ml Cup PO QID PRN PRN Albuterol Sulfate 2.5 mg 09/17/22 19:54 09/23/22 13:19 Albuterol 2.5 Mg/3 Ml Inh Soln Vial IH 2.5 mg Q1H PRN PRN Administration Albuterol Sulfate 2.5 mg 09/23/22 16:00 09/23/22 19:59 Albuterol 2.5 Mg/3 Ml Inh Soln Vial UPD 2.5 mg QID ALIYAH Administration Bisacodyl 10 mg 09/20/22 16:57 Bisacodyl 10 Mg Supp VT DAILY PRN PRN Budesonide/Formoterol Fumarate 2 puff 09/18/22 20:00 09/23/22 19:57 Budesonide/Formoterol 80/4.5 6.9 Gm 60 Puff Inh IH 2 puffs BID ALIYAH Administration Device 1 each 09/17/22 23:00 Inhaler, Assist Device MC DIRECTED ALIYAH Docusate Sodium 100 mg 09/23/22 08:30 09/23/22 20:27 Docusate Sodium 100 Mg Cap PO 100 mg BID ALIYAH Administration Enoxaparin Sodium 40 mg 09/18/22 08:30 09/23/22 07:42 Enoxaparin 40 Mg/0.4 Ml Syr SC 40 mg DAILY ALIYAH Administration Fluticasone Propionate 16 gm 09/24/22 08:30 Fluticasone Nasal Bunch 16 Gm Btl NS DAILY [facility] Guaifenesin 1,200 mg 09/17/22 20:00 09/23/22 20:27 Guaifenesin 600 Mg Tabcr PO 1,200 mg BID [facility] Administration Sodium Chloride 500 mls @ 0 mls/hr 09/17/22 15:00 09/21/22 11:54 Saline 500ml Bag IV 0 mls/hr PRN PRN Infusion As Directed Ceftriaxone Sodium/Dextrose 1 gm in 50 mls @ 100 mls/hr 09/18/22 08:00 09/23/22 09:40 Rocephin IVPB Infused Q24H [facility] Infusion Azithromycin 250 mg/ Sodium 250 mls @ 250 mls/hr 09/18/22 10:00 09/23/22 11:52 Chloride IVPB Infused Q24H [facility] Infusion IV Miscellaneous Supplies 1 each 09/17/22 15:00 Iv Access IV DIRECTED [facility] Ipratropium [place] 0.5 mg 09/23/22 16:00 09/23/22 20:00 Ipratropium 0.5 Mg/2.5 Ml Upd Vial UPD 0.5 mg QID ALIYAH Administration Lorazepam 0.5 mg 09/17/22 21:07 09/24/22 05:46 Lorazepam 0.5 Mg Tab PO 0.5 mg TID PRN PRN Administration Montelukast Sodium 10 mg 09/18/22 08:30 09/23/22 07:42 Montelukast 10 Mg Tab PO 10 mg DAILY ALIYAH Administration Morphine Sulfate 10 mg 09/20/22 19:38 09/23/22 16:46 Morphine 10 Mg/5ml Soln. 5ml Cup PO 10 mg Q3H PRN PRN Administration Polyethylene Glycol 17 gm 09/20/22 20:00 09/23/22 20:27 Polyethylene Glycol 3350 17 Gm Packet PO 17 gm BID ALIYAH Administration Prednisone 40 mg 09/18/22 08:30 09/23/22 07:42 Prednisone 20 Mg Tab PO 40 mg DAILY ALIYAH Administration Sertraline HCl 100 mg 09/20/22 08:30 09/23/22 07:42 Sertraline 100 Mg Tab PO 100 mg DAILY ALIYAH Administration Sodium Chloride 0 ml 09/17/22 15:00 09/23/22 10:09 Normal Saline Flush 10 Ml Syr IVP 10 ml PRN PRN Administration Tiotropium [place] 2 puff 09/19/22 08:30 09/23/22 09:13 Tiotropium [place]-Respimat 10 Puff Inh IH 2 puffs DAILY ALIYAH Administration Trazodone HCl 150 mg 09/17/22 19:08 09/23/22 20:39 Trazodone 100 Mg Tab PO 150 mg HS PRN PRN Administration Allergies escitalopram [From Lexapro] Allergy (Unknown, Verified 09/17/22 14:53) Nausea Labs 09/24/22 06:00 09/23/22 05:50 Labs: 09/17/22 15:50 Blood Blood Culture - Final NO GROWTH 120 HOURS 09/17/22 15:50 Blood Blood Culture - Final NO GROWTH 120 HOURS Laboratory Tests Range/Units 09/17/22 09/17/22 09/17/22 14:55 14:55 14:55 WBC (4.4-10.8) 10^3/uL 13.19 H RBC (3.93-5.22) 10^6/uL 5.28 H Hgb (11.2-15.7) g/dL 15.0 Hct (36.0-46.0) % 47.5 H MCV (80-95) fL 90 MCH (27.0-33.0) pg 28.4 MCHC (32.0-36.0) % 31.6 L RDW (11.7-14.6) % 13.8 Plt Count (130-400) 10^3/uL 236 MPV (8.0-11.0) fL 8.9 Immature Gran % 0.7 Neutrophils % 86.3 Lymphocytes % 6.4 Monocytes % 6.2 Eosinophils % 0.2 Basophils % 0.2 Nucleated RBC % (0.0-0.3) % 0.0 Absolute Neutrophils (1.2-6.7) 10^3/uL 11.38 H Absolute Lymphocytes (1.2-3.4) 10^3/uL 0.84 L Absolute Monocytes (0.1-0.8) 10^3/uL 0.82 H Absolute Eosinophils (0.0-0.7) 10^3/uL 0.03 Absolute Basophils (0.0-0.2) 10^3/uL 0.03 D-Dimer (<500) ng/mlFEU ABG Sample Site ABG pH (7.35-7.45) ABG pCO2 (35-45) mmHg ABG pO2 (80-105) mmHg ABG HCO3 (22-26) mmol/L ABG Total CO2 (23-27) mmol/L ABG O2 Saturation (95-98) % ABG Base Excess (-2-3) mmol/L VBG pH (7.31-7.41) VBG pCO2 (41-51) mmHg VBG pO2 mmHg VBG HCO3 (23-28) mmol/L VBG Total CO2 (24-29) mmol/L VBG O2 Saturation % VBG Base Excess (-2-3) mmol/L Oxygen Liter Flow L Sodium (136-145) mmol/L 141 Potassium (3.5-5.1) mmol/L 4.2 Chloride (98-107) mmol/L 105 Carbon Dioxide (21.0-32.0) mmol/L 29.0 Anion Gap (3-11) mmol/L 7.0 BUN (7-18) mg/dL 14 Creatinine (0.55-1.02) mg/dL 0.8 Est GFR (CKD-EPI 2020) (mL/min/1.73m2) 79.22 Glucose (74-106) mg/dL 160 H Calcium (8.5-10.1) mg/dL 9.4 Magnesium (1.8-2.4) mg/dL 2.3 Total Bilirubin (0.2-1.0) mg/dL 0.4 AST (15-37) U/L 13 L ALT (14-59) U/L 23 Alkaline Phosphatase (46-116) U/L 93 Troponin I (<or=60) ng/L < 50 C-Reactive Protein (0.0-0.3) mg/dL NT-Pro-B Natriuret Pep (<300) pg/mL 103 Total Protein (6.4-8.2) g/dL 7.2 Albumin (3.4-5.0) g/dL 3.6 Procalcitonin ng/mL < 0.1 COVID-19 Source SARS-CoV-2 (PCR) (Negative) Influenza Type A (PCR) (Negative) Influenza Type B (PCR) (Negative) RSV (PCR) (Negative) Add-On Test Request Range/Units 09/17/22 09/17/22 09/17/22 14:55 15:10 15:30 WBC (4.4-10.8) 10^3/uL RBC (3.93-5.22) 10^6/uL Hgb (11.2-15.7) g/dL Hct (36.0-46.0) % MCV (80-95) fL MCH (27.0-33.0) pg MCHC (32.0-36.0) % RDW (11.7-14.6) % Plt Count (130-400) 10^3/uL MPV (8.0-11.0) fL Immature Gran % Neutrophils % Lymphocytes % Monocytes % Eosinophils % Basophils % Nucleated RBC % (0.0-0.3) % Absolute Neutrophils (1.2-6.7) 10^3/uL Absolute Lymphocytes (1.2-3.4) 10^3/uL Absolute Monocytes (0.1-0.8) 10^3/uL Absolute Eosinophils (0.0-0.7) 10^3/uL Absolute Basophils (0.0-0.2) 10^3/uL D-Dimer (<500) ng/mlFEU ABG Sample Site Right Radial ABG pH (7.35-7.45) 7.43 ABG pCO2 (35-45) mmHg 42 ABG pO2 (80-105) mmHg 95 ABG HCO3 (22-26) mmol/L 28 H ABG Total CO2 (23-27) mmol/L 24 ABG O2 Saturation (95-98) % 98 ABG Base Excess (-2-3) mmol/L 3 VBG pH (7.31-7.41) 7.37 VBG pCO2 (41-51) mmHg 51 VBG pO2 mmHg 49 VBG HCO3 (23-28) mmol/L 29 H VBG Total CO2 (24-29) mmol/L 26 VBG O2 Saturation % 85 VBG Base Excess (-2-3) mmol/L 4 H Oxygen Liter Flow L 3 Sodium (136-145) mmol/L Potassium (3.5-5.1) mmol/L Chloride (98-107) mmol/L Carbon Dioxide (21.0-32.0) mmol/L Anion Gap (3-11) mmol/L BUN (7-18) mg/dL Creatinine (0.55-1.02) mg/dL Est GFR (CKD-EPI 2020) (mL/min/1.73m2) Glucose (74-106) mg/dL Calcium (8.5-10.1) mg/dL Magnesium (1.8-2.4) mg/dL Total Bilirubin (0.2-1.0) mg/dL AST (15-37) U/L ALT (14-59) U/L Alkaline Phosphatase (46-116) U/L Troponin I (<or=60) ng/L C-Reactive Protein (0.0-0.3) mg/dL NT-Pro-B Natriuret Pep (<300) pg/mL Total Protein (6.4-8.2) g/dL Albumin (3.4-5.0) g/dL Procalcitonin ng/mL COVID-19 Source Nasopharynx SARS-CoV-2 (PCR) (Negative) Negative Influenza Type A (PCR) (Negative) Negative Influenza Type B (PCR) (Negative) Negative RSV (PCR) (Negative) Negative Add-On Test Request Range/Units 09/17/22 09/17/22 09/18/22 19:35 19:35 06:20 WBC (4.4-10.8) 10^3/uL RBC (3.93-5.22) 10^6/uL Hgb (11.2-15.7) g/dL Hct (36.0-46.0) % MCV (80-95) fL MCH (27.0-33.0) pg MCHC (32.0-36.0) % RDW (11.7-14.6) % Plt Count (130-400) 10^3/uL MPV (8.0-11.0) fL Immature Gran % Neutrophils % Lymphocytes % Monocytes % Eosinophils % Basophils % Nucleated RBC % (0.0-0.3) % Absolute Neutrophils (1.2-6.7) 10^3/uL Absolute Lymphocytes (1.2-3.4) 10^3/uL Absolute Monocytes (0.1-0.8) 10^3/uL Absolute Eosinophils (0.0-0.7) 10^3/uL Absolute Basophils (0.0-0.2) 10^3/uL D-Dimer (<500) ng/mlFEU ABG Sample Site ABG pH (7.35-7.45) ABG pCO2 (35-45) mmHg ABG pO2 (80-105) mmHg ABG HCO3 (22-26) mmol/L ABG Total CO2 (23-27) mmol/L ABG O2 Saturation (95-98) % ABG Base Excess (-2-3) mmol/L VBG pH (7.31-7.41) 7.41 VBG pCO2 (41-51) mmHg 43 VBG pO2 mmHg 186 VBG HCO3 (23-28) mmol/L 27 VBG Total CO2 (24-29) mmol/L Not Applicable VBG O2 Saturation % > 99 VBG Base Excess (-2-3) mmol/L 3 Oxygen Liter Flow L Sodium (136-145) mmol/L 143 Potassium (3.5-5.1) mmol/L 4.6 Chloride (98-107) mmol/L 109 H Carbon Dioxide (21.0-32.0) mmol/L 28.8 Anion Gap (3-11) mmol/L 5.2 BUN (7-18) mg/dL 16 Creatinine (0.55-1.02) mg/dL 0.8 Est GFR (CKD-EPI 2020) (mL/min/1.73m2) 79.22 Glucose (74-106) mg/dL 144 H Calcium (8.5-10.1) mg/dL 8.5 Magnesium (1.8-2.4) mg/dL 2.5 H Total Bilirubin (0.2-1.0) mg/dL AST (15-37) U/L ALT (14-59) U/L Alkaline Phosphatase (46-116) U/L Troponin I (<or=60) ng/L < 50 C-Reactive Protein (0.0-0.3) mg/dL 1.38 H NT-Pro-B Natriuret Pep (<300) pg/mL Total Protein (6.4-8.2) g/dL Albumin (3.4-5.0) g/dL Procalcitonin ng/mL COVID-19 Source SARS-CoV-2 (PCR) (Negative) Influenza Type A (PCR) (Negative) Influenza Type B (PCR) (Negative) RSV (PCR) (Negative) Add-On Test Request Range/Units 09/18/22 09/18/22 09/18/22 06:20 07:37 07:55 WBC (4.4-10.8) 10^3/uL 8.25 RBC (3.93-5.22) 10^6/uL 4.61 Hgb (11.2-15.7) g/dL 13.3 Hct (36.0-46.0) % 41.3 MCV (80-95) fL 90 MCH (27.0-33.0) pg 28.9 MCHC (32.0-36.0) % 32.2 RDW (11.7-14.6) % 13.9 Plt Count (130-400) 10^3/uL 209 MPV (8.0-11.0) fL 9.2 Immature Gran % 0.7 Neutrophils % 86.9 Lymphocytes % 7.6 Monocytes % 4.7 Eosinophils % 0.0 Basophils % 0.1 Nucleated RBC % (0.0-0.3) % 0.0 Absolute Neutrophils (1.2-6.7) 10^3/uL 7.16 H Absolute Lymphocytes (1.2-3.4) 10^3/uL 0.63 L Absolute Monocytes (0.1-0.8) 10^3/uL 0.39 Absolute Eosinophils (0.0-0.7) 10^3/uL 0.00 Absolute Basophils (0.0-0.2) 10^3/uL 0.01 D-Dimer (<500) ng/mlFEU 1130 H ABG Sample Site ABG pH (7.35-7.45) ABG pCO2 (35-45) mmHg ABG pO2 (80-105) mmHg ABG HCO3 (22-26) mmol/L ABG Total CO2 (23-27) mmol/L ABG O2 Saturation (95-98) % ABG Base Excess (-2-3) mmol/L VBG pH (7.31-7.41) VBG pCO2 (41-51) mmHg VBG pO2 mmHg VBG HCO3 (23-28) mmol/L VBG Total CO2 (24-29) mmol/L VBG O2 Saturation % VBG Base Excess (-2-3) mmol/L Oxygen Liter Flow L Sodium (136-145) mmol/L Potassium (3.5-5.1) mmol/L Chloride (98-107) mmol/L Carbon Dioxide (21.0-32.0) mmol/L Anion Gap (3-11) mmol/L BUN (7-18) mg/dL Creatinine (0.55-1.02) mg/dL Est GFR (CKD-EPI 2020) (mL/min/1.73m2) Glucose (74-106) mg/dL Calcium (8.5-10.1) mg/dL Magnesium (1.8-2.4) mg/dL Total Bilirubin (0.2-1.0) mg/dL AST (15-37) U/L ALT (14-59) U/L Alkaline Phosphatase (46-116) U/L Troponin I (<or=60) ng/L C-Reactive Protein (0.0-0.3) mg/dL NT-Pro-B Natriuret Pep (<300) pg/mL Total Protein (6.4-8.2) g/dL Albumin (3.4-5.0) g/dL Procalcitonin ng/mL COVID-19 Source SARS-CoV-2 (PCR) (Negative) Influenza Type A (PCR) (Negative) Influenza Type B (PCR) (Negative) RSV (PCR) (Negative) Add-On Test Request DONE Range/Units 09/20/22 09/20/22 09/20/22 06:04 06:04 07:42 WBC (4.4-10.8) 10^3/uL 7.48 RBC (3.93-5.22) 10^6/uL 4.87 Hgb (11.2-15.7) g/dL 14.1 Hct (36.0-46.0) % 43.4 MCV (80-95) fL 89 MCH (27.0-33.0) pg 29.0 MCHC (32.0-36.0) % 32.5 RDW (11.7-14.6) % 13.9 Plt Count (130-400) 10^3/uL 168 MPV (8.0-11.0) fL Immature Gran % 1.5 Neutrophils % 59.2 Lymphocytes % 26.3 Monocytes % 9.1 Eosinophils % 3.5 Basophils % 0.4 Nucleated RBC % (0.0-0.3) % 0.0 Absolute Neutrophils (1.2-6.7) 10^3/uL 4.43 Absolute Lymphocytes (1.2-3.4) 10^3/uL 1.97 Absolute Monocytes (0.1-0.8) 10^3/uL 0.68 Absolute Eosinophils (0.0-0.7) 10^3/uL 0.26 Absolute Basophils (0.0-0.2) 10^3/uL 0.03 D-Dimer (<500) ng/mlFEU ABG Sample Site ABG pH (7.35-7.45) ABG pCO2 (35-45) mmHg ABG pO2 (80-105) mmHg ABG HCO3 (22-26) mmol/L ABG Total CO2 (23-27) mmol/L ABG O2 Saturation (95-98) % ABG Base Excess (-2-3) mmol/L VBG pH (7.31-7.41) VBG pCO2 (41-51) mmHg VBG pO2 mmHg VBG HCO3 (23-28) mmol/L VBG Total CO2 (24-29) mmol/L VBG O2 Saturation % VBG Base Excess (-2-3) mmol/L Oxygen Liter Flow L Sodium (136-145) mmol/L Cancelled 141 Potassium (3.5-5.1) mmol/L Cancelled 3.8 Chloride (98-107) mmol/L Cancelled 107 Carbon Dioxide (21.0-32.0) mmol/L Cancelled 30.3 Anion Gap (3-11) mmol/L Cancelled 3.7 BUN (7-18) mg/dL Cancelled 13 Creatinine (0.55-1.02) mg/dL Cancelled 0.6 Est GFR (CKD-EPI 2020) (mL/min/1.73m2) Cancelled 96.50 Glucose (74-106) mg/dL Cancelled 89 Calcium (8.5-10.1) mg/dL Cancelled 8.6 Magnesium (1.8-2.4) mg/dL Cancelled 2.1 Total Bilirubin (0.2-1.0) mg/dL AST (15-37) U/L ALT (14-59) U/L Alkaline Phosphatase (46-116) U/L Troponin I (<or=60) ng/L C-Reactive Protein (0.0-0.3) mg/dL NT-Pro-B Natriuret Pep (<300) pg/mL Total Protein (6.4-8.2) g/dL Albumin (3.4-5.0) g/dL Procalcitonin ng/mL COVID-19 Source SARS-CoV-2 (PCR) (Negative) Influenza Type A (PCR) (Negative) Influenza Type B (PCR) (Negative) RSV (PCR) (Negative) Add-On Test Request Range/Units 09/21/22 09/21/22 09/22/22 06:15 06:15 07:02 WBC (4.4-10.8) 10^3/uL 10.51 RBC (3.93-5.22) 10^6/uL 5.37 H Hgb (11.2-15.7) g/dL 15.2 Hct (36.0-46.0) % 47.2 H MCV (80-95) fL 88 MCH (27.0-33.0) pg 28.3 MCHC (32.0-36.0) % 32.2 RDW (11.7-14.6) % 13.4 Plt Count (130-400) 10^3/uL 249 MPV (8.0-11.0) fL 8.9 Immature Gran % 2.9 Neutrophils % 59.6 Lymphocytes % 25.2 Monocytes % 8.1 Eosinophils % 3.4 Basophils % 0.8 Nucleated RBC % (0.0-0.3) % 0.0 Absolute Neutrophils (1.2-6.7) 10^3/uL 6.26 Absolute Lymphocytes (1.2-3.4) 10^3/uL 2.65 Absolute Monocytes (0.1-0.8) 10^3/uL 0.85 H Absolute Eosinophils (0.0-0.7) 10^3/uL 0.36 Absolute Basophils (0.0-0.2) 10^3/uL 0.08 D-Dimer (<500) ng/mlFEU ABG Sample Site ABG pH (7.35-7.45) ABG pCO2 (35-45) mmHg ABG pO2 (80-105) mmHg ABG HCO3 (22-26) mmol/L ABG Total CO2 (23-27) mmol/L ABG O2 Saturation (95-98) % ABG Base Excess (-2-3) mmol/L VBG pH (7.31-7.41) VBG pCO2 (41-51) mmHg VBG pO2 mmHg VBG HCO3 (23-28) mmol/L VBG Total CO2 (24-29) mmol/L VBG O2 Saturation % VBG Base Excess (-2-3) mmol/L Oxygen Liter Flow L Sodium (136-145) mmol/L 137 142 Potassium (3.5-5.1) mmol/L 3.5 4.1 Chloride (98-107) mmol/L 100 105 Carbon Dioxide (21.0-32.0) mmol/L 32.1 H 31.1 Anion Gap (3-11) mmol/L 4.9 5.9 BUN (7-18) mg/dL 16 17 Creatinine (0.55-1.02) mg/dL 0.8 0.8 Est GFR (CKD-EPI 2020) (mL/min/1.73m2) 79.22 79.22 Glucose (74-106) mg/dL 87 100 Calcium (8.5-10.1) mg/dL 9.2 9.4 Magnesium (1.8-2.4) mg/dL 2.2 2.3 Total Bilirubin (0.2-1.0) mg/dL AST (15-37) U/L ALT (14-59) U/L Alkaline Phosphatase (46-116) U/L Troponin I (<or=60) ng/L C-Reactive Protein (0.0-0.3) mg/dL 0.14 NT-Pro-B Natriuret Pep (<300) pg/mL Total Protein (6.4-8.2) g/dL Albumin (3.4-5.0) g/dL Procalcitonin ng/mL COVID-19 Source SARS-CoV-2 (PCR) (Negative) Influenza Type A (PCR) (Negative) Influenza Type B (PCR) (Negative) RSV (PCR) (Negative) Add-On Test Request Range/Units 09/22/22 09/23/22 09/23/22 07:02 05:50 05:50 WBC (4.4-10.8) 10^3/uL 11.14 H 10.18 RBC (3.93-5.22) 10^6/uL 5.78 H 4.92 Hgb (11.2-15.7) g/dL 16.2 H 14.5 Hct (36.0-46.0) % 51.1 H 44.1 MCV (80-95) fL 88 90 MCH (27.0-33.0) pg 28.0 29.5 MCHC (32.0-36.0) % 31.7 L 32.9 RDW (11.7-14.6) % 13.6 13.7 Plt Count (130-400) 10^3/uL 253 254 MPV (8.0-11.0) fL 8.9 9.2 Immature Gran % 3.5 4.1 Neutrophils % 62.4 62.8 Lymphocytes % 22.8 22.1 Monocytes % 7.2 7.6 Eosinophils % 3.3 2.7 Basophils % 0.8 0.7 Nucleated RBC % (0.0-0.3) % 0.0 0.0 Absolute Neutrophils (1.2-6.7) 10^3/uL 6.95 H 6.40 Absolute Lymphocytes (1.2-3.4) 10^3/uL 2.54 2.25 Absolute Monocytes (0.1-0.8) 10^3/uL 0.80 0.77 Absolute Eosinophils (0.0-0.7) 10^3/uL 0.37 0.27 Absolute Basophils (0.0-0.2) 10^3/uL 0.09 0.07 D-Dimer (<500) ng/mlFEU ABG Sample Site ABG pH (7.35-7.45) ABG pCO2 (35-45) mmHg ABG pO2 (80-105) mmHg ABG HCO3 (22-26) mmol/L ABG Total CO2 (23-27) mmol/L ABG O2 Saturation (95-98) % ABG Base Excess (-2-3) mmol/L VBG pH (7.31-7.41) VBG pCO2 (41-51) mmHg VBG pO2 mmHg VBG HCO3 (23-28) mmol/L VBG Total CO2 (24-29) mmol/L VBG O2 Saturation % VBG Base Excess (-2-3) mmol/L Oxygen Liter Flow L Sodium (136-145) mmol/L 143 Potassium (3.5-5.1) mmol/L 4.1 Chloride (98-107) mmol/L 108 H Carbon Dioxide (21.0-32.0) mmol/L 28.8 Anion Gap (3-11) mmol/L 6.2 BUN (7-18) mg/dL 18 Creatinine (0.55-1.02) mg/dL 0.7 Est GFR (CKD-EPI 2020) (mL/min/1.73m2) 92.98 Glucose (74-106) mg/dL 88 Calcium (8.5-10.1) mg/dL 8.8 Magnesium (1.8-2.4) mg/dL 2.3 Total Bilirubin (0.2-1.0) mg/dL AST (15-37) U/L ALT (14-59) U/L Alkaline Phosphatase (46-116) U/L Troponin I (<or=60) ng/L C-Reactive Protein (0.0-0.3) mg/dL NT-Pro-B Natriuret Pep (<300) pg/mL Total Protein (6.4-8.2) g/dL Albumin (3.4-5.0) g/dL Procalcitonin ng/mL COVID-19 Source SARS-CoV-2 (PCR) (Negative) Influenza Type A (PCR) (Negative) Influenza Type B (PCR) (Negative) RSV (PCR) (Negative) Add-On Test Request Range/Units 09/24/22 06:00 WBC (4.4-10.8) 10^3/uL 13.16 H RBC (3.93-5.22) 10^6/uL 5.00 Hgb (11.2-15.7) g/dL 14.4 Hct (36.0-46.0) % 44.8 MCV (80-95) fL 90 MCH (27.0-33.0) pg 28.8 MCHC (32.0-36.0) % 32.1 RDW (11.7-14.6) % 13.5 Plt Count (130-400) 10^3/uL 262 MPV (8.0-11.0) fL 9.1 Immature Gran % 3.0 Neutrophils % 68.6 Lymphocytes % 19.1 Monocytes % 7.2 Eosinophils % 1.7 Basophils % 0.4 Nucleated RBC % (0.0-0.3) % 0.0 Absolute Neutrophils (1.2-6.7) 10^3/uL 9.03 H Absolute Lymphocytes (1.2-3.4) 10^3/uL 2.51 Absolute Monocytes (0.1-0.8) 10^3/uL 0.95 H Absolute Eosinophils (0.0-0.7) 10^3/uL 0.22 Absolute Basophils (0.0-0.2) 10^3/uL 0.05 D-Dimer (<500) ng/mlFEU ABG Sample Site ABG pH (7.35-7.45) ABG pCO2 (35-45) mmHg ABG pO2 (80-105) mmHg ABG HCO3 (22-26) mmol/L ABG Total CO2 (23-27) mmol/L ABG O2 Saturation (95-98) % ABG Base Excess (-2-3) mmol/L VBG pH (7.31-7.41) VBG pCO2 (41-51) mmHg VBG pO2 mmHg VBG HCO3 (23-28) mmol/L VBG Total CO2 (24-29) mmol/L VBG O2 Saturation % VBG Base Excess (-2-3) mmol/L Oxygen Liter Flow L Sodium (136-145) mmol/L Potassium (3.5-5.1) mmol/L Chloride (98-107) mmol/L Carbon Dioxide (21.0-32.0) mmol/L Anion Gap (3-11) mmol/L BUN (7-18) mg/dL Creatinine (0.55-1.02) mg/dL Est GFR (CKD-EPI 2020) (mL/min/1.73m2) Glucose (74-106) mg/dL Calcium (8.5-10.1) mg/dL Magnesium (1.8-2.4) mg/dL Total Bilirubin (0.2-1.0) mg/dL AST (15-37) U/L ALT (14-59) U/L Alkaline Phosphatase (46-116) U/L Troponin I (<or=60) ng/L C-Reactive Protein (0.0-0.3) mg/dL NT-Pro-B Natriuret Pep (<300) pg/mL Total Protein (6.4-8.2) g/dL Albumin (3.4-5.0) g/dL Procalcitonin ng/mL COVID-19 Source SARS-CoV-2 (PCR) (Negative) Influenza Type A (PCR) (Negative) Influenza Type B (PCR) (Negative) RSV (PCR) (Negative) Add-On Test Request
[2022-09-24] MEDS: Polyethylene Glycol 3350 17 GM PACKET PO ×2 (08:30→21:18)
[2022-09-24] MEDS: Normal Saline Flush 10 ML SYR IVP (08:30)
[2022-09-24] MEDS: Normal Saline 500 ML 100 ML IV (08:30)
[2022-09-24] MEDS: Sertraline 100 MG TAB PO (08:31)
[2022-09-24] MEDS: guaiFENesin 600 MG TABCR 1200 MG PO ×2 (08:31→21:18)
[2022-09-24] MEDS: Enoxaparin 40 MG/0.4 ML SYR SC (08:31)
[2022-09-24] MEDS: predniSONE 20 MG TAB 40 MG PO (08:31)
[2022-09-24] MEDS: Docusate Sodium 100 MG CAP PO ×2 (08:31→21:18)
[2022-09-24] MEDS: cefTRIAXone 1 GM/50 ML BAG IVPB (08:31)
[2022-09-24] MEDS: Montelukast 10 MG TAB PO (08:31)
[2022-09-24] MEDS: Albuterol 2.5 MG/3 ML INH SOLN VIAL UPD ×4 (08:51→19:38)
[2022-09-24] MEDS: Ipratropium 0.5 MG/2.5 ML UPD VIAL UPD ×4 (08:51→19:37)
[2022-09-24] MEDS: Tiotropium Bromide-Respimat 10 PUFF INH 2 PUFF IH (08:56)
[2022-09-24] MEDS: Budesonide/Formoterol 80/4.5 6.9 GM 60 PUFF INH IH ×2 (08:57→19:36)
--- NOTE | 2022-09-24 10:10 | PTTR_ITS ---
Date of service: 09/24/22 Time of Service: 09:30 PT Notes Visit Reasons: Community Acquired Pneumonia,Exacerbation of COPD Inpatient Physical Therapy Treatment Note [facility] Date: 09/24/2022 PRECAUTIONS: Fall, activity as tolerated, monitor SaO2 SUBJECTIVE: Carina is pleasant and agreeable to participating in PT. She reports that she is feeling somewhat better today, although still feels SOB with all a ctivity. OBJECTIVE: PAIN: No c/o pain BED MOBILITY/TRANSFERS Supine-sit: I with HOB at 50 degrees Sit-supine: I with HOB at 50 degrees Sit-stand: SBA Stand-sit: SBA Bed-Chair: SBA GAIT Assistive Device: FWW Weight bearing: Full Assist: SBA Distance: 10' in a.m.; 20' x 3 in p.m. Deviation: Slow pacing, SOB, seated rest x2 VITALS: 88-93% on 1L via NC with activity and at rest THEREX: Patient was instructed in deep breathing exercises in combination with chest expansion. Patient requires cueing for activity initiation and proper exercise performance for maximum benefit. ASSESSMENT: Patient tolerated session with c/o SOB with all activity. She demonstrates limited activity tolerance and general deconditioning. PLAN: Continue with general conditioning and gait and transfer training for improved activity tolerance and mobility. Recommend discharge to SNF-level rehab due to current functional mobility limitations. TREATMENT CODE/TIME: Session 1: 25 minutes; 56556 x2 (09:30) Session 2: 30 minutes; [id number] x2 (14:30)
[2022-09-24] MEDS: Fluticasone NASAL SPRAY 16 GM BTL NS (10:19)
--- NOTE | 2022-09-24 14:00 | W.PM.PROGNOT ---
Date of Service Date of service: 09/24/22 Time of Service: 12:00 Assessment and Plan Assessment and plan (1) COPD exacerbation: Status: Acute Assessment and plan: Chronic end stage COPD; Acute exacerbatio possible pneumonia Continue IV steroids, oxygen, nebulizers abx Cefepime and Azithromycin IV Takes Prednisone daily Pulmonology consult - see note Continue oral Morphine (2) Anxiety disorder, unspecified: Status: Chronic Assessment and plan: Chronic - Continue Trazadone 150 mg HS Lorazepam PRN (3) Depression, unspecified: Status: Chronic Assessment and plan: Chronic; continue home meds Sertraline 75 mg daily (4) Oxygen dependent: Status: Acute Assessment and plan: Chronic home O2; adjust O2 as needed - does not want to be intubated, reviewed and confirmed, also DNR, OK for BiPap or high flow O2 as needed. Currently on NC 3 LPM and doing well (5) DVT prophylaxis: Status: Acute Assessment and plan: Enoxaparin 40 mg daily (6) Discharge planning issues: Status: Acute Assessment and plan: Home v SNF Out pt Pulmonology referral discussed with Dr Bryson Subjective Subjective Patient reports: no new complaints, tolerating a regular diet, bowel movement and afebrile; denies diarrhea, nausea or vomiting Interval history since last seen: Carina is awake and alert, sitting in the chair. Exam Const General: anxious, frail appearing and ill appearing Orientation: alert, awake and oriented x3 HENMT Head: normal to inspection Ears: external ears normal General nose exam: external nose normal Mouth: moist mucous membranes Eyes General: appearance normal, both eyes and all related structures Neck Neck: normal visual inspection Chest Chest: normal inspection of the chest Resp Auscultation: wheezes expiratory wheezes and scattered wheezes Cardio Jugular venous pressure: no JVD Rate: regular rate Heart Sounds: no murmurs GI Inspection: normal to inspection Auscultation: normal bowel sounds Back/Spine/Pelvis Back: no CVA tenderness Skin General skin exam: no rashes or lesions noted Neuro General: patient alert, patient awake, patient oriented x3 and moves all extremities Extrem General: normal to inspection, full ROM and capillary refill normal Psych Mental Status: mental status grossly normal Objective Last Vital Signs Temp 37.3 C 09/24/22 15:25 Pulse 88 09/24/22 17:07 Resp 16 09/24/22 17:07 BP 116/69 09/24/22 15:25 Pulse Ox 97 09/24/22 17:07 Laboratory Results - last 24 hr 09/24/22 09/24/22 06:00 06:00 WBC 13.16 H RBC 5.00 Hgb 14.4 Hct 44.8 MCV 90 MCH 28.8 MCHC 32.1 RDW 13.5 Plt Count 262 MPV 9.1 Immature Gran % 3.0 Neutrophils % 68.6 Lymphocytes % 19.1 Monocytes % 7.2 Eosinophils % 1.7 Basophils % 0.4 Nucleated RBC % 0.0 Absolute Neutrophils 9.03 H Absolute Lymphocytes 2.51 Absolute Monocytes 0.95 H Absolute Eosinophils 0.22 Absolute Basophils 0.05 Sodium 141 Potassium 4.4 Chloride 107 Carbon Dioxide 26.1 Anion Gap 7.9 BUN 15 Creatinine 0.8 Est GFR (CKD-EPI 2020) 79.22 Glucose 88 Calcium 8.9 Magnesium 2.3 Time Spent with Patient Time Spent with Patient: 25-34 minutes Time was spent: preparing to see the patient(eg.review tests), ordering medications,tests, procedures, referring, communicating with other health cardiac care nurse, indepentently interpreting results, counseling the patient and care coordination
--- NOTE | 2022-09-24 15:23 | PDOC.CMPRO ---
- If Service Date Differs Date of service: 09/24/22 Time of Service: 15:23 Care Management Progress Note S/O: Carina was accepted at [facility] for today, but due to a Covid outbreak, they had to cancel her admission. CM followed up on the referral to [facility], which was Carina's first choice facility, and they offered her a bed for tomorrow. CM discussed this with Carina and Krista, her daughter, and Carina accepted the bed. [facility] was not able to accommodate Carina admitting from the community, therefore she remains at [facility] overnight awaiting admission to SNF tomorrow morning. Her daughter, Krista ([phone]) will transport Carina to the facility, and expects to pick her up between 10:30/11am on 09/25/22. CM asked for a repeat Covid. CM emailed updated PT notes to Zaira, admissions at [facility], at her request. Carina is happy with this discharge plan. CM will continue to follow. A: Carina is a 72 year old female admitted to [facility] on 09/17/22 with community acquired pneumonia, COPD exacerbation. P: Anticipate Carina will go to [facility] tomorrow morning, as planned. Her daughter will transport her via private vehicle. She will follow up with her PCP and discharge plan of care. CM will continue to follow.
--- NOTE | 2022-09-24 16:03 | PHACLINREV_ITS ---
Antibiotic Review - Pharmacy Antibiotic Review Pharmacy Antibiotic Activity: C/S review (BC no growth @ 120 hours), D/C a ntibiotic (Ceftriaxone and azithromycin discontinued, pt. completed 7 days of antibiotics.)
--- NOTE | 2022-09-24 16:03 | PHA.REVIEW2 ---
Antibiotic Review - Pharmacy Antibiotic Review Pharmacy Antibiotic Activity: C/S review (BC no growth @ 120 hours), D/C antibiotic (Ceftriaxone and azithromycin discontinued, pt. completed 7 days of antibiotics.)
[2022-09-24] MEDS: traZODone 100 MG TAB 150 MG PO (21:19)
[2022-09-25 03:47] VITALS: BP 116/69; PULSE 85; RESP 20; TEMP 36.7; O2SAT 92
[2022-09-25 06:00] LABS: Abs Immature Grans 0.39 10^3/uL (0.0-0.06); Absolute Basophil Count 0.07 10^3/uL (0.0-0.2); Absolute Lymphocyte Count 2.06 10^3/uL (1.2-3.4); Absolute Monocyte Count 0.82 10^3/uL (0.1-0.8); Absolute Neutrophil Count 7.88 10^3/uL (1.2-6.7); Basophils % 0.6; Eosinophils % 1.8; HCT 43.4 % (36.0-46.0); Immature Grans % 3.4; MCH 28.9 pg (27.0-33.0); MCHC 32.3 % (32.0-36.0); MCV 90 fL (80-95); MPV 9.1 fL (8.0-11.0); Monocytes % 7.2; Platelet Count 248 10^3/uL (130-400); RBC 4.85 10^6/uL (3.93-5.22); RDW 13.4 % (11.7-14.6); RDW-SD 43.8 fL; WBC 11.42 10^3/uL (4.4-10.8)
[2022-09-25 06:05] LABS: Absolute Eosinophil Count 0.21 10^3/uL (0.0-0.7)
[2022-09-25 06:19] LABS: Anion Gap 4.8 mmol/L (3-11); BUN 13 mg/dL (7-18); CO2 29.2 mmol/L (21.0-32.0); CREATININE 0.6 mg/dL (0.55-1.02); Chloride 107 mmol/L (98-107); Glucose 89 mg/dL (74-106); Magnesium 2.4 mg/dL (1.8-2.4); Potassium 4.3 mmol/L (3.5-5.1); Sodium 141 mmol/L (136-145)
[2022-09-25 07:21] VITALS: BP 132/71; PULSE 82; RESP 19; TEMP 36.8; O2SAT 93
--- NOTE | 2022-09-25 08:03 | PGE_ITS ---
Assessment and Plan Assessment and plan (1) Anxiety with depression: Status: Acute (2) Respiratory failure with hypoxia: Status: Acute (3) Pneumonia: Status: Acute Assessment and plan: This is a 72 year old female admitted for COPD exacerbation after being sent to the ED from first office appointment. She continues to improve. She is also back onto normal nasal cannula. She is someone who frequently exacerbates and has had multiple hospitalizations. I do think she would benefit from either roflumilast or chronic azithromycin. She is open to participating in the RELIANCE trial, so have referred her and we will randomize her to one group and handle one of these prescriptions as an outpatient. I have decreased her prednisone according to the below taper. She is awaiting SNF placement. COPD Exacerbation - continue Symbicort 80 - continue Spiriva respimat - discharge on inhalers above - Continue prednisone taper upon D/C: - 30mg for 3 days, 20mg for 3 days, 10mg for 3 days, 5mg for 3 days - Duonebs QID - prn albuterol - Continue prn ativan/morphine for air hunger or increased WOB. - consider transitioning to PO morphine before discharge to send home with for air hunger - continue PT and ambulation - referred to RELIANCE trial Pneumonia - a/p ceftriaxone and azithromycin - Acapella and IS Hypoxic respiratory failure - 3-4 LPM O2 at baseline - on NC now - not a CO2 retainer General Date Of Service Date of service: 09/25/22 Time of Service: 08:03 Reason for Consult: COPD Exacerbation Subjective Note Note: Carina continues to do well. Exam Narrative Exam Narrative: Gen: NAD, normal respiratory effort, well-nourished HENT: PERRL Chest: No respiratory distress, normal appearance of chest, clear to auscultation bilaterally, no crackles or wheezes, normal inspiratory effort Heart: regular rate and rhythym, no murmurs, rubs or gallops Abdomen: Non-distended, soft, non tender Extremities: No clubbing, edema, cyanosis, rashes Neuro: AAOx3 , non focal Psych: cooperative, appropriate mental affect Objective Last Vital Signs Temp 36.8 C 09/25/22 07:21 Pulse 82 09/25/22 07:21 Resp 19 09/25/22 07:21 BP 132/71 09/25/22 07:21 Pulse Ox 93 09/25/22 07:21 Laboratory Results - last 24 hr 09/25/22 09/25/22 05:40 05:40 WBC 11.42 H RBC 4.85 Hgb 14.0 Hct 43.4 MCV 90 MCH 28.9 MCHC 32.3 RDW 13.4 Plt Count 248 MPV 9.1 Immature Gran % 3.4 Neutrophils % 69.0 Lymphocytes % 18.0 Monocytes % 7.2 Eosinophils % 1.8 Basophils % 0.6 Nucleated RBC % 0.0 Absolute Neutrophils 7.88 H Absolute Lymphocytes 2.06 Absolute Monocytes 0.82 H Absolute Eosinophils 0.21 Absolute Basophils 0.07 Sodium 141 Potassium 4.3 Chloride 107 Carbon Dioxide 29.2 Anion Gap 4.8 BUN 13 Creatinine 0.6 Est GFR (CKD-EPI 2020) 96.50 Glucose 89 Calcium 9.0 Magnesium 2.4 Results Medications Medications: Active Medications Generic Name Dose Route Start Last Admin Trade Name Freq PRN Reason Stop Dose Admin Al Hydrox/Mg Hydrox/Simethicone 30 ml 09/18/22 09:48 Mylanta Suspension 30 Ml Cup PO QID PRN PRN Albuterol Sulfate 2.5 mg 09/17/22 19:54 09/23/22 13:19 Albuterol 2.5 Mg/3 Ml Inh Soln Vial IH 2.5 mg Q1H PRN PRN Administration Albuterol Sulfate 2.5 mg 09/23/22 16:00 09/24/22 19:38 Albuterol 2.5 Mg/3 Ml Inh Soln Vial UPD 2.5 mg QID ALIYAH Administration Bisacodyl 10 mg 09/20/22 16:57 Bisacodyl 10 Mg Supp KS DAILY PRN PRN Budesonide/Formoterol Fumarate 2 puff 09/18/22 20:00 09/24/22 19:36 Budesonide/Formoterol 80/4.5 6.9 Gm 60 Puff Inh IH 2 puffs BID ALIYAH Administration Device 1 each 09/17/22 23:00 Inhaler, Assist Device DIRECTED ALIYAH Docusate Sodium 100 mg 09/23/22 08:30 09/24/22 21:18 Docusate Sodium 100 Mg Cap PO 100 mg BID ALIYAH Administration Enoxaparin Sodium 40 mg 09/18/22 08:30 09/24/22 08:31 Enoxaparin 40 Mg/0.4 Ml Syr SC 40 mg DAILY ALIYAH Administration Fluticasone Propionate 16 gm 09/24/22 08:30 09/24/22 10:19 Fluticasone Nasal [place] 16 Gm Btl NS 4 sprays DAILY ALIYAH Administration Guaifenesin 1,200 mg 09/17/22 20:00 09/24/22 21:18 Guaifenesin 600 Mg Tabcr PO 1,200 mg BID ALIYAH Administration Sodium Chloride 500 mls @ 0 mls/hr 09/17/22 15:00 09/24/22 09:31 Saline 500ml Bag IV 0 mls/hr PRN PRN Infusion As Directed IV Miscellaneous Supplies 1 each 09/17/22 15:00 Iv Access IV DIRECTED ALIYAH Ipratropium Eighty Eight 0.5 mg 09/23/22 16:00 09/24/22 19:37 Ipratropium 0.5 Mg/2.5 Ml Upd Vial UPD 0.5 mg QID ALIYAH Administration Lorazepam 0.5 mg 09/17/22 21:07 09/24/22 21:18 Lorazepam 0.5 Mg Tab PO 0.5 mg TID PRN PRN Administration Montelukast Sodium 10 mg 09/18/22 08:30 09/24/22 08:31 Montelukast 10 Mg Tab PO 10 mg DAILY ALIYAH Administration Morphine Sulfate 10 mg 09/20/22 19:38 09/24/22 12:51 Morphine 10 Mg/5ml Soln. 5ml Cup PO 10 mg Q3H PRN PRN Administration Polyethylene Glycol 17 gm 09/20/22 20:00 09/24/22 21:18 Polyethylene Glycol 3350 17 Gm Packet PO 17 gm BID ALIYAH Administration Prednisone 40 mg 09/18/22 08:30 09/24/22 08:31 Prednisone 20 Mg Tab PO 40 mg DAILY ALIYAH Administration Sertraline HCl 100 mg 09/20/22 08:30 09/24/22 08:31 Sertraline 100 Mg Tab PO 100 mg DAILY ALIYAH Administration Sodium Chloride 0 ml 09/17/22 15:00 09/24/22 08:30 Normal Saline Flush 10 Ml Syr IVP 10 ml PRN PRN Administration Tiotropium Eighty Eight 2 puff 09/19/22 08:30 09/24/22 08:56 Tiotropium Eighty Eight-Respimat 10 Puff Inh IH 2 puffs DAILY ALIYAH Administration Trazodone HCl 150 mg 09/17/22 19:08 09/24/22 21:19 Trazodone 100 Mg Tab PO 150 mg HS PRN PRN Administration Allergies escitalopram [From Lexapro] Allergy (Unknown, Verified 09/17/22 14:53) Nausea Labs 09/25/22 05:40 09/25/22 05:40 Labs: 09/17/22 15:50 Blood Blood Culture - Final NO GROWTH 120 HOURS 09/17/22 15:50 Blood Blood Culture - Final NO GROWTH 120 HOURS Laboratory Tests Range/Units 09/17/22 09/17/22 09/17/22 14:55 14:55 14:55 WBC (4.4-10.8) 10^3/uL 13.19 H RBC (3.93-5.22) 10^6/uL 5.28 H Hgb (11.2-15.7) g/dL 15.0 Hct (36.0-46.0) % 47.5 H MCV (80-95) fL 90 MCH (27.0-33.0) pg 28.4 MCHC (32.0-36.0) % 31.6 L RDW (11.7-14.6) % 13.8 Plt Count (130-400) 10^3/uL 236 MPV (8.0-11.0) fL 8.9 Immature Gran % 0.7 Neutrophils % 86.3 Lymphocytes % 6.4 Monocytes % 6.2 Eosinophils % 0.2 Basophils % 0.2 Nucleated RBC % (0.0-0.3) % 0.0 Absolute Neutrophils (1.2-6.7) 10^3/uL 11.38 H Absolute Lymphocytes (1.2-3.4) 10^3/uL 0.84 L Absolute Monocytes (0.1-0.8) 10^3/uL 0.82 H Absolute Eosinophils (0.0-0.7) 10^3/uL 0.03 Absolute Basophils (0.0-0.2) 10^3/uL 0.03 D-Dimer (<500) ng/mlFEU ABG Sample Site ABG pH (7.35-7.45) ABG pCO2 (35-45) mmHg ABG pO2 (80-105) mmHg ABG HCO3 (22-26) mmol/L ABG Total CO2 (23-27) mmol/L ABG O2 Saturation (95-98) % ABG Base Excess (-2-3) mmol/L VBG pH (7.31-7.41) VBG pCO2 (41-51) mmHg VBG pO2 mmHg VBG HCO3 (23-28) mmol/L VBG Total CO2 (24-29) mmol/L VBG O2 Saturation % VBG Base Excess (-2-3) mmol/L Oxygen Liter Flow L Sodium (136-145) mmol/L 141 Potassium (3.5-5.1) mmol/L 4.2 Chloride (98-107) mmol/L 105 Carbon Dioxide (21.0-32.0) mmol/L 29.0 Anion Gap (3-11) mmol/L 7.0 BUN (7-18) mg/dL 14 Creatinine (0.55-1.02) mg/dL 0.8 Est GFR (CKD-EPI 2020) (mL/min/1.73m2) 79.22 Glucose (74-106) mg/dL 160 H Calcium (8.5-10.1) mg/dL 9.4 Magnesium (1.8-2.4) mg/dL 2.3 Total Bilirubin (0.2-1.0) mg/dL 0.4 AST (15-37) U/L 13 L ALT (14-59) U/L 23 Alkaline Phosphatase (46-116) U/L 93 Troponin I (<or=60) ng/L < 50 C-Reactive Protein (0.0-0.3) mg/dL NT-Pro-B Natriuret Pep (<300) pg/mL 103 Total Protein (6.4-8.2) g/dL 7.2 Albumin (3.4-5.0) g/dL 3.6 Procalcitonin ng/mL < 0.1 COVID-19 Source SARS-CoV-2 (PCR) (Negative) Influenza Type A (PCR) (Negative) Influenza Type B (PCR) (Negative) RSV (PCR) (Negative) Add-On Test Request Range/Units 09/17/22 09/17/22 09/17/22 14:55 15:10 15:30 WBC (4.4-10.8) 10^3/uL RBC (3.93-5.22) 10^6/uL Hgb (11.2-15.7) g/dL Hct (36.0-46.0) % MCV (80-95) fL MCH (27.0-33.0) pg MCHC (32.0-36.0) % RDW (11.7-14.6) % Plt Count (130-400) 10^3/uL MPV (8.0-11.0) fL Immature Gran % Neutrophils % Lymphocytes % Monocytes % Eosinophils % Basophils % Nucleated RBC % (0.0-0.3) % Absolute Neutrophils (1.2-6.7) 10^3/uL Absolute Lymphocytes (1.2-3.4) 10^3/uL Absolute Monocytes (0.1-0.8) 10^3/uL Absolute Eosinophils (0.0-0.7) 10^3/uL Absolute Basophils (0.0-0.2) 10^3/uL D-Dimer (<500) ng/mlFEU ABG Sample Site Right Radial ABG pH (7.35-7.45) 7.43 ABG pCO2 (35-45) mmHg 42 ABG pO2 (80-105) mmHg 95 ABG HCO3 (22-26) mmol/L 28 H ABG Total CO2 (23-27) mmol/L 24 ABG O2 Saturation (95-98) % 98 ABG Base Excess (-2-3) mmol/L 3 VBG pH (7.31-7.41) 7.37 VBG pCO2 (41-51) mmHg 51 VBG pO2 mmHg 49 VBG HCO3 (23-28) mmol/L 29 H VBG Total CO2 (24-29) mmol/L 26 VBG O2 Saturation % 85 VBG Base Excess (-2-3) mmol/L 4 H Oxygen Liter Flow L 3 Sodium (136-145) mmol/L Potassium (3.5-5.1) mmol/L Chloride (98-107) mmol/L Carbon Dioxide (21.0-32.0) mmol/L Anion Gap (3-11) mmol/L BUN (7-18) mg/dL Creatinine (0.55-1.02) mg/dL Est GFR (CKD-EPI 2020) (mL/min/1.73m2) Glucose (74-106) mg/dL Calcium (8.5-10.1) mg/dL Magnesium (1.8-2.4) mg/dL Total Bilirubin (0.2-1.0) mg/dL AST (15-37) U/L ALT (14-59) U/L Alkaline Phosphatase (46-116) U/L Troponin I (<or=60) ng/L C-Reactive Protein (0.0-0.3) mg/dL NT-Pro-B Natriuret Pep (<300) pg/mL Total Protein (6.4-8.2) g/dL Albumin (3.4-5.0) g/dL Procalcitonin ng/mL COVID-19 Source Nasopharynx SARS-CoV-2 (PCR) (Negative) Negative Influenza Type A (PCR) (Negative) Negative Influenza Type B (PCR) (Negative) Negative RSV (PCR) (Negative) Negative Add-On Test Request Range/Units 09/17/22 09/17/22 09/18/22 19:35 19:35 06:20 WBC (4.4-10.8) 10^3/uL RBC (3.93-5.22) 10^6/uL Hgb (11.2-15.7) g/dL Hct (36.0-46.0) % MCV (80-95) fL MCH (27.0-33.0) pg MCHC (32.0-36.0) % RDW (11.7-14.6) % Plt Count (130-400) 10^3/uL MPV (8.0-11.0) fL Immature Gran % Neutrophils % Lymphocytes % Monocytes % Eosinophils % Basophils % Nucleated RBC % (0.0-0.3) % Absolute Neutrophils (1.2-6.7) 10^3/uL Absolute Lymphocytes (1.2-3.4) 10^3/uL Absolute Monocytes (0.1-0.8) 10^3/uL Absolute Eosinophils (0.0-0.7) 10^3/uL Absolute Basophils (0.0-0.2) 10^3/uL D-Dimer (<500) ng/mlFEU ABG Sample Site ABG pH (7.35-7.45) ABG pCO2 (35-45) mmHg ABG pO2 (80-105) mmHg ABG HCO3 (22-26) mmol/L ABG Total CO2 (23-27) mmol/L ABG O2 Saturation (95-98) % ABG Base Excess (-2-3) mmol/L VBG pH (7.31-7.41) 7.41 VBG pCO2 (41-51) mmHg 43 VBG pO2 mmHg 186 VBG HCO3 (23-28) mmol/L 27 VBG Total CO2 (24-29) mmol/L Not Applicable VBG O2 Saturation % > 99 VBG Base Excess (-2-3) mmol/L 3 Oxygen Liter Flow L Sodium (136-145) mmol/L 143 Potassium (3.5-5.1) mmol/L 4.6 Chloride (98-107) mmol/L 109 H Carbon Dioxide (21.0-32.0) mmol/L 28.8 Anion Gap (3-11) mmol/L 5.2 BUN (7-18) mg/dL 16 Creatinine (0.55-1.02) mg/dL 0.8 Est GFR (CKD-EPI 2020) (mL/min/1.73m2) 79.22 Glucose (74-106) mg/dL 144 H Calcium (8.5-10.1) mg/dL 8.5 Magnesium (1.8-2.4) mg/dL 2.5 H Total Bilirubin (0.2-1.0) mg/dL AST (15-37) U/L ALT (14-59) U/L Alkaline Phosphatase (46-116) U/L Troponin I (<or=60) ng/L < 50 C-Reactive Protein (0.0-0.3) mg/dL 1.38 H NT-Pro-B Natriuret Pep (<300) pg/mL Total Protein (6.4-8.2) g/dL Albumin (3.4-5.0) g/dL Procalcitonin ng/mL COVID-19 Source SARS-CoV-2 (PCR) (Negative) Influenza Type A (PCR) (Negative) Influenza Type B (PCR) (Negative) RSV (PCR) (Negative) Add-On Test Request Range/Units 09/18/22 09/18/22 09/18/22 06:20 07:37 07:55 WBC (4.4-10.8) 10^3/uL 8.25 RBC (3.93-5.22) 10^6/uL 4.61 Hgb (11.2-15.7) g/dL 13.3 Hct (36.0-46.0) % 41.3 MCV (80-95) fL 90 MCH (27.0-33.0) pg 28.9 MCHC (32.0-36.0) % 32.2 RDW (11.7-14.6) % 13.9 Plt Count (130-400) 10^3/uL 209 MPV (8.0-11.0) fL 9.2 Immature Gran % 0.7 Neutrophils % 86.9 Lymphocytes % 7.6 Monocytes % 4.7 Eosinophils % 0.0 Basophils % 0.1 Nucleated RBC % (0.0-0.3) % 0.0 Absolute Neutrophils (1.2-6.7) 10^3/uL 7.16 H Absolute Lymphocytes (1.2-3.4) 10^3/uL 0.63 L Absolute Monocytes (0.1-0.8) 10^3/uL 0.39 Absolute Eosinophils (0.0-0.7) 10^3/uL 0.00 Absolute Basophils (0.0-0.2) 10^3/uL 0.01 D-Dimer (<500) ng/mlFEU 1130 H ABG Sample Site ABG pH (7.35-7.45) ABG pCO2 (35-45) mmHg ABG pO2 (80-105) mmHg ABG HCO3 (22-26) mmol/L ABG Total CO2 (23-27) mmol/L ABG O2 Saturation (95-98) % ABG Base Excess (-2-3) mmol/L VBG pH (7.31-7.41) VBG pCO2 (41-51) mmHg VBG pO2 mmHg VBG HCO3 (23-28) mmol/L VBG Total CO2 (24-29) mmol/L VBG O2 Saturation % VBG Base Excess (-2-3) mmol/L Oxygen Liter Flow L Sodium (136-145) mmol/L Potassium (3.5-5.1) mmol/L Chloride (98-107) mmol/L Carbon Dioxide (21.0-32.0) mmol/L Anion Gap (3-11) mmol/L BUN (7-18) mg/dL Creatinine (0.55-1.02) mg/dL Est GFR (CKD-EPI 2020) (mL/min/1.73m2) Glucose (74-106) mg/dL Calcium (8.5-10.1) mg/dL Magnesium (1.8-2.4) mg/dL Total Bilirubin (0.2-1.0) mg/dL AST (15-37) U/L ALT (14-59) U/L Alkaline Phosphatase (46-116) U/L Troponin I (<or=60) ng/L C-Reactive Protein (0.0-0.3) mg/dL NT-Pro-B Natriuret Pep (<300) pg/mL Total Protein (6.4-8.2) g/dL Albumin (3.4-5.0) g/dL Procalcitonin ng/mL COVID-19 Source SARS-CoV-2 (PCR) (Negative) Influenza Type A (PCR) (Negative) Influenza Type B (PCR) (Negative) RSV (PCR) (Negative) Add-On Test Request DONE Range/Units 09/20/22 09/20/22 09/20/22 06:04 06:04 07:42 WBC (4.4-10.8) 10^3/uL 7.48 RBC (3.93-5.22) 10^6/uL 4.87 Hgb (11.2-15.7) g/dL 14.1 Hct (36.0-46.0) % 43.4 MCV (80-95) fL 89 MCH (27.0-33.0) pg 29.0 MCHC (32.0-36.0) % 32.5 RDW (11.7-14.6) % 13.9 Plt Count (130-400) 10^3/uL 168 MPV (8.0-11.0) fL Immature Gran % 1.5 Neutrophils % 59.2 Lymphocytes % 26.3 Monocytes % 9.1 Eosinophils % 3.5 Basophils % 0.4 Nucleated RBC % (0.0-0.3) % 0.0 Absolute Neutrophils (1.2-6.7) 10^3/uL 4.43 Absolute Lymphocytes (1.2-3.4) 10^3/uL 1.97 Absolute Monocytes (0.1-0.8) 10^3/uL 0.68 Absolute Eosinophils (0.0-0.7) 10^3/uL 0.26 Absolute Basophils (0.0-0.2) 10^3/uL 0.03 D-Dimer (<500) ng/mlFEU ABG Sample Site ABG pH (7.35-7.45) ABG pCO2 (35-45) mmHg ABG pO2 (80-105) mmHg ABG HCO3 (22-26) mmol/L ABG Total CO2 (23-27) mmol/L ABG O2 Saturation (95-98) % ABG Base Excess (-2-3) mmol/L VBG pH (7.31-7.41) VBG pCO2 (41-51) mmHg VBG pO2 mmHg VBG HCO3 (23-28) mmol/L VBG Total CO2 (24-29) mmol/L VBG O2 Saturation % VBG Base Excess (-2-3) mmol/L Oxygen Liter Flow L Sodium (136-145) mmol/L Cancelled 141 Potassium (3.5-5.1) mmol/L Cancelled 3.8 Chloride (98-107) mmol/L Cancelled 107 Carbon Dioxide (21.0-32.0) mmol/L Cancelled 30.3 Anion Gap (3-11) mmol/L Cancelled 3.7 BUN (7-18) mg/dL Cancelled 13 Creatinine (0.55-1.02) mg/dL Cancelled 0.6 Est GFR (CKD-EPI 2020) (mL/min/1.73m2) Cancelled 96.50 Glucose (74-106) mg/dL Cancelled 89 Calcium (8.5-10.1) mg/dL Cancelled 8.6 Magnesium (1.8-2.4) mg/dL Cancelled 2.1 Total Bilirubin (0.2-1.0) mg/dL AST (15-37) U/L ALT (14-59) U/L Alkaline Phosphatase (46-116) U/L Troponin I (<or=60) ng/L C-Reactive Protein (0.0-0.3) mg/dL NT-Pro-B Natriuret Pep (<300) pg/mL Total Protein (6.4-8.2) g/dL Albumin (3.4-5.0) g/dL Procalcitonin ng/mL COVID-19 Source SARS-CoV-2 (PCR) (Negative) Influenza Type A (PCR) (Negative) Influenza Type B (PCR) (Negative) RSV (PCR) (Negative) Add-On Test Request Range/Units 09/21/22 09/21/22 09/22/22 06:15 06:15 07:02 WBC (4.4-10.8) 10^3/uL 10.51 RBC (3.93-5.22) 10^6/uL 5.37 H Hgb (11.2-15.7) g/dL 15.2 Hct (36.0-46.0) % 47.2 H MCV (80-95) fL 88 MCH (27.0-33.0) pg 28.3 MCHC (32.0-36.0) % 32.2 RDW (11.7-14.6) % 13.4 Plt Count (130-400) 10^3/uL 249 MPV (8.0-11.0) fL 8.9 Immature Gran % 2.9 Neutrophils % 59.6 Lymphocytes % 25.2 Monocytes % 8.1 Eosinophils % 3.4 Basophils % 0.8 Nucleated RBC % (0.0-0.3) % 0.0 Absolute Neutrophils (1.2-6.7) 10^3/uL 6.26 Absolute Lymphocytes (1.2-3.4) 10^3/uL 2.65 Absolute Monocytes (0.1-0.8) 10^3/uL 0.85 H Absolute Eosinophils (0.0-0.7) 10^3/uL 0.36 Absolute Basophils (0.0-0.2) 10^3/uL 0.08 D-Dimer (<500) ng/mlFEU ABG Sample Site ABG pH (7.35-7.45) ABG pCO2 (35-45) mmHg ABG pO2 (80-105) mmHg ABG HCO3 (22-26) mmol/L ABG Total CO2 (23-27) mmol/L ABG O2 Saturation (95-98) % ABG Base Excess (-2-3) mmol/L VBG pH (7.31-7.41) VBG pCO2 (41-51) mmHg VBG pO2 mmHg VBG HCO3 (23-28) mmol/L VBG Total CO2 (24-29) mmol/L VBG O2 Saturation % VBG Base Excess (-2-3) mmol/L Oxygen Liter Flow L Sodium (136-145) mmol/L 137 142 Potassium (3.5-5.1) mmol/L 3.5 4.1 Chloride (98-107) mmol/L 100 105 Carbon Dioxide (21.0-32.0) mmol/L 32.1 H 31.1 Anion Gap (3-11) mmol/L 4.9 5.9 BUN (7-18) mg/dL 16 17 Creatinine (0.55-1.02) mg/dL 0.8 0.8 Est GFR (CKD-EPI 2020) (mL/min/1.73m2) 79.22 79.22 Glucose (74-106) mg/dL 87 100 Calcium (8.5-10.1) mg/dL 9.2 9.4 Magnesium (1.8-2.4) mg/dL 2.2 2.3 Total Bilirubin (0.2-1.0) mg/dL AST (15-37) U/L ALT (14-59) U/L Alkaline Phosphatase (46-116) U/L Troponin I (<or=60) ng/L C-Reactive Protein (0.0-0.3) mg/dL 0.14 NT-Pro-B Natriuret Pep (<300) pg/mL Total Protein (6.4-8.2) g/dL Albumin (3.4-5.0) g/dL Procalcitonin ng/mL COVID-19 Source SARS-CoV-2 (PCR) (Negative) Influenza Type A (PCR) (Negative) Influenza Type B (PCR) (Negative) RSV (PCR) (Negative) Add-On Test Request Range/Units 09/22/22 09/23/22 09/23/22 07:02 05:50 05:50 WBC (4.4-10.8) 10^3/uL 11.14 H 10.18 RBC (3.93-5.22) 10^6/uL 5.78 H 4.92 Hgb (11.2-15.7) g/dL 16.2 H 14.5 Hct (36.0-46.0) % 51.1 H 44.1 MCV (80-95) fL 88 90 MCH (27.0-33.0) pg 28.0 29.5 MCHC (32.0-36.0) % 31.7 L 32.9 RDW (11.7-14.6) % 13.6 13.7 Plt Count (130-400) 10^3/uL 253 254 MPV (8.0-11.0) fL 8.9 9.2 Immature Gran % 3.5 4.1 Neutrophils % 62.4 62.8 Lymphocytes % 22.8 22.1 Monocytes % 7.2 7.6 Eosinophils % 3.3 2.7 Basophils % 0.8 0.7 Nucleated RBC % (0.0-0.3) % 0.0 0.0 Absolute Neutrophils (1.2-6.7) 10^3/uL 6.95 H 6.40 Absolute Lymphocytes (1.2-3.4) 10^3/uL 2.54 2.25 Absolute Monocytes (0.1-0.8) 10^3/uL 0.80 0.77 Absolute Eosinophils (0.0-0.7) 10^3/uL 0.37 0.27 Absolute Basophils (0.0-0.2) 10^3/uL 0.09 0.07 D-Dimer (<500) ng/mlFEU ABG Sample Site ABG pH (7.35-7.45) ABG pCO2 (35-45) mmHg ABG pO2 (80-105) mmHg ABG HCO3 (22-26) mmol/L ABG Total CO2 (23-27) mmol/L ABG O2 Saturation (95-98) % ABG Base Excess (-2-3) mmol/L VBG pH (7.31-7.41) VBG pCO2 (41-51) mmHg VBG pO2 mmHg VBG HCO3 (23-28) mmol/L VBG Total CO2 (24-29) mmol/L VBG O2 Saturation % VBG Base Excess (-2-3) mmol/L Oxygen Liter Flow L Sodium (136-145) mmol/L 143 Potassium (3.5-5.1) mmol/L 4.1 Chloride (98-107) mmol/L 108 H Carbon Dioxide (21.0-32.0) mmol/L 28.8 Anion Gap (3-11) mmol/L 6.2 BUN (7-18) mg/dL 18 Creatinine (0.55-1.02) mg/dL 0.7 Est GFR (CKD-EPI 2020) (mL/min/1.73m2) 92.98 Glucose (74-106) mg/dL 88 Calcium (8.5-10.1) mg/dL 8.8 Magnesium (1.8-2.4) mg/dL 2.3 Total Bilirubin (0.2-1.0) mg/dL AST (15-37) U/L ALT (14-59) U/L Alkaline Phosphatase (46-116) U/L Troponin I (<or=60) ng/L C-Reactive Protein (0.0-0.3) mg/dL NT-Pro-B Natriuret Pep (<300) pg/mL Total Protein (6.4-8.2) g/dL Albumin (3.4-5.0) g/dL Procalcitonin ng/mL COVID-19 Source SARS-CoV-2 (PCR) (Negative) Influenza Type A (PCR) (Negative) Influenza Type B (PCR) (Negative) RSV (PCR) (Negative) Add-On Test Request Range/Units 09/24/22 09/24/22 09/25/22 06:00 06:00 05:40 WBC (4.4-10.8) 10^3/uL 13.16 H RBC (3.93-5.22) 10^6/uL 5.00 Hgb (11.2-15.7) g/dL 14.4 Hct (36.0-46.0) % 44.8 MCV (80-95) fL 90 MCH (27.0-33.0) pg 28.8 MCHC (32.0-36.0) % 32.1 RDW (11.7-14.6) % 13.5 Plt Count (130-400) 10^3/uL 262 MPV (8.0-11.0) fL 9.1 Immature Gran % 3.0 Neutrophils % 68.6 Lymphocytes % 19.1 Monocytes % 7.2 Eosinophils % 1.7 Basophils % 0.4 Nucleated RBC % (0.0-0.3) % 0.0 Absolute Neutrophils (1.2-6.7) 10^3/uL 9.03 H Absolute Lymphocytes (1.2-3.4) 10^3/uL 2.51 Absolute Monocytes (0.1-0.8) 10^3/uL 0.95 H Absolute Eosinophils (0.0-0.7) 10^3/uL 0.22 Absolute Basophils (0.0-0.2) 10^3/uL 0.05 D-Dimer (<500) ng/mlFEU ABG Sample Site ABG pH (7.35-7.45) ABG pCO2 (35-45) mmHg ABG pO2 (80-105) mmHg ABG HCO3 (22-26) mmol/L ABG Total CO2 (23-27) mmol/L ABG O2 Saturation (95-98) % ABG Base Excess (-2-3) mmol/L VBG pH (7.31-7.41) VBG pCO2 (41-51) mmHg VBG pO2 mmHg VBG HCO3 (23-28) mmol/L VBG Total CO2 (24-29) mmol/L VBG O2 Saturation % VBG Base Excess (-2-3) mmol/L Oxygen Liter Flow L Sodium (136-145) mmol/L 141 141 Potassium (3.5-5.1) mmol/L 4.4 4.3 Chloride (98-107) mmol/L 107 107 Carbon Dioxide (21.0-32.0) mmol/L 26.1 29.2 Anion Gap (3-11) mmol/L 7.9 4.8 BUN (7-18) mg/dL 15 13 Creatinine (0.55-1.02) mg/dL 0.8 0.6 Est GFR (CKD-EPI 2020) (mL/min/1.73m2) 79.22 96.50 Glucose (74-106) mg/dL 88 89 Calcium (8.5-10.1) mg/dL 8.9 9.0 Magnesium (1.8-2.4) mg/dL 2.3 2.4 Total Bilirubin (0.2-1.0) mg/dL AST (15-37) U/L ALT (14-59) U/L Alkaline Phosphatase (46-116) U/L Troponin I (<or=60) ng/L C-Reactive Protein (0.0-0.3) mg/dL NT-Pro-B Natriuret Pep (<300) pg/mL Total Protein (6.4-8.2) g/dL Albumin (3.4-5.0) g/dL Procalcitonin ng/mL COVID-19 Source SARS-CoV-2 (PCR) (Negative) Influenza Type A (PCR) (Negative) Influenza Type B (PCR) (Negative) RSV (PCR) (Negative) Add-On Test Request Range/Units 09/25/22 05:40 WBC (4.4-10.8) 10^3/uL 11.42 H RBC (3.93-5.22) 10^6/uL 4.85 Hgb (11.2-15.7) g/dL 14.0 Hct (36.0-46.0) % 43.4 MCV (80-95) fL 90 MCH (27.0-33.0) pg 28.9 MCHC (32.0-36.0) % 32.3 RDW (11.7-14.6) % 13.4 Plt Count (130-400) 10^3/uL 248 MPV (8.0-11.0) fL 9.1 Immature Gran % 3.4 Neutrophils % 69.0 Lymphocytes % 18.0 Monocytes % 7.2 Eosinophils % 1.8 Basophils % 0.6 Nucleated RBC % (0.0-0.3) % 0.0 Absolute Neutrophils (1.2-6.7) 10^3/uL 7.88 H Absolute Lymphocytes (1.2-3.4) 10^3/uL 2.06 Absolute Monocytes (0.1-0.8) 10^3/uL 0.82 H Absolute Eosinophils (0.0-0.7) 10^3/uL 0.21 Absolute Basophils (0.0-0.2) 10^3/uL 0.07 D-Dimer (<500) ng/mlFEU ABG Sample Site ABG pH (7.35-7.45) ABG pCO2 (35-45) mmHg ABG pO2 (80-105) mmHg ABG HCO3 (22-26) mmol/L ABG Total CO2 (23-27) mmol/L ABG O2 Saturation (95-98) % ABG Base Excess (-2-3) mmol/L VBG pH (7.31-7.41) VBG pCO2 (41-51) mmHg VBG pO2 mmHg VBG HCO3 (23-28) mmol/L VBG Total CO2 (24-29) mmol/L VBG O2 Saturation % VBG Base Excess (-2-3) mmol/L Oxygen Liter Flow L Sodium (136-145) mmol/L Potassium (3.5-5.1) mmol/L Chloride (98-107) mmol/L Carbon Dioxide (21.0-32.0) mmol/L Anion Gap (3-11) mmol/L BUN (7-18) mg/dL Creatinine (0.55-1.02) mg/dL Est GFR (CKD-EPI 2020) (mL/min/1.73m2) Glucose (74-106) mg/dL Calcium (8.5-10.1) mg/dL Magnesium (1.8-2.4) mg/dL Total Bilirubin (0.2-1.0) mg/dL AST (15-37) U/L ALT (14-59) U/L Alkaline Phosphatase (46-116) U/L Troponin I (<or=60) ng/L C-Reactive Protein (0.0-0.3) mg/dL NT-Pro-B Natriuret Pep (<300) pg/mL Total Protein (6.4-8.2) g/dL Albumin (3.4-5.0) g/dL Procalcitonin ng/mL COVID-19 Source SARS-CoV-2 (PCR) (Negative) Influenza Type A (PCR) (Negative) Influenza Type B (PCR) (Negative) RSV (PCR) (Negative) Add-On Test Request
[2022-09-25] MEDS: Sertraline 100 MG TAB PO (08:19)
[2022-09-25] MEDS: Enoxaparin 40 MG/0.4 ML SYR SC (08:19)
[2022-09-25] MEDS: Polyethylene Glycol 3350 17 GM PACKET PO (08:19)
[2022-09-25] MEDS: guaiFENesin 600 MG TABCR 1200 MG PO (08:19)
[2022-09-25] MEDS: Docusate Sodium 100 MG CAP PO (08:19)
[2022-09-25] MEDS: Montelukast 10 MG TAB PO (08:19)
[2022-09-25] MEDS: predniSONE 20 MG TAB 30 MG PO (08:39)
[2022-09-25 08:41] VITALS: PULSE 96; RESP 1; RESP 20; RESP 8; O2SAT 94
[2022-09-25] MEDS: Budesonide/Formoterol 80/4.5 6.9 GM 60 PUFF INH IH (08:41)
[2022-09-25] MEDS: Ipratropium 0.5 MG/2.5 ML UPD VIAL UPD (08:41)
[2022-09-25] MEDS: Tiotropium Bromide-Respimat 10 PUFF INH 2 PUFF IH (08:41)
--- NOTE | 2022-09-25 08:45 | CMDISCH_ITS ---
- If Service Date Differs Date of service: 09/25/22 Time of Service: 08:45 LACE Index Scoring Tool - Questions: Length of Stay (in days): 7 - 13 Acuity (Admit via E.D.?): Yes E.D. Visits: 1 - Answers: Total Score: 9 Risk of Readmission: Low Risk Care Management Discharge Reason for Hospitalization: Community acquired pneumonia, exacerbation of COPD Discharge Plan: [facility], prior to discharging home with her daughter. She is driven via private vehicle with daughter. Carina will follow up with community providers and discharge plan of care as prescribed. Patient/Family Education Needs: Review discharge instructions, limitations and plan to follow up with community providers. Discuss ask me three. Services Needed at Discharge: Correction Facility ([facility])
[2022-09-25] MEDS: Albuterol 2.5 MG/3 ML INH SOLN VIAL UPD (08:46)
[2022-09-25 09:15] LABS: COVID-19 PCR Negative (Negative); Source Nasal/Nares
--- NOTE | 2022-09-25 09:36 | W.PM.DS.N ---
Date of service: 09/25/22 Time of Service: 09:36 DS: Diagnosis Discharge Diagnosis (1) Anxiety with depression: Status: Acute (2) Respiratory failure with hypoxia: Status: Acute (3) COPD exacerbation: Status: Acute Discharge Plan Disposition Patient Disposition: Longterm Facility(SNF) Condition: Stable Discharge Details Reason For Visit: Community Acquired Pneumonia,Exacerbation of COPD Admit Date/Time: 09/17/22 16:16 Admit Provider: Tiburcio Alexis Attending Provider: Tiburcio Alexis Primary Care Provider: Yang Burgos Hospital Course Hospital Course: this is a 72 year old female with history of COPD who was admitted for inpatient treatment after being seen in pulmonary office with exacerbation and increased oxygen requirements. Initially she was treated with IV steroids and antibiotics but then downstepped to oral. Pulmonary followed while hospitalized and will discharge with the following recommendations: - continue Symbicort 80 - continue Spiriva respimat - discharge on inhalers above - Continue prednisone taper upon D/C: - 30mg for 3 days, 20mg for 3 days, 10mg for 3 days, 5mg for 3 days - Duonebs QID - prn albuterol - Continue prn ativan/morphine for air hunger or increased WOB. - consider transitioning to PO morphine before discharge to send home with for air hunger - continue PT and ambulation - referred to [facility] She is now medically stable and will be discharged to snf facility in [facility]. discharge discussed with Dr Bryson. Home Meds and New Rx's Prescriptions: New lorazepam 0.5 mg Tablet 0.5 mg PO TID PRN PRNQty: 0 0RF alum-mag hydroxide-simeth [Mag-Al Plus] 200-200-20 mg/5 mL Suspension 30 ml PO QID PRN PRNQty: 0 0RF morphine 10 mg/5 mL Solution 10 mg PO Q3H PRN PRNQty: 60 0RF budesonide-formoterol [Symbicort] 80-4.5 mcg/actuation Hfa Aerosol Inhaler 2 puff inhalation BID Qty: 10.2 0RF ipratropium-albuterol 0.5 mg-3 mg(2.5 mg base)/3 mL solution for nebulization 3 ml inhalation QID Qty: 90 0RF Continued albuterol sulfate 2.5 mg /3 mL (0.083 %) solution for nebulization 2.5 mg inhalation Q6H PRN albuterol sulfate 90 mcg/actuation HFA aerosol inhaler See Rx Instructions inhalation DIRECTED Rx Instructions: inhaled as directed; montelukast 10 mg tablet 10 mg PO DAILY Mucinex 1,200 mg tablet extended release 12hr 1,200 mg PO BID Spiriva with HandiHaler 18 mcg capsule, w/inhalation device 1 cap inhalation DAILY Rx Instructions: puncture 1 cap using device; one dose = 2 inhalations trazodone 150 mg tablet 150 mg PO QHS PRN Changed prednisone 20 mg tablet 30 mg PO DAILY Qty: 0 0RF Rx Instructions: Take 2 tablets by mouth daily for 5 days sertraline 25 mg tablet 100 mg PO DAILY Qty: 0 0RF Discontinued budesonide-formoterol [Symbicort] 160-4.5 mcg/actuation Hfa Aerosol Inhaler 2 puff INHALATION Q12H No Action prednisone 5 mg tablet 10 mg PO DAILY Discharge Instructions Instructions: COPD (Chronic Obstructive Pulmonary Disease) (DC) Additional Instructions: - continue Symbicort 80 - continue Spiriva respimat - discharge on inhalers above - Continue prednisone taper upon D/C: - 30mg for 3 days, 20mg for 3 days, 10mg for 3 days, 5mg for 3 days - Duonebs QID - prn albuterol - Continue prn ativan/morphine for air hunger or increased WOB. - consider transitioning to PO morphine before discharge to send home with for air hunger - continue PT and ambulation - referred to [facility] trial Stand Alone Forms: Nursing Discharge Form Referrals: Francheska Ramirez MD [ [facility] STAFF PHYSICIAN] - Activity:: Activity as Tolerated Equipment/Supplies:: No Equipment Needed Diet:: As Tolerated Discharge Orders Discharge Orders: Discharge Order (Routine); Ordered 09/25/22 Ordered By: Darline Erickson DS: Summary Time Spent with Patient providing and/or coordinating discharge services: Greater than 30 minutes Status at Discharge Functional status at discharge: uses cane/walker Overall status at discharge: patient is progressing back to baseline Mental Status: mental status grossly normal Speech and Movement: speech and movement normal Mood: congruent mood Affect: normal affect Exam Const General: anxious, frail appearing and ill appearing Orientation: alert, awake and oriented x3 HENMT Head: normal to inspection Ears: external ears normal General nose exam: external nose normal Mouth: moist mucous membranes Eyes General: appearance normal, both eyes and all related structures Neck Neck: normal visual inspection Chest Chest: normal inspection of the chest Resp Auscultation: wheezes expiratory wheezes and scattered wheezes Cardio Rate: regular rate GI Inspection: normal to inspection Auscultation: normal bowel sounds Skin General skin exam: no rashes or lesions noted Neuro General: patient alert, patient awake, patient oriented x3 and moves all extremities Extrem General: normal to inspection and full ROM Psych Mental Status: mental status grossly normal Speech and Movement: speech and movement normal Mood: congruent mood Affect: normal affect DS: Data Vitals/I&O Vitals and I&O: Vital Signs Temperature 36.8 C 09/25/22 07:21 Temperature Source Tympanic 09/25/22 07:21 Pulse 96 H 09/25/22 08:41 Pulse Rhythm Regular 09/24/22 21:30 Pulse 99 H 09/17/22 16:46 Respiratory Rate 20 09/25/22 08:41 Respiratory Effort Short of Breath, Labored 09/24/22 21:30 Respiratory Depth Deep 09/24/22 21:30 Respiratory Pattern Tachypnea 09/24/22 21:30 Blood Pressure 132/71 09/25/22 07:21 Blood Pressure Mean 84 09/17/22 16:46 Blood Pressure Position Sitting 09/17/22 14:49 Pulse Oximetry 94 09/25/22 08:41 Oxygen Delivery Method Nasal Cannula 09/25/22 08:41 Oxygen Flow Rate 1 09/25/22 08:41 Fraction of Inspired Oxygen (FIO2) 40 09/19/22 16:15 Pain Level 0 09/25/22 08:17 Comment Pt. denies pain at this time. 09/25/22 08:17 Intake & Output 09/24/22 09/24/22 09/25/22 11:59 23:59 11:59 Intake Total 581.667 / 6757.568 8170 / 1591.667 Output Total 1150 / 1550 400 / 1550 500 / 500 Balance -568.333 / 41.667 610 / 41.667 -500 / -500 Intake: IV 111.667 / 161.667 50 / 161.667 Oral 470 / 1430 960 / 1430 Output: Urine 1150 / 1550 400 / 1550 500 / 500 Other: Urine Color Yellow Yellow Yellow Urine Appearance Clear Clear Urine Odor None Comment mixed with stool Stool Size Moderate Small Moderate Stool Characteristics Soft Soft Soft Formed Formed Brown Brown Voiding Methods Bedside Commode Bedside Commode Data Completed and Pending Labs on day of discharge: Labs from last 24 hours 09/25/22 09/25/22 09/25/22 18:38 05:40 05:40 WBC 11.42 H RBC 4.85 Hgb 14.0 Hct 43.4 MCV 90 MCH 28.9 MCHC 32.3 RDW 13.4 Plt Count 248 MPV 9.1 Immature Gran % 3.4 Neutrophils % 69.0 Lymphocytes % 18.0 Monocytes % 7.2 Eosinophils % 1.8 Basophils % 0.6 Nucleated RBC % 0.0 Absolute Neutrophils 7.88 H Absolute Lymphocytes 2.06 Absolute Monocytes 0.82 H Absolute Eosinophils 0.21 Absolute Basophils 0.07 Sodium 141 Potassium 4.3 Chloride 107 Carbon Dioxide 29.2 Anion Gap 4.8 BUN 13 Creatinine 0.6 Est GFR (CKD-EPI 2020) 96.50 Glucose 89 Calcium 9.0 Magnesium 2.4 COVID-19 Source Nasal/Nares SARS-CoV-2 (PCR) Negative PFSH All Active Problems (Updated 09/18/22 @ 20:31 by Bri Hernández MD) Anxiety with depression (Acute) Advanced care planning/counseling discussion (Acute) Palliative care patient (Acute) Respiratory failure with hypoxia (Acute) Pneumonia (Acute) Discharge planning issues (Acute) DVT prophylaxis (Acute) COPD exacerbation (Acute) Anxiety disorder, unspecified (Chronic) Depression, unspecified (Chronic) Oxygen dependent (Acute) Diabetes (Chronic) COPD (chronic obstructive pulmonary disease) (Chronic) Medical History (Updated 09/18/22 @ 20:31 by Bri Hernández MD) Left breast lump Surgical History (Updated 07/13/22 @ 13:42 by Erna Gan) Cataract Family History (Updated 07/18/22 @ 11:20 by Aury Alcantara RN, RN) Father Cancer Brother Heart disease Heart attack Mother Heart disease Social History (Updated 07/18/22 @ 11:19 by Aury Alcantara RN, RN) Smoking/Tobacco Use Status: Former Tobacco Use Quit Date: 07/01/18 Tobacco: How many years used: 42 Smoking risk assessment performed?: Yes Alcohol Intake: never Drug use: Never Substance use type: does not use Time Spent with Patient Time Spent with Patient: 45-69 minutes Time was spent: preparing to see the patient(eg.review tests), ordering medications,tests, procedures and care coordination
--- NOTE | 2022-09-27 16:54 | INDS_ITS ---
Date of service: 09/24/22 PT Notes Visit Reasons: Community Acquired Pneumonia,Exacerbation of COPD Physical Therapy Inpatient Discharge Summary Date: 09/24/2022 Dates of service: 09/21/2022 through 09/24/2022 This is a clinical summary of care provided for the duration of dates listed above. No charge was made in the completion of this documentation. Referring Doctor:Pablo Graham,? CHIEF CONTRACT OFFICER PT Orders: PT CONSULT: Eval/Treat Precautions: Fall. Standard. Activity as tolerated. Patient Profile/Admitting Diagnosis:? Patient is a 72-year-old female who presented to the ED on 09/17/2022 due to slowly worsening shortness of breath.? Patient is diagnosed with COPD exacerbati on, anxiety, depression, oxygen dependence, respiratory failure with hypoxia, and pneumonia. PMHX: All Active Problems?(Updated 09/17/22 @ 22:38 by Carina Graham NP) Discharge planning issues (Acute) DVT prophylaxis (Acute) COPD exacerbation (Acute) Anxiety disorder, unspecified (Chronic) Depression, unspecified (Chronic) Oxygen dependent (Acute) Diabetes (Chronic) COPD (chronic obstructive pulmonary disease) (Chronic) Medical History?(Updated 09/17/22 @ 22:38 by Carina Graham NP) Left breast lump Surgical History?(Updated 07/13/22 @ 13:42 by Erna Gan) Cataract Social History/Home Situation: Lives with sister in a private home prior to admission but patient is planning on going to daughter's house whenever safe to go home as sister is currently sick.? Independent with all aspects of ADLs prior to surgery. Equipment Owned/DME: None Subjective: NT. See most recent CHUCKING AND SAWING MACHINE OPERATOR notes. Objective: General Observation: NT. See most recent CHUCKING AND SAWING MACHINE OPERATOR notes. Mental Status: NT. See most recent CHUCKING AND SAWING MACHINE OPERATOR notes. Pain: NT. See most recent CHUCKING AND SAWING MACHINE OPERATOR notes. Vital Signs: NT. See most recent CHUCKING AND SAWING MACHINE OPERATOR notes. ROM: Right Upper Extremity: ? Shoulder Flexion WFL. Shoulder abduction WFL. Elbow flexion WFL. Wrist flexion WFL. Functional opening and closing of hand WFL. Left Upper Extremity:? Shoulder Flexion WFL. Shoulder abduction WFL. Elbow flexion WFL. Wrist flexion WFL. Functional opening and closing of hand WFL. Right Lower Extremity: Hip flexion WFL. Hip abduction WFL. Knee flexion WFL. Ankle dorsiflexion WFL. Ankle plantarflexion WFL. Left Lower Extremity: Hip flexion WFL. Hip abduction WFL. Knee flexion WFL. Ankle dorsiflexion WFL. Ankle plantarflexion WFL. Strength: Right Upper Extremity: Shoulder flexors 4-/5. Shoulder abductors 4-/5. Elbow flexors 4-/5. Elbow extensors 4-/5. Slubber Runner strong. Left Upper Extremity: Shoulder flexors 4-/5. Shoulder abductors 4-/5. Elbow flexors 4-/5. Elbow extensors 4-/5. Slubber Runner strong. Right Lower Extremity: Hip flexors 3+/5. Hip abductors 3+/5. Knee flexors 4-/5. Knee extensors 4-/5. Ankle dorsiflexors 4-/5. Ankle plantarflexors 4-/5. Left Lower Extremity: Hip flexors 3+/5. Hip abductors 3+/5. Knee flexors 4-/5. Knee extensors 4-/5. Ankle dorsiflexors 4-/5. Ankle plantarflexors 4-/5. BED MOBILITY/TRANSFERS? Supine-sit: I with HOB at 50 degrees ? Sit-supine: I with HOB at 50 degrees? Sit-stand: SBA? Stand-sit: SBA ? Bed-Chair: SBA? GAIT? Assistive Device: FWW? Weight bearing: Full Assist: SBA ? Distance:? 10' in a.m.; 20' x 3 in p.m. ? Deviation: Slow pacing, SOB, seated rest x2 Balance: Static Sitting: Normal Dynamic Sitting: Normal Static Standing: Fair Dynamic Standing: Fair Assessment: Patient presents with functional mobility decline requiring use of FWW and contact guard/minimal assist for all mobility ADL performance.? Patient presents with clinical signs and symptoms consistent with current/admitting diagnoses that have resulted to mobility limitations, gait instability, generalized weakness, and overall ADL decline as demonstrated by the following impairment level findings: 1.? Decreased strength to B UE/LE major muscle groups 2.? Impaired standing balance 3.? Impaired activity tolerance 4.? Shortness of breath Impairments are contributing to the following functional limitations: 1.? Difficulty with ambulation without assistive device and physical assistance 2.? Increased completion time for mobility ADL performance 3.? Increased risk for falls 4.? Difficulty with managing steps alone safely Goals: Goals X1 week 1. Supine-Sit independent MET 2. Sit-Supine independent MET 3. Sit-Stand independent NOT MET 4. Stand-Sit independent with FWW NOT MET 5. Bed-Chair independent with FWW NOT MET 6. Chair-Bed independent with FWW NOT MET 7. Independent gait on level surface with use of FWW for at least 200 feet without report of pain nor dyspnea NOT MET 8. Independent stair negotiation while holding onto B rails for at least 12 steps without report of pain nor dyspnea NOT MET 9. Independent with home exercise program NOT MET 10. Good static and dynamic standing balance/tolerance NOT MET DISCHARGE RECOMMENDATIONS: [] ? Home with no services [] [] ? Home with services [specify] [] ? Home with outpatient PT [] [X] ? SNF for continued rehabilitation.? Patient will benefit from detention facility placement for continued skilled physical therapy services in order to progress mobility level, strength, and balance in preparation for a safe discharge to home. [] ? Oil Pump Station Operator Chief Care [] [] ? SNF versus LTC based on ability to participate and progress [] TREATMENT CODE/TIME: GA Thank you for the opportunity to participate in the care of this patient. Paz De La O PT, DPT, CLT [facility] [place], [place]
== END 2022-09-25 10:54 | disposition skilled nursing facility (03) | DRG 193 ==
LOC: ER 16:58 → MS 17:12
PROVIDERS: Family Medicine; Nurse Practitioner Family; Student in an Organized Health Care Education/Training Program; Admitting Provider Internal Medicine; Emergency Provider Emergency Medicine; PCP Family Medicine; Visit Provider Internal Medicine
DX: J18.9 Pneumonia, unspecified organism (principal); J96.01 Acute respiratory failure with hypoxia; J44.0 Chronic obstructive pulmonary disease with (acute) lower respiratory infection; J44.1 Chronic obstructive pulmonary disease with (acute) exacerbation; F32.A Depression, unspecified; F41.9 Anxiety disorder, unspecified; Z99.81 Dependence on supplemental oxygen; Z66 Do not resuscitate; E11.9 Type 2 diabetes mellitus without complications; Z87.891 Personal history of nicotine dependence
CPT/HCPCS: 36410; 36415; 71275; 80048; 80053; 82805; 84145; 87040; 87635; 87637; 93005; 94640; 96365; 96375; 97110; 97162; 97530; 99285; J1650; 36600; 71045; 83735; 83880; 84484; 85025; 85379; 86140; 93010; 94664; 94667; 94668; 94760; 99222; 99232; 99233; 99239; 99291; J0456; J0696; J1940; J2270; J2930; J3475; J7512; J7613; J7620; J7644